=== PATIENT | female | born 1960 | race African-American/Black ===

== ENCOUNTER 2022-03-25 12:27 | Emergency (ER) | payer OTHER ==
--- OUTSIDE RECORDS SUMMARY | 2022-03-25 12:33 | XMS REPORT | Clinical Summary ---
:1960 Author Organization [facility] MD [facility] Address [address] [place] [address] Care Team Providers Name Role Phone Dusty Alvarez MD Primary Care Provider Allergies Active Allergy Reactions Severity Noted Date Comments Codeine Other (See Comments) 01/06/2018 Nausea/ vomiting Iodinated Contrast Media Hives, Swelling, High 12/25/2017 Pt reported Other (See Comments) general ized hives and itchiness, swel ling on the tongue , no SOB noted which happened outsid e facility. On 07/29/2018-pt is premedicated wi th 13 hour and benadr yl 25 mg Tolerates const rast with nephrostom y exchanges. 09/25/20 CT scan NO IV Contrast, Bariu m "banana" given for oral contrast Nitrofurantoin GI Intolerance 07/18/2020 Nausea, vom iting , Monohyd/M-Cryst indigestion Medications Medication Sig Dispensed Refills Start Date End Date Status lidocaine (LIDODERM) 5% Place 1 patch on 30 patch 0 2 Active (700 mg/patch) the skin daily. transdermal Remove & Discard patchIndications: patch within 12 Pyelonephritis hours or as directed by MD. Remove old patch(es) before replacing new patch(es). Additional Information Patient not taking. Reported on 03/20/2022 acetaminophen-codeine Take 1 tablet 30 tablet 0 03/20/2022 Active (TYLENOL #3) 300 mg-30 mg by mouth daily tabletIndications: Chronic as needed for pain, Neoplasm related moderate pain. pain (acute) (chronic) albuterol (VENTOLIN Inhale 1 puff 18 g 0 05/24/201903/27 Discontinued HFA,PROAIR HFA) 90 by mouth (Therapy mcg/puff 6 (six) hours comple yessenia) inhalerIndications: Cough as needed for wheezing or shortness of breath. multivitamin Take 1 tablet 0 03/27 Dis continued (multivitamin) tablet by mouth (Therapy daily. completed) pantoprazole (Protonix) 20 Take 1 tablet 30 tablet 0 01/02 Discontinued mg EC tabletIndications: (20 mg) Encounter for other mouth daily preprocedural examination, with Gastro-esophageal reflux breakfast. disease without esophagitis, not otherwise specified amoxicillin (AMOXIL) 500 Take 1 capsule 14 capsule 0 03/27 Discontinued mg capsuleIndications: (500 mg) by (Therapy Recurrent urinary tract mouth twice completed) infection daily. levoFLOXacin (LEVAQUIN) Take 1 tablet 14 tablet 0 03/06/202105/27 Discontinued 250 mg tabletIndications: (250 mg) by 021 (Therapy Recurrent urinary tract mouth daily. completed) infection acetaminophen-codeine Take 1 tablet 10 tablet 0 03/09/2021 Discontinued (TYLENOL #3) 300 mg-30 mg by mouth (Reorder) tabletIndications: Chronic (three) times pain, Neoplasm related a day as pain (acute) (chronic) needed for moderate pain. acetaminophen-codeine Take 1 tablet 30 tablet 0 03/31/2021 Discontinued (TYLENOL #3) 300 mg-30 mg by mouth (Reorder) tabletIndications: Chronic (three) times pain, Neoplasm related a day as pain (acute) (chronic) needed for moderate pain. ciprofloxacin HCl (CIPRO) Take 1 tablet 14 tablet 0 05/02/202106/23 Discontinued 500 mg tabletIndications: (500 mg) by 2 022 (Reorder) Recurrent urinary tract mouth twice infection daily. ciprofloxacin HCl (CIPRO) Take 1 tablet 32 tablet 0 06/23/202107/09 500 mg tabletIndications: (500 mg) by 2 022 Recurrent urinary tract mouth twice infection daily for 16 days. ciprofloxacin HCl (Cipro) Take 1 tablet 10 tablet 0 07/03/202110/02 Discontinued 250 mg tabletIndications: (250 mg) by Recurrent urinary tract mouth twice infection daily. amoxicillin-clavulanate Take 1 tablet 14 tablet 0 07/03/2021 0 01/02 Discontinued (Augmentin) 875 mg-125 mg (875 mg) by per tabletIndications: mouth twice Recurrent urinary tract daily. infection ciprofloxacin HCl (CIPRO) Take 1 tablet 14 tablet 0 10/02/202101/02 Discontinued 500 mg tabletIndications: (500 mg) by Hydronephrosis with mouth twice ureteral stricture, daily. Recurrent urinary tract infection acetaminophen-codeine Take 1 tablet 30 tablet 0 11/23/2021 Discontinued (TYLENOL #3) 300 mg-30 mg by mouth (Reorder) tabletIndications: Chronic (three) times pain, Neoplasm related a day as pain (acute) (chronic) needed for moderate pain. polyethylene glycol Take 17 g by 30 packet 0 01/06/202202/05 (MIRALAX) 17 g mouth daily packetIndications: Chronic for 30 days. pain NIFEdipine (PROCARDIA XL) Take 1 tablet 30 tablet 0 01/07/202202/06 30 mg 24 hr (30 mg) by tabletIndications: mouth daily Pyelonephritis for 30 days. Additional Information Patient not taking. Reason: she doesnt need it, Reported on 01/10/2022 senna (SENOKOT) 8.6 mg Take 2 tablets 120 tablet 0 01/06/2022 02/05/2022 tabletIndications: by mouth twice Pyelonephritis daily for 30 days. ciprofloxacin HCl (Cipro) Take 1 tablet 20 tablet 0 01/06/2022 01/16/2022 500 mg tabletIndications: (500 mg) by Pyelonephritis mouth twice daily for 10 days. amoxicillin (AMOXIL) 500 mg Take 1 capsule 30 capsule 0 202101/16/2022 capsuleIndications: (500 mg) by Pyelonephritis mouth 3 (three) times a day for 10 days. Active Problems Patient Care Coordination Note Formatting of this note might be differe nt from the original. The following people are approved to obt ain medical information about the patient via phone: Contakct #1: Name: Roel Stewart Contact #2: Name: Phone Number: Contact #3: Name: Phone Number: Contact #4: Name: Phone Number: Problem Noted Date Hydronephrosis with ureteral stricture 04/25/2020 Overview: Added automatically from request for [place] [id number] Generalized headache 03/15/2020 Adjustment disorder with depressed mood 03/15/2020 Vaginal bleeding problem 10/12/2019 Extrinsic ureteral obstruction 07/14/2019 Anemia of chronic disease 06/21/2019 Chronic pain 06/21/2019 Neck pain 05/28/2019 Dyspnea 05/28/2019 Other mechanical complication of nephrostomy catheter 05/24/2019 Cough 05/24/2019 Pleuritic pain 05/24/2019 Hypertension 03/16/2019 Headache 03/16/2019 Anemia in neoplastic disease 03/12/2019 Fever greater than 100.4 Fahrenheit 03/11/2019 Right flank pain 03/11/2019 Pyelonephritis 03/11/2019 Chronic kidney disease stage 3A 02/03/2019 Fever 02/03/2019 Allergy to contrast media 10/14/2018 Severe protein-calorie malnutrition 08/08/2018 Pyelonephritis 08/07/2018 Febrile neutropenia 08/07/2018 Follicular lymphoma grade II 07/30/2018 History of ureteral obstruction 05/23/2018 Overview: Added automatically from request for [place] [id number] Neoplasm related pain (acute) (chronic) 01/29/2018 Urinary tract infectious disease 01/29/2018 Nephrostomy status 01/28/2018 Follicular low grade B-cell lymphoma 01/15/2018 Hydronephrosis 12/26/2017 Dysuria Rhinovirus infection in conditions classified elsewher e and of unspecified site Chronic kidney disease Resolved Problems Problem Noted Date Resolved Date Left flank pain 01/28/2018 06/22/2021 Encounters Date Type Specialty Care Team Description 03/20/2022 Hospital Encounter Pain Medicine Jamie, Chronic pain; Wardnalxioamrahmi, Neoplasm relat ed pain (acute) (chronic) 03/20/2022 Travel 03/20/2022 Orders Only Pain Medicine Jamie, Chronic pain (Primary Dhanalenrikei, Dx) 03/19/2022 Orders Only Pain Medicine Tabansi, Chronic pain ( Primary Annemarie Vasquez MD Dx) 03/12/2022 Office Visit Lymphoma and Myeloma Chelsea Alvarez MD B-cell lymphoma 03/12/2022 Orders Only Radiology Don Melendez MD 03/12/2022 Travel 03/11/2022 Hospital Encounter Radiology Chloe Shaw Follicul ar low grade PA B-cell lymphoma 03/11/2022 Hospital Encounter Lab Chloe Shaw Follicul ar low grade PA B-cell lymphoma 03/11/2022 Travel 01/24/2022 Anesthesia Event Anesthesiology Jarocho Park APN 01/24/2022 POEM Appointments Anesthesiology Kayleen Pace PA 01/11/2022 Orders Only Urology Colleen Alexandra Hydronephrosis with ZHANG Ortiz ureteral strict ure (Primary Dx) 01/10/2022 Anesthesia Event Ambulatory Surgery Kourtney Javier MD French-Bloom, Katy, MD 01/10/2022 Surgery Ambulatory Surgery Devin Husain CYSTOURE THROSCOPY, Jose JOHNS MD WITH REMOVAL OF URETERAL STENT; routine left ur eteral stent exchange 01/10/2022 Ancillary Procedure Radiology Hydronep hrosis with ureteral strict ure 01/10/2022 Hospital Encounter Ambulatory Surgery Devin Husain Hy dronephrosis, not otherwise specified (Primary Dx); Jose JOHNS MD Hydronephrosis with ureteral stricture; Urinary tract i nfectious disease 01/10/2022 Travel 01/09/2022 Anesthesia Event Anesthesiology Deneen Cottrell NP 01/09/2022 POEM Appointments Anesthesiology Devin Husain Hydrone phrosis with Jose JOHNS MD ureteral strict ure 01/08/2022 Office Visit Lymphoma and Myeloma Chelsea Alvarez MD B-cell lymphoma 01/08/2022 Office Visit Urology Devin Husain Hydronephrosis with Jose JOHNS MD ureteral strict ure 01/08/2022 Clinical Support Devin Morales Suspected COVID-19 (Primary Dx); Jose JOHNS MD Hydronephrosis with ureteral stricture Lucy Bishop RN 01/08/2022 Hospital Encounter Radiology Chloe Shaw, No Show PA 01/08/2022 Hospital Encounter Lab Chloe Shaw Angella ar low grade B-cell lymphoma; LIDA Hydronephrosis with ureteral stricture 01/08/2022 Travel 01/05/2022 Anesthesia Event Radiology Summer Sewell, Mally Rivera CRNA 01/05/2022 Travel 01/03/2022 Orders Only Dudley, Feli T, 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 01/02/2022 Documentation Physical Therapy Funmi Soto, PT 01/01/2022 Hospital Encounter GIM/Phase 1 Markides, Urinary t ract infection (Primary Dx); - Genesis Ferrera MD Back pain; 01/06/2022 Giorgi Lewis, Hydronephrosis with ureteral stricture; Nephrostomy status; Mauricio Starr, Hydronephrosi s; Pyelonephritis; Urinary tract i nfectious disease; Chronic pain 01/01/2022 Travel 12/22/2021 POEM Appointments Anesthesiology Katelynn Candeandraed (Error) LIDA Beyer 11/23/2021 Hospital Encounter Pain Medicine Jamie, Chronic pain; Katrin, Neoplasm relat ed pain (acute) (chronic) 11/23/2021 Travel 10/27/2021 Orders Only Radiology Kayleen aPce PA 10/26/2021 Anesthesia Event Radiology Letty Bales MD Benton, Monica, CRNA 10/26/2021 Hospital Encounter Radiology Keith, Nephrosto my status (Primary Dx); LIDA Mendosa Encounter for other preprocedural examin ation; Rolando, Hydronephrosis with ureteral stricture CHUCHO Haney Angela, MD Ahrar, Judy, MD 10/26/2021 Travel 10/25/2021 Anesthesia Event Anesthesiology Angela Baca, KWASI 10/25/2021 POEM Appointments Anesthesiology Dusty Alvarez MD 10/25/2021 Clinical Support Luis Alvarez, Suspected C OVID-19 MD Dusty (Primary Dx) Alexandra Jauregui, RN 10/25/2021 Orders Only Radiology Ariana Vargas PA 10/25/2021 Travel 10/06/2021 Orders Only Urology Colleen Alexandra 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, 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 (Primary Dx) 10/04/2021 Ancillary Procedure Radiology 10/04/2021 Surgery Ambulatory Surgery Devin Husain CYSTOURE THROSCOPY WITH Jose JOHNS MD INSERTION OF INDWELLING URET ERAL STENT; left ure teral stent exchange 10/04/2021 Anesthesia Event Ambulatory Surgery Jaime Gill MD 10/04/2021 Hospital Encounter Ambulatory Surgery Devin Husain Ex trinsic ureteral obstruction (Primary Dx); Jose JOHNS MD Hydronephrosis with ureteral stricture 10/04/2021 Travel 10/03/2021 Anesthesia Event Anesthesiology Lynnette Beltran NP 10/03/2021 POEM Appointments Anesthesiology Devin Husain Extrins ic ureteral Jose JOHNS MD obstruction 10/02/2021 Office Visit Urology Devin Husain Recurrent urin mirella tract infection (Primary Dx); Jose JOHNS MD Hydronephrosis with ureteral stricture 10/02/2021 Clinical Support Devin Morales Suspected COVID-19 (Primary Dx); Jose JOHNS MD Extrinsic ureteral obstruction Erasto Jo RN 10/02/2021 Hospital Encounter Lab Devin Husain Extrinsi c ureteral Jose JOHNS MD obstruction 10/02/2021 Travel 08/15/2021 Orders Only Urology Alexandra, Colleen Extrinsic urete ral Hwan, 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 (Pr imary Dx) 07/27/2021 Anesthesia Event Radiology Lillian Camacho MD Cho, Morgan, CHUCHO 07/27/2021 Hospital Encounter Radiology Alexandra, Colleen Hydroneph rosis with 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, 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 Lillian Camacho MD Cho, Morgan, Dileep Castillo MD 07/27/2021 Orders Only Urology Alexanrda, Colleen Extrinsic urete ral Hwan, 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 (Pr imary Dx) 07/27/2021 Orders Only Radiology Cristin Segura PA 07/27/2021 Travel 07/26/2021 Anesthesia Event Anesthesiology [place] APN 07/26/2021 POEM Appointments Anesthesiology Svetlana Farooq PA 07/26/2021 Clinical Support Luis Alvarez, Suspected C OVID-19 MD Dusty (Primary Dx) Ilir Hough MA 07/26/2021 Orders Only Radiology Akilah Elizabeth PA 07/26/2021 Travel 07/05/2021 Ancillary Procedure Radiology Extrinsi c ureteral obstruction 07/05/2021 Anesthesia Event Ambulatory Surgery Brie Ramon MD 07/05/2021 Surgery Ambulatory Surgery Devin Husain CYSTOURE THROSCOPY, Jose JOHNS MD WITH EXCHANGE O F URETERAL STENT 07/05/2021 Hospital Encounter Ambulatory Surgery Devin Husain Hy dronephrosis with ureteral stricture (Primary Dx); Jose JOHNS MD Extrinsic urete ral obstruction 07/05/2021 Travel 07/04/2021 Travel 07/03/2021 Anesthesia Event Anesthesiology Chrsitelle Salvador MA 07/03/2021 POEM Appointments Anesthesiology Devin Husain Extrins ic ureteral Jose JOHNS MD obstruction 07/03/2021 Office Visit Urology Devin Husain Recurrent urin mirella tract infection (Primary Dx); Jose JOHNS MD Extrinsic urete ral obstruction 07/03/2021 Clinical Support Covid Colleen Alexandra Suspected C OVID-19 (Primary Dx); ZHANG Ortiz Extrinsic ureteral obstruction Angelika Wiley, KWASI 07/03/2021 Hospital Encounter Lab Husain Devin Extrinsi c ureteral obstruction; Jose JOHNS MD Hydronephrosis with ureteral stricture 07/03/2021 Travel 06/24/2021 Telephone Lymphoma and Myeloma Dusty Alvarez MD 06/24/2021 Telephone Kaykay Styles, Discharge Oleksandr salazar RN 06/23/2021 Orders Only Radiology Papa Partida, RT 06/22/2021 Travel 06/21/2021 Emergency Clinical Decision Bernal, Nephrostom y status (Primary Dx); - MD Toy Right flank pain; 06/23/2021 Mckeon, Nephrostomy; Bubba Up MD Hydronephrosis with ureteral stricture; Chaftari, Recurrent urina ry tract infection MD Tristan 06/21/2021 Travel 05/23/2021 Orders Only Radiology Svetlana Farooq PA 05/02/2021 Orders Only Urology Colleen Alexandra Recurrent urina ry ZHANG Ortiz tract infection (Primary Dx) 05/01/2021 Anesthesia Event Radiology Summer Sewell MD 05/01/2021 Hospital Encounter Radiology Colleen Alexandra Hydroneph rosis with ureteral stricture (Primary Dx); ZHANG Ortiz Extrinsic ureteral obstruction Summer Sewell MD Lee, Shelly, CRNA Steele, Joseph R., MD 05/01/2021 Travel 04/28/2021 Anesthesia Event Anesthesiology [place] APN 04/28/2021 POEM Appointments Anesthesiology Dusty Alvarez MD 04/28/2021 Orders Only Radiology Brigette Cisneros PA 04/27/2021 Clinical Support Luis Perez, Encounter f or LIDA Chairez observation for other Eltaha, Roba, suspected expo sure to RN biological agen t ruled out (Primary Dx ) 04/27/2021 Hospital Encounter Lab Mihaela Perez PA 04/27/2021 Travel 04/25/2021 Orders Only Radiology Mihaela Perez PA 04/24/2021 Orders Only Urology Colleen Alexandra Extrinsic urete ral obstruction (Primary Dx); ZHANG Ortiz Recurrent urina ry tract infection 03/31/2021 Hospital 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, Rigoberto, Pleuri tic pain (Primary Dx); Chronic pain; Neoplasm relate d pain (acute) (chronic); History of uret eral obstruction; Flank pain 03/31/2021 Travel 03/27/2021 Office Visit Lymphoma and Myeloma Chelsea Alvarez low grade MD Dusty B-cell lymphoma 03/27/2021 Hospital Encounter Lab Sammi Daley low grade LIDA Yeager B-cell lymphoma 03/27/2021 Travel after 03/25/2021 Immunizations Name Administration Dates Next Due Pfizer SARS-CoV-2 Vaccination (Purple Cap) 01/07/2021, 11/18 Surgical History Surgery Date Site/Laterality Comments HYSTERECTOMY 05/20/2000 - 05/19/2001 RENAL ARTERY STENT 05/20/2017 - Left 05/19/2018 NEPHROSTOMY PERCUTANEOUS 05/20/2017 - Bilateral 05/19/2018 MT CYSTOSCOPY,INSERT 05/29/2018 Ureter/Left Procedure: URETERAL STENT CYSTOURETHROSCOP Y WITH REMOVAL OF INDWE LLING URETERAL STENT; Surgeon: Gurjit Macario IV, MD; Location: [facility] ; Service: UROLOGY APPENDECTOMY 05/20/1994 - Laproscopic 05/19/1995 MT CYSTOSCOPY,INSERT 05/04/2020 Bladder/Bilateral Procedure : URETERAL STENT CYSTOURETHROSCOP Y WITH INSERTION OF IND WELLING URETERAL STENT; Surgeon: Devin Sapp II, MD; [facility]; Service: UROLOGY MT CYSTOURETHROSCOPY 07/13/2020 Ureter/Bilateral Procedure: CYSTOURETHROSCOP Y WITH STENT EXCHANGE A ND RETROGRADE PYELO GRAM; Surgeon: Devin Husain III, MD; Locatio n: [facility]; Service: URO LOGY MT CYSTOSCOPY,INSERT 10/12/2020 Ureter/Bilateral Procedure: URETERAL STENT CYSTOURETHROSCOP Y WITH INSERTION OF IND WELLING URETERAL STENT; Surgeon: Devin Sapp II, MD; [facility]; Service: UROLOGY MT CYSTOSCOPY,REMV 03/08/2021 Genitalia/Bilateral Procedure : CALCULUS,SIMPLE CYSTOURETHROSCOP Y, WITH REMOVAL OF FOREI GN BODY, CALCULUS, OR URE TERAL STENT FROM URETH RA OR BLADDER; exchang e left ureteral stent, removal right ureteral s tent.; Surgeon: Devin Husain III, MD; [facility]atio n: [facility]; Service: URO LOGY MT CYSTOSCOPY,REMV 07/05/2021 Ureter/Left Procedure: CALCULUS,SIMPLE CYSTOURETHROSCOP Y, WITH EXCHANGE OF URET ERAL STENT; Surgeon: Devin Husain III, MD; L ocation: [facility]; Service : UROLOGY MT CYSTOSCOPY,INSERT 10/04/2021 Ureter/Left Procedure: URETERAL STENT CYSTOURETHROSCOP Y WITH INSERTION OF IND WELLING URETERAL STENT; left ureteral stent e xchange; Surgeon: Devin Husain III, MD; [facility]atio n: [facility]; Service: URO LOGY MT CYSTOSCOPY,REMV 01/10/2022 Genitalia/Left Procedure: CALCULUS,SIMPLE CYSTOURETHROSCOP Y, WITH REMOVAL OF URETE RAL STENT; routine left ure teral stent exchange; Surgeon: Devin Sapp II, MD; [facility]; Service: UROLOGY Medical History Medical History Date Comments Menopause 2000 Depressive disorder 2017 Anxiety 2018 Acute renal insufficiency 2018 Cancer Pulmonary embolism 01/28/2018 Urinary tract infection 01/29/2018 Hypertension 03/16/2019 Gastroesophageal reflux disease Adjustment disorder with depressed mood 11/01/2018 Follicular low grade B-cell lymphoma Family History Medical History Relation Name Comments Glaucoma Maternal Grandmother Diabetes Mother Sangeeta Rocael Glaucoma Mother Sangeeta Rocael Macular degeneration Neg Hx Relation Name Status Comments Maternal Grandmother Mother Sangeeta Cote Social History Tobacco Use Types Packs/Day Years Used Date Smoking Tobacco: Former Cigarettes 0.5 5 Smokeless Tobacco: Never Alcohol Use Standard Drinks/Week Comments Not Currently 0 (1 standard drink = 0.6 oz pure only d rink about once per month alcohol) Sex Assigned at Date Recorded Not on file Job Start Date Occupation Industry Not on file Not on file Not on file COVID-19 Exposure Response Date Recorded In the last 10 days, have you been in contact with No / Unsu re 03/20/2022 1:39 PM CDT someone who was confirmed or suspected to have Coronavirus/COVID-19? Obstetrics History Para Term AB IAB SAB Ectopic Multiple Living Live Births 2 2 1 Date Outcome GA Total Labor/2nd/3rd Weight Sex Delivery Anes PTL Karla A 1 A5 Name Clin Labor Para Para Comments Menarche: 13 Menopause 2000 ASHLI/BS 2 SVDs OCP none HRT: none Paps all normal Last Filed Vital Signs Vital Sign Reading Time Taken Comments Blood Pressure 167/97 03/20/2022 2:20 PM CDT Pulse 64 03/20/2022 2:20 PM CDT Temperature 36.8 C (98.2 F) 03/20/2022 2:20 PM CDT Respiratory Rate 16 03/20/2022 2:20 PM CDT Oxygen Saturation 100% 03/12/2022 10:24 AM CDT Inhaled Oxygen Concentration - - Weight 70.8 kg (156 lb 1.4 oz) 03/12/2022 10:16 AM CDT Height 165.1 cm (5' 5") 01/02/2022 3:40 PM CDT Body Mass Index 25.97 01/02/2022 3:40 PM CDT Plan of Treatment Date Type Specialty Care Team Description 03/30/2022 Clinical Support Dusty Nicole MD [address] [place] [phone] 03/30/2022 POEM Appointments Anesthesiology Dusty Alvarez MD [address] [place] [phone] 04/02/2022 Appointment Radiology Mauricio Starr MD [address] [place] [phone] 04/16/2022 Appointment Devin Balderrama III, MD [address] [place] [phone] 04/16/2022 Clinical Support Devin Morales III, MD [address] [place] [phone] 04/16/2022 Office Visit Urology Devin Husain III, MD [address] [place] [phone] 04/18/2022 Hospital Encounter Ambulatory Surgery Devin Husain III, MD [address] [place] [address] 04/18/2022 Surgery Ambulatory Surgery Devin Husain CYSTOU RETHROSCOPYNAT MD WITH REMOVAL OF [address] [place] [address] FOREIGN BODY, [facility] CALCULUS, [place], [place] URETERAL STENT [id number] FROM URETHRA OR [phone] BLADDER; stent (Work) exchange 06/21/2022 Appointment Pain Medicine Katrin Ayala MD [address] [place] [phone] 03/17/2023 Appointment Lab Chloe Shaw PA [address] [place] [phone] 03/17/2023 Appointment Radiology Chloe Shaw PA [address] [place] [phone] 03/18/2023 Office Visit Lymphoma and Myeloma Dusty Alvarez MD [address] [place] [address] Name Priority Associated Diagnoses Date/Time CYSTOURETHROSCOPY, WITH Hydronephrosis with uret eral 04/18/2022 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 CT NECK WO CONTRAST Routine 03/11/2022 11:02 Follicular low gr maria luz Results for this LYMPHOMA AM CDT B-cell lymphoma procedure ar e in the results section. FRACTIONATED BILIRUBIN Routine 03/11/2022 7:27 Follicular low grade Results for this AM CDT B-cell lymphoma procedure ar e in the results section. TOTAL PROTEIN Routine 03/11/2022 7:27 Follicular low grade Res ults for this AM CDT B-cell lymphoma procedure ar e in the results section. ASPARTATE Routine 03/11/2022 7:27 Follicular low grade Resu lts for this AMINOTRANSFERASE AM CDT B-cell lymphoma procedur e are in the results section. ALANINE Routine 03/11/2022 7:27 Follicular low grade Resu lts for this AMINOTRANSFERASE AM CDT B-cell lymphoma procedur e are in the results section. ALKALINE PHOSPHATASE Routine 03/11/2022 7:27 Follicular low gr maria luz Results for this AM CDT B-cell lymphoma procedure ar e in the results section. ALBUMIN LEVEL Routine 03/11/2022 7:27 Follicular low grade Res ults for this AM CDT B-cell lymphoma procedure ar e in the results section. CALCIUM LEVEL TOTAL Routine 03/11/2022 7:27 Follicular low gra de Results for this AM CDT B-cell lymphoma procedure ar e in the results section. .GLOMERULAR FILTRATION Routine 03/11/2022 7:27 Follicular low grade Results for this RATE AM CDT B-cell lymphoma procedure ar e in the results section. SERUM CREATININE Routine 03/11/2022 7:27 Follicular low grade Results for this AM CDT B-cell lymphoma procedure ar e in the results section. ELECTROLYTE PANEL Routine 03/11/2022 7:27 Follicular low grade Results for this AM CDT B-cell lymphoma procedure ar e in the results section. BLOOD UREA NITROGEN Routine 03/11/2022 7:27 Follicular low gra de Results for this AM CDT B-cell lymphoma procedure ar e in the results section. GLUCOSE LEVEL Routine 03/11/2022 7:27 Follicular low grade Res ults for this AM CDT B-cell lymphoma procedure ar e in the results section. MANUAL DIFFERENTIAL Routine 03/11/2022 7:27 Follicular low gra de Results for this AM CDT B-cell lymphoma procedure ar e in the results section. Results CBC Routine 03/11/2022 7:27 Follicular low grade Resu lts for this AM CDT B-cell lymphoma procedure ar e in the results section. URIC ACID Routine 03/11/2022 7:27 Follicular low grade Resu lts for this AM CDT B-cell lymphoma procedure ar e in the results section. LACTATE DEHYDROGENASE Routine 03/11/2022 7:27 Follicular low g rade Results for this AM CDT B-cell lymphoma procedure ar e in the results section. PHOSPHORUS LEVEL Routine 03/11/2022 7:27 Follicular low grade Results for this AM CDT B-cell lymphoma procedure ar e in the results section. MAGNESIUM LEVEL Routine 03/11/2022 7:27 Follicular low grade R esults for this AM CDT B-cell lymphoma procedure ar e in the results section. 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 CYSTOURETHROSCOPY, WITH 01/10/2022 2:09 Hydronephrosis with REMOVAL OF FOREIGN PM CDT ureteral stricture BODY, CALCULUS, OR URETERAL STENT FROM URETHRA OR BLADDER Special Needs PW @ 11:00 RACHEL 1 F/M COVID-19 (SARS-COV-2) Routine 01/08/2022 9:43 Suspected COV ID-19 Results for PCR ASYMPTOMATIC AM CDT this proced ure are in the results section. CLOT EXPIRATION DATE Routine 01/08/2022 9:18 Resu lts for AM CDT this procedure are in the results section. TMP INTERPRETATION Routine 01/08/2022 9:18 Result s for ANTIBODY SCREEN NEGATIVE AM CDT thi s procedure are in the results section. ANTIBODY SCREEN Routine 01/08/2022 9:18 Hydronephrosis with Re sults for AM CDT ureteral stricture this proc edure are in the results section. ABORH Routine 01/08/2022 9:18 Hydronephrosis with Resul ts for AM CDT ureteral stricture this proc edure are in the results section. FRACTIONATED BILIRUBIN Routine 01/08/2022 9:18 Follicular low grade Results for AM CDT B-cell lymphoma this procedu re are in the results section. TOTAL PROTEIN Routine 01/08/2022 9:18 Follicular low grade Res ults for AM CDT B-cell lymphoma this procedu re are in the results section. ASPARTATE Routine 01/08/2022 9:18 Follicular low grade Resu lts for AMINOTRANSFERASE AM CDT B-cell lymphoma this pro cedure are in the results section. ALANINE AMINOTRANSFERASE Routine 01/08/2022 9:18 Follicular lo w grade Results for AM CDT B-cell lymphoma this procedu re are in the results section. ALKALINE PHOSPHATASE Routine 01/08/2022 9:18 Follicular low gr maria luz Results for AM CDT B-cell lymphoma this procedu re are in the results section. ALBUMIN LEVEL Routine 01/08/2022 9:18 Follicular low grade Res ults for AM CDT B-cell lymphoma this procedu re are in the results section. CALCIUM LEVEL TOTAL Routine 01/08/2022 9:18 Follicular low gra de Results for AM CDT B-cell lymphoma this procedu re are in the results section. .GLOMERULAR FILTRATION Routine 01/08/2022 9:18 Follicular low grade Results for RATE AM CDT B-cell lymphoma this procedu re are in the results section. 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 BLOOD UREA NITROGEN Routine 01/08/2022 9:18 Follicular low gra de Results for AM CDT B-cell lymphoma this procedu re are in the results section. GLUCOSE LEVEL Routine 01/08/2022 9:18 Follicular low grade Res ults for AM CDT B-cell lymphoma this procedu re are in the results section. MANUAL DIFFERENTIAL Routine 01/08/2022 9:18 Follicular low gra de Results for AM CDT B-cell lymphoma this procedu re are in the results section. Results CBC Routine 01/08/2022 9:18 Follicular low grade Resu lts for AM CDT B-cell lymphoma this procedu re are in the results section. TYPE AND SCREEN Routine 01/08/2022 9:18 Hydronephrosis with AM CDT ureteral stricture URIC ACID Routine 01/08/2022 9:18 Follicular low grade Resu lts for AM CDT B-cell lymphoma this procedu re are in the results section. LACTATE DEHYDROGENASE Routine 01/08/2022 9:18 Follicular low g rade Results for AM CDT B-cell lymphoma this procedu re are in the results section. 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 MAGNESIUM LEVEL Routine 01/08/2022 9:18 Follicular low grade R esults for AM CDT B-cell lymphoma this procedu re are in the results section. COMPREHENSIVE METABOLIC Routine 01/08/2022 9:18 Follicular low grade PANEL AM CDT B-cell lymphoma COMPLETE BLOOD COUNT W/ Routine 01/08/2022 9:18 Follicular low grade DIFFERENTIAL AM CDT B-cell lymphoma FRACTIONATED BILIRUBIN AM 01/06/2022 8:24 Re sults for AM CDT this procedure are in the results section. TOTAL PROTEIN AM 01/06/2022 8:24 Results for AM CDT this procedure are in the results section. ASPARTATE AM 01/06/2022 8:24 Results for AMINOTRANSFERASE AM CDT this proced ure are in the results section. ALANINE AMINOTRANSFERASE AM 01/06/2022 8:24 Results for AM CDT this procedure are in the results section. ALKALINE PHOSPHATASE AM 01/06/2022 8:24 Resu lts for AM CDT this procedure are in the results section. ALBUMIN LEVEL AM 01/06/2022 8:24 Results for AM CDT this procedure are in the results section. CALCIUM LEVEL TOTAL AM 01/06/2022 8:24 Resul ts for AM CDT this procedure are in the results section. .GLOMERULAR FILTRATION AM 01/06/2022 8:24 Re sults for RATE AM CDT this procedure are in the results section. SERUM CREATININE AM 01/06/2022 8:24 Results for AM CDT this procedure are in the results section. ELECTROLYTE PANEL AM 01/06/2022 8:24 Results for AM CDT this procedure are in the results section. BLOOD UREA NITROGEN AM 01/06/2022 8:24 Resul ts for AM CDT this procedure are in the results section. GLUCOSE LEVEL AM 01/06/2022 8:24 Results for AM CDT this procedure are in the results section. MANUAL DIFFERENTIAL AM 01/06/2022 8:24 Resul ts for AM CDT this procedure are in the results section. Results CBC AM 01/06/2022 8:24 Results for AM CDT this procedure are in the results section. PHOSPHORUS LEVEL AM 01/06/2022 8:24 Results for AM CDT this procedure are in the results section. MAGNESIUM LEVEL AM 01/06/2022 8:24 Results f or AM CDT this procedure are in the results section. COMPREHENSIVE METABOLIC AM 01/06/2022 8:24 PANEL AM CDT COMPLETE BLOOD COUNT W/ AM 01/06/2022 8:24 DIFFERENTIAL AM CDT IR NEPHROSTOMY EXCHANGE Routine 01/05/2022 10:03 Pyelonephriti s Results for AM CDT this procedure are in the results section. FRACTIONATED BILIRUBIN AM 01/05/2022 5:37 Re sults for AM CDT this procedure are in the results section. TOTAL PROTEIN AM 01/05/2022 5:37 Results for AM CDT this procedure are in the results section. ASPARTATE AM 01/05/2022 5:37 Results for AMINOTRANSFERASE AM CDT this proced ure are in the results section. ALANINE AMINOTRANSFERASE AM 01/05/2022 5:37 Results for AM CDT this procedure are in the results section. ALKALINE PHOSPHATASE AM 01/05/2022 5:37 Resu lts for AM CDT this procedure are in the results section. ALBUMIN LEVEL AM 01/05/2022 5:37 Results for AM CDT this procedure are in the results section. CALCIUM LEVEL TOTAL AM 01/05/2022 5:37 Resul ts for AM CDT this procedure are in the results section. .GLOMERULAR FILTRATION AM 01/05/2022 5:37 Re sults for RATE AM CDT this procedure are in the results section. SERUM CREATININE AM 01/05/2022 5:37 Results for AM CDT this procedure are in the results section. ELECTROLYTE PANEL AM 01/05/2022 5:37 Results for AM CDT this procedure are in the results section. BLOOD UREA NITROGEN AM 01/05/2022 5:37 Resul ts for AM CDT this procedure are in the results section. GLUCOSE LEVEL AM 01/05/2022 5:37 Results for AM CDT this procedure are in the results section. MANUAL DIFFERENTIAL AM 01/05/2022 5:37 Resul ts for AM CDT this procedure are in the results section. Results CBC AM 01/05/2022 5:37 Results for AM CDT this procedure are in the results section. PHOSPHORUS LEVEL AM 01/05/2022 5:37 Results for AM CDT this procedure are in the results section. MAGNESIUM LEVEL AM 01/05/2022 5:37 Results f or AM CDT this procedure are in the results section. COMPREHENSIVE METABOLIC AM 01/05/2022 5:37 PANEL AM CDT COMPLETE BLOOD COUNT W/ AM 01/05/2022 5:37 DIFFERENTIAL AM CDT FRACTIONATED BILIRUBIN AM 01/04/2022 4:22 Re sults for AM CDT this procedure are in the results section. TOTAL PROTEIN AM 01/04/2022 4:22 Results for AM CDT this procedure are in the results section. ASPARTATE AM 01/04/2022 4:22 Results for AMINOTRANSFERASE AM CDT this proced ure are in the results section. ALANINE AMINOTRANSFERASE AM 01/04/2022 4:22 Results for AM CDT this procedure are in the results section. ALKALINE PHOSPHATASE AM 01/04/2022 4:22 Resu lts for AM CDT this procedure are in the results section. ALBUMIN LEVEL AM 01/04/2022 4:22 Results for AM CDT this procedure are in the results section. CALCIUM LEVEL TOTAL AM 01/04/2022 4:22 Resul ts for AM CDT this procedure are in the results section. .GLOMERULAR FILTRATION AM 01/04/2022 4:22 Re sults for RATE AM CDT this procedure are in the results section. SERUM CREATININE AM 01/04/2022 4:22 Results for AM CDT this procedure are in the results section. ELECTROLYTE PANEL AM 01/04/2022 4:22 Results for AM CDT this procedure are in the results section. BLOOD UREA NITROGEN AM 01/04/2022 4:22 Resul ts for AM CDT this procedure are in the results section. GLUCOSE LEVEL AM 01/04/2022 4:22 Results for AM CDT this procedure are in the results section. MANUAL DIFFERENTIAL AM 01/04/2022 4:22 Resul ts for AM CDT this procedure are in the results section. Results CBC AM 01/04/2022 4:22 Results for AM CDT this procedure are in the results section. PHOSPHORUS LEVEL AM 01/04/2022 4:22 Results for AM CDT this procedure are in the results section. MAGNESIUM LEVEL AM 01/04/2022 4:22 Results f or AM CDT this procedure are in the results section. COMPREHENSIVE METABOLIC AM 01/04/2022 4:22 PANEL AM CDT COMPLETE BLOOD COUNT W/ AM 01/04/2022 4:22 DIFFERENTIAL AM CDT XR ABDOMEN AP Routine 01/03/2022 11:30 Results fo r AM CDT this procedure are in the results section. FRACTIONATED BILIRUBIN AM 01/03/2022 4:40 Re sults for AM CDT this procedure are in the results section. TOTAL PROTEIN AM 01/03/2022 4:40 Results for AM CDT this procedure are in the results section. ASPARTATE AM 01/03/2022 4:40 Results for AMINOTRANSFERASE AM CDT this proced ure are in the results section. ALANINE AMINOTRANSFERASE AM 01/03/2022 4:40 Results for AM CDT this procedure are in the results section. ALKALINE PHOSPHATASE AM 01/03/2022 4:40 Resu lts for AM CDT this procedure are in the results section. ALBUMIN LEVEL AM 01/03/2022 4:40 Results for AM CDT this procedure are in the results section. CALCIUM LEVEL TOTAL AM 01/03/2022 4:40 Resul ts for AM CDT this procedure are in the results section. .GLOMERULAR FILTRATION AM 01/03/2022 4:40 Re sults for RATE AM CDT this procedure are in the results section. SERUM CREATININE AM 01/03/2022 4:40 Results for AM CDT this procedure are in the results section. ELECTROLYTE PANEL AM 01/03/2022 4:40 Results for AM CDT this procedure are in the results section. BLOOD UREA NITROGEN AM 01/03/2022 4:40 Resul ts for AM CDT this procedure are in the results section. GLUCOSE LEVEL AM 01/03/2022 4:40 Results for AM CDT this procedure are in the results section. MANUAL DIFFERENTIAL AM 01/03/2022 4:40 Resul ts for AM CDT this procedure are in the results section. Results CBC AM 01/03/2022 4:40 Results for AM CDT this procedure are in the results section. PHOSPHORUS LEVEL AM 01/03/2022 4:40 Results for AM CDT this procedure are in the results section. MAGNESIUM LEVEL AM 01/03/2022 4:40 Results f or AM CDT this procedure are in the results section. COMPREHENSIVE METABOLIC AM 01/03/2022 4:40 PANEL AM CDT COMPLETE BLOOD COUNT W/ AM 01/03/2022 4:40 DIFFERENTIAL AM CDT FRACTIONATED BILIRUBIN STAT 01/02/2022 12:55 R esults for PM CDT this procedure are in the results section. TOTAL PROTEIN STAT 01/02/2022 12:55 Results fo r PM CDT this procedure are in the results section. ASPARTATE STAT 01/02/2022 12:55 Results for AMINOTRANSFERASE PM CDT this proced ure are in the results section. ALANINE AMINOTRANSFERASE STAT 01/02/2022 12:55 Results for PM CDT this procedure are in the results section. ALKALINE PHOSPHATASE STAT 01/02/2022 12:55 Res ults for PM CDT this procedure are in the results section. ALBUMIN LEVEL STAT 01/02/2022 12:55 Results fo r PM CDT this procedure are in the results section. CALCIUM LEVEL TOTAL STAT 01/02/2022 12:55 Resu lts for PM CDT this procedure are in the results section. .GLOMERULAR FILTRATION STAT 01/02/2022 12:55 R esults for RATE PM CDT this procedure are in the results section. SERUM CREATININE STAT 01/02/2022 12:55 Results for PM CDT this procedure are in the results section. ELECTROLYTE PANEL STAT 01/02/2022 12:55 Result s for PM CDT this procedure are in the results section. BLOOD UREA NITROGEN STAT 01/02/2022 12:55 Resu lts for PM CDT this procedure are in the results section. GLUCOSE LEVEL STAT 01/02/2022 12:55 Results fo r PM CDT this procedure are in the results section. MANUAL DIFFERENTIAL STAT 01/02/2022 12:55 Resu lts for PM CDT this procedure are in the results section. Results CBC STAT 01/02/2022 12:55 Results for PM CDT this procedure are in the results section. PHOSPHORUS LEVEL STAT 01/02/2022 12:55 Results for PM CDT this procedure are in the results section. MAGNESIUM LEVEL STAT 01/02/2022 12:55 Results for PM CDT this procedure are in the results section. COMPREHENSIVE METABOLIC STAT 01/02/2022 12:55 PANEL PM CDT COMPLETE BLOOD COUNT W/ STAT 01/02/2022 12:55 DIFFERENTIAL PM CDT URINALYSIS MICROSCOPIC Routine 01/02/2022 2:53 Re sults for AM CDT this procedure are in the results section. URINALYSIS WITH Now 01/02/2022 2:53 Results f or MICROSCOPIC IF INDICATED AM CDT thi s procedure are in the results section. CT ABDOMEN PELVIS WO STAT 01/02/2022 1:42 Resu lts for CONTRAST AM CDT this procedure are in the results section. URINE CULTURE Now 01/01/2022 11:54 Results fo r PM CDT this procedure are in the results section. BLOODCULTURE Now 01/01/2022 11:54 Results for PM CDT this procedure are in the results section. URINALYSIS MICROSCOPIC Routine 01/01/2022 10:27 R esults for PM CDT this procedure are in the results section. URINALYSIS WITH Now 01/01/2022 10:27 Results for MICROSCOPIC IF INDICATED PM CDT thi s procedure are in the results section. URINE CULTURE Now 01/01/2022 10:27 Results fo r PM CDT this procedure are in the results section. POC GLUCOSE SCREEN Routine 01/01/2022 10:01 Resul ts for PM CDT this procedure are in the results section. XR ABDOMEN AP Routine 01/01/2022 9:49 Results for PM CDT this procedure are in the results section. POC VENOUS BLOOD GAS + Routine 01/01/2022 9:33 Re sults for LACTATE PM CDT this procedure are in the results section. TOTAL PROTEIN Now 01/01/2022 9:31 Results for PM CDT this procedure are in the results section. ASPARTATE Now 01/01/2022 9:31 Results for AMINOTRANSFERASE PM CDT this proced ure are in the results section. ALANINE AMINOTRANSFERASE Now 01/01/2022 9:31 Results for PM CDT this procedure are in the results section. ALKALINE PHOSPHATASE Now 01/01/2022 9:31 Resu lts for PM CDT this procedure are in the results section. ALBUMIN LEVEL Now 01/01/2022 9:31 Results for PM CDT this procedure are in the results section. CALCIUM LEVEL TOTAL Now 01/01/2022 9:31 Resul ts for PM CDT this procedure are in the results section. .GLOMERULAR FILTRATION Now 01/01/2022 9:31 Re sults for RATE PM CDT this procedure are in the results section. SERUM CREATININE Now 01/01/2022 9:31 Results for PM CDT this procedure are in the results section. ELECTROLYTE PANEL Now 01/01/2022 9:31 Results for PM CDT this procedure are in the results section. BLOOD UREA NITROGEN Now 01/01/2022 9:31 Resul ts for PM CDT this procedure are in the results section. GLUCOSE LEVEL Now 01/01/2022 9:31 Results for PM CDT this procedure are in the results section. MANUAL DIFFERENTIAL STAT 01/01/2022 9:31 Resul ts for PM CDT this procedure are in the results section. Results CBC STAT 01/01/2022 9:31 Results for PM CDT this procedure are in the results section. PROCALCITONIN Now 01/01/2022 9:31 Results for PM CDT this procedure are in the results section. COMPREHENSIVE METABOLIC Now 01/01/2022 9:31 PANEL PM CDT C REACTIVE PROTEIN Now 01/01/2022 9:31 Result s for PM CDT this procedure are in the results section. LACTATE DEHYDROGENASE Now 01/01/2022 9:31 Res ults for PM CDT this procedure are in the results section. LIPASE LEVEL Now 01/01/2022 9:31 Results for PM CDT this procedure are in the results section. AMYLASE LEVEL Now 01/01/2022 9:31 Results for PM CDT this procedure are in the results section. FRACTIONATED BILIRUBIN Now 01/01/2022 9:31 Re sults for PM CDT this procedure are in the results section. PHOSPHORUS LEVEL Now 01/01/2022 9:31 Results for PM CDT this procedure are in the results section. MAGNESIUM LEVEL Now 01/01/2022 9:31 Results f or PM CDT this procedure are in the results section. COMPLETE BLOOD COUNT W/ Now 01/01/2022 9:31 DIFFERENTIAL PM CDT COVID-19 (SARS-COV-2) Now 01/01/2022 9:31 Res ults for ASYMPTOMATIC-LT PM CDT this procedu re are in the results section. BLOODCULTURE Now 01/01/2022 9:31 Results for PM CDT this procedure are in the results section. IR NEPHROSTOMY EXCHANGE Routine 10/26/2021 12:27 Results for PM CDT this procedure are in the results section. COVID-19 (SARS-COV-2) Routine 10/25/2021 10:07 Re sults for PCR-ASYMPTOMATIC MC AM CDT this pro cedure are in the results section. 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 CYSTOURETHROSCOPY WITH 10/04/2021 7:27 Extrinsic urete ral INSERTION OF INDWELLING AM CDT obstruction URETERAL STENT Special Needs VS [address] COVID-19 Routine 10/02/2021 8:55 Suspected COVID-19 Result s for this (SARS-COV-2) PCR AM CDT procedure a re in ASYMPTOMATIC the results section. GUA MICROSCOPIC Routine 10/02/2021 8:46 Results f or this AM CDT procedure are i n the results section. GUA Routine 10/02/2021 8:46 Extrinsic ureteral Result s for this AM CDT obstruction procedure are i n the results section. URINE CULTURE Routine 10/02/2021 8:46 Results for this AM CDT procedure are i n the results section. CLOT EXPIRATION DATE Routine 10/02/2021 8:41 Resu lts for this AM CDT procedure are i n the results section. TMP INTERPRETATION Routine 10/02/2021 8:41 Result s for this ANTIBODY SCREEN AM CDT procedure ar e in NEGATIVE the results section. FRACTIONATED BILIRUBIN Routine 10/02/2021 8:41 Extrinsic urete ral Results for this AM CDT obstruction procedure are i n the results section. TOTAL PROTEIN Routine 10/02/2021 8:41 Extrinsic ureteral Resul ts for this AM CDT obstruction procedure are i n the results section. ASPARTATE Routine 10/02/2021 8:41 Extrinsic ureteral Result s for this AMINOTRANSFERASE AM CDT obstruction procedure a re in the results section. ALANINE Routine 10/02/2021 8:41 Extrinsic ureteral Result s for this AMINOTRANSFERASE AM CDT obstruction procedure a re in the results section. ALKALINE PHOSPHATASE Routine 10/02/2021 8:41 Extrinsic uretera l Results for this AM CDT obstruction procedure are i n the results section. ALBUMIN LEVEL Routine 10/02/2021 8:41 Extrinsic ureteral Resul ts for this AM CDT obstruction procedure are i n the results section. CALCIUM LEVEL TOTAL Routine 10/02/2021 8:41 Extrinsic ureteral Results for this AM CDT obstruction procedure are i n the results section. .GLOMERULAR FILTRATION Routine 10/02/2021 8:41 Extrinsic urete ral Results for this RATE AM CDT obstruction procedure are i n the results section. SERUM CREATININE Routine 10/02/2021 8:41 Extrinsic ureteral Re sults for this AM CDT obstruction procedure are i n the results section. ELECTROLYTE PANEL Routine 10/02/2021 8:41 Extrinsic ureteral R esults for this AM CDT obstruction procedure are i n the results section. BLOOD UREA NITROGEN Routine 10/02/2021 8:41 Extrinsic ureteral Results for this AM CDT obstruction procedure are i n the results section. ANTIBODY SCREEN Routine 10/02/2021 8:41 Extrinsic ureteral Res ults for this AM CDT obstruction procedure are i n the results section. ABORH Routine 10/02/2021 8:41 Extrinsic ureteral Result s for this AM CDT obstruction procedure are i n the results section. GLUCOSE LEVEL Routine 10/02/2021 8:41 Extrinsic ureteral Resul ts for this AM CDT obstruction procedure are i n the results section. MANUAL DIFFERENTIAL Routine 10/02/2021 8:41 Extrinsic ureteral Results for this AM CDT obstruction procedure are i n the results section. Results CBC Routine 10/02/2021 8:41 Extrinsic ureteral Result s for this AM CDT obstruction procedure are i n the results section. TYPE AND SCREEN Routine 10/02/2021 8:41 Extrinsic ureteral AM CDT obstruction HEMOGLOBIN A1C Routine 10/02/2021 8:41 Extrinsic ureteral Resu lts for this AM CDT obstruction procedure are i n the results section. COMPREHENSIVE METABOLIC Routine 10/02/2021 8:41 Extrinsic uret eral PANEL AM CDT obstruction COMPLETE BLOOD COUNT W/ Routine 10/02/2021 8:41 Extrinsic uret eral DIFFERENTIAL AM CDT obstruction IR NEPHROSTOMY EXCHANGE Routine 07/27/2021 8:58 Hydronephrosis with Results for this AM [employer] ureteral stricture procedure are in the results section. COVID-19 Routine 07/26/2021 8:57 Suspected COVID-19 Result s for this (SARS-COV-2) PCR AM [employer] procedure a re in ASYMPTOMATIC the results section. FL PORTABLE FLUOROSCOPY Routine 07/05/2021 11:08 Extrinsic ure teral Results for this AM [employer] obstruction procedure are i n the results section. CYSTOURETHROSCOPY, WITH 07/05/2021 9:55 Extrinsic uret eral REMOVAL OF FOREIGN AM [employer] obstruction BODY, CALCULUS, OR URETERAL STENT FROM URETHRA OR BLADDER Special Needs PW @ 800 AM RACHEL 1 F/M COVID-19 Routine 07/03/2021 10:16 Suspected COVID-19 Resul ts for this (SARS-COV-2) PCR AM [employer] procedure a re in ASYMPTOMATIC the results section. CLOT EXPIRATION DATE Routine 07/03/2021 9:43 Resu lts for this AM [employer] procedure are i n the results section. TMP INTERPRETATION Routine 07/03/2021 9:43 Result s for this ANTIBODY SCREEN AM [employer] procedure ar e in NEGATIVE the results section. GUA MICROSCOPIC Routine 07/03/2021 9:43 Results f or this AM [employer] procedure are i n the results section. ANTIBODY SCREEN Routine 07/03/2021 9:43 Extrinsic ureteral Res ults for this AM [employer] obstruction procedure are i n the results section. ABORH Routine 07/03/2021 9:43 Extrinsic ureteral Result s for this AM [employer] obstruction procedure are i n the results section. FRACTIONATED BILIRUBIN Routine 07/03/2021 9:43 Extrinsic urete ral Results for this AM [employer] obstruction procedure are i n the results section. TOTAL PROTEIN Routine 07/03/2021 9:43 Extrinsic ureteral Resul ts for this AM [employer] obstruction procedure are i n the results section. ASPARTATE Routine 07/03/2021 9:43 Extrinsic ureteral Result s for this AMINOTRANSFERASE AM [employer] obstruction procedure a re in the results section. ALANINE Routine 07/03/2021 9:43 Extrinsic ureteral Result s for this AMINOTRANSFERASE AM [employer] obstruction procedure a re in the results section. ALKALINE PHOSPHATASE Routine 07/03/2021 9:43 Extrinsic uretera l Results for this AM [employer] obstruction procedure are i n the results section. ALBUMIN LEVEL Routine 07/03/2021 9:43 Extrinsic ureteral Resul ts for this AM [employer] obstruction procedure are i n the results section. CALCIUM LEVEL TOTAL Routine 07/03/2021 9:43 Extrinsic ureteral Results for this AM [employer] obstruction procedure are i n the results section. .GLOMERULAR FILTRATION Routine 07/03/2021 9:43 Extrinsic urete ral Results for this RATE AM [employer] obstruction procedure are i n the results section. SERUM CREATININE Routine 07/03/2021 9:43 Extrinsic ureteral Re sults for this AM [employer] obstruction procedure are i n the results section. ELECTROLYTE PANEL Routine 07/03/2021 9:43 Extrinsic ureteral R esults for this AM [employer] obstruction procedure are i n the results section. BLOOD UREA NITROGEN Routine 07/03/2021 9:43 Extrinsic ureteral Results for this AM [employer] obstruction procedure are i n the results section. GLUCOSE LEVEL Routine 07/03/2021 9:43 Extrinsic ureteral Resul ts for this AM [employer] obstruction procedure are i n the results section. MANUAL DIFFERENTIAL Routine 07/03/2021 9:43 Extrinsic ureteral Results for this AM [employer] obstruction procedure are i n the results section. Results CBC Routine 07/03/2021 9:43 Extrinsic ureteral Result s for this AM [employer] obstruction procedure are i n the results section. GUA Routine 07/03/2021 9:43 Hydronephrosis with Resul ts for this AM [employer] ureteral stricture procedure are in the results section. 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 US ARM VENOUS DOPPLER STAT 06/23/2021 2:00 Res ults for this LEFT PM [employer] procedure are i n the results section. CT ABDOMEN PELVIS W STAT 06/22/2021 6:44 Resul ts for this CONTRAST PM [employer] procedure are i n the results section. URINALYSIS WITH Routine 06/22/2021 5:45 Results f or this MICROSCOPIC IF PM [employer] procedure are in INDICATED the results section. URINALYSIS MICROSCOPIC Now 06/22/2021 5:45 Re sults for this PM [employer] procedure are i n the results section. URINE CULTURE Now 06/22/2021 5:45 Results for this PM [employer] procedure are i n the results section. URINALYSIS MICROSCOPIC STAT 06/22/2021 6:48 Re sults for this AM [employer] procedure are i n the results section. URINALYSIS WITH STAT 06/22/2021 6:48 Results f or this MICROSCOPIC IF AM [employer] procedure are in INDICATED the results section. URINE CULTURE Now 06/22/2021 6:48 Results for this AM [employer] procedure are i n the results section. MANUAL DIFFERENTIAL STAT 06/22/2021 4:32 Resul ts for this AM [employer] procedure are i n the results section. Results CBC STAT 06/22/2021 4:32 Results for this AM [employer] procedure are i n the results section. CALCIUM LEVEL TOTAL STAT 06/22/2021 4:32 Resul ts for this AM [employer] procedure are i n the results section. .GLOMERULAR FILTRATION STAT 06/22/2021 4:32 Re sults for this RATE AM [employer] procedure are i n the results section. SERUM CREATININE STAT 06/22/2021 4:32 Results for this AM [employer] procedure are i n the results section. ELECTROLYTE PANEL STAT 06/22/2021 4:32 Results for this AM [employer] procedure are i n the results section. BLOOD UREA NITROGEN STAT 06/22/2021 4:32 Resul ts for this AM [employer] procedure are i n the results section. GLUCOSE LEVEL STAT 06/22/2021 4:32 Results for this AM [employer] procedure are i n the results section. PROCALCITONIN STAT 06/22/2021 4:32 Results for this AM [employer] procedure are i n the results section. PHOSPHORUS LEVEL STAT 06/22/2021 4:32 Results for this AM [employer] procedure are i n the results section. MAGNESIUM LEVEL STAT 06/22/2021 4:32 Results f or this AM [employer] procedure are i n the results section. COMPLETE BLOOD COUNT W/ STAT 06/22/2021 4:32 DIFFERENTIAL AM [employer] BASIC METABOLIC PANEL, STAT 06/22/2021 4:32 CALCIUM TOTAL AM [employer] POC VENOUS BLOOD GAS + Routine 06/21/2021 7:41 Re sults for this LACTATE PM [employer] procedure are i n the results section. COVID-19 (SARS-COV-2) Now 06/21/2021 6:50 Res ults for this ASYMPTOMATIC-LT PM [employer] procedure ar e in the results section. XR CHEST 1 VW STAT 06/21/2021 6:22 Results for this PM [employer] procedure are i n the results section. ELECTROLYTE PANEL Now 06/21/2021 5:12 Results for this PM [employer] procedure are i n the results section. MANUAL DIFFERENTIAL STAT 06/21/2021 5:12 Resul ts for this PM [employer] procedure are i n the results section. Results CBC STAT 06/21/2021 5:12 Results for this PM [employer] procedure are i n the results section. FRACTIONATED BILIRUBIN Now 06/21/2021 5:12 Re sults for this PM [employer] procedure are i n the results section. TOTAL PROTEIN Now 06/21/2021 5:12 Results for this PM [employer] procedure are i n the results section. ASPARTATE Now 06/21/2021 5:12 Results for this AMINOTRANSFERASE PM [employer] procedure a re in the results section. ALANINE Now 06/21/2021 5:12 Results for this AMINOTRANSFERASE PM [employer] procedure a re in the results section. ALKALINE PHOSPHATASE Now 06/21/2021 5:12 Resu lts for this PM [employer] procedure are i n the results section. ALBUMIN LEVEL Now 06/21/2021 5:12 Results for this PM [employer] procedure are i n the results section. CALCIUM LEVEL TOTAL Now 06/21/2021 5:12 Resul ts for this PM [employer] procedure are i n the results section. .GLOMERULAR FILTRATION Now 06/21/2021 5:12 Re sults for this RATE PM [employer] procedure are i n the results section. SERUM CREATININE Now 06/21/2021 5:12 Results for this PM [employer] procedure are i n the results section. BLOOD UREA NITROGEN Now 06/21/2021 5:12 Resul ts for this PM [employer] procedure are i n the results section. GLUCOSE LEVEL Now 06/21/2021 5:12 Results for this PM [employer] procedure are i n the results section. APTT Now 06/21/2021 5:12 Results for this PM [employer] procedure are i n the results section. PROTHROMBIN TIME Now 06/21/2021 5:12 Results for this PM [employer] procedure are i n the results section. COMPLETE BLOOD COUNT W/ Now 06/21/2021 5:12 DIFFERENTIAL PM [employer] COMPREHENSIVE METABOLIC Now 06/21/2021 5:12 PANEL PM [employer] BLOODCULTURE Now 06/21/2021 5:12 Results for this PM [employer] procedure are i n the results section. IR NEPHROSTOMY EXCHANGE Routine 05/01/2021 12:36 Extrinsic ure teral Results for this PM [employer] obstruction procedure are i n the results section. TMP INTERPRETATION Routine 04/27/2021 10:31 Resul ts for this ANTIBODY SCREEN AM [employer] procedure ar e in NEGATIVE the results section. CLOT EXPIRATION DATE Routine 04/27/2021 10:31 Res ults for this AM [employer] procedure are i n the results section. ANION GAP Routine 04/27/2021 10:31 Results for this AM [employer] procedure are i n the results section. ANTIBODY SCREEN Routine 04/27/2021 10:31 Results for this AM [employer] procedure are i n the results section. ABORH Routine 04/27/2021 10:31 Results for this AM [employer] procedure are i n the results section. .GLOMERULAR FILTRATION Routine 04/27/2021 10:31 R esults for this RATE AM [employer] procedure are i n the results section. SERUM CREATININE Routine 04/27/2021 10:31 Results for this AM [employer] procedure are i n the results section. MANUAL DIFFERENTIAL Routine 04/27/2021 10:31 Resu lts for this AM [employer] procedure are i n the results section. Results CBC Routine 04/27/2021 10:31 Results for this AM [employer] procedure are i n the results section. TYPE AND SCREEN Routine 04/27/2021 10:31 AM [employer] GLUCOSE, RANDOM Routine 04/27/2021 10:31 Results for this AM [employer] procedure are i n the results section. BLOOD UREA NITROGEN Routine 04/27/2021 10:31 Resu lts for this AM [employer] procedure are i n the results section. SERUM CREATININE Routine 04/27/2021 10:31 AM [employer] POTASSIUM LEVEL Routine 04/27/2021 10:31 Results for this AM [employer] procedure are i n the results section. SODIUM LEVEL Routine 04/27/2021 10:31 Results for this AM [employer] procedure are i n the results section. CHLORIDE LEVEL Routine 04/27/2021 10:31 Results f or this AM [employer] procedure are i n the results section. CARBON DIOXIDE LEVEL Routine 04/27/2021 10:31 Res ults for this AM [employer] procedure are i n the results section. COMPLETE BLOOD COUNT W/ Routine 04/27/2021 10:31 DIFFERENTIAL AM [employer] COVID-19 (SARS-COV-2) Routine 04/27/2021 10:10 Encounter for R esults for this PCR-ASYMPTOMATIC MC AM [employer] observation for other procedure are in suspected exposure to the [facility] biological agent section. ruled out PROTHROMBIN TIME Routine 04/27/2021 9:49 Results for this AM [employer] procedure are i n the results section. .GLOMERULAR FILTRATION Routine 03/27/2021 11:30 Follicular low grade Results for this RATE [employer] B-cell lymphoma procedure ar e in the results section. SERUM CREATININE Routine 03/27/2021 11:30 Follicular low grade Results for this AM [employer] B-cell lymphoma procedure ar e in the results section. MANUAL DIFFERENTIAL Routine 03/27/2021 11:30 Follicular low gr maria luz Results for this AM [employer] B-cell lymphoma procedure ar e in the results section. Results CBC Routine 03/27/2021 11:30 Follicular low grade Res ults for this AM [employer] B-cell lymphoma procedure ar e in the results section. ELECTROLYTE PANEL Routine 03/27/2021 11:30 Follicular low grad e Results for this AM [employer] B-cell lymphoma procedure ar e in the results section. ASPARTATE Routine 03/27/2021 11:30 Follicular low grade Res ults for this AMINOTRANSFERASE AM [employer] B-cell lymphoma procedur e are in the results section. MAGNESIUM LEVEL Routine 03/27/2021 11:30 Follicular low grade Results for this AM [employer] B-cell lymphoma procedure ar e in the results section. ALANINE Routine 03/27/2021 11:30 Follicular low grade Res ults for this AMINOTRANSFERASE AM [employer] B-cell lymphoma procedur e are in the results section. LACTATE DEHYDROGENASE Routine 03/27/2021 11:30 Follicular low grade Results for this AM [employer] B-cell lymphoma procedure ar e in the results section. ALKALINE PHOSPHATASE Routine 03/27/2021 11:30 Follicular low g rade Results for this AM [employer] B-cell lymphoma procedure ar e in the results section. FRACTIONATED BILIRUBIN Routine 03/27/2021 11:30 Follicular low grade Results for this AM [employer] B-cell lymphoma procedure ar e in the results section. URIC ACID Routine 03/27/2021 11:30 Follicular low grade Res ults for this AM [employer] B-cell lymphoma procedure ar e in the results section. SERUM CREATININE Routine 03/27/2021 11:30 Follicular low grade AM [employer] B-cell lymphoma BLOOD UREA NITROGEN Routine 03/27/2021 11:30 Follicular low gr maria luz Results for this AM [employer] B-cell lymphoma procedure ar e in the results section. GLUCOSE, RANDOM Routine 03/27/2021 11:30 Follicular low grade Results for this AM [employer] B-cell lymphoma procedure ar e in the results section. PHOSPHORUS LEVEL Routine 03/27/2021 11:30 Follicular low grade Results for this AM [employer] B-cell lymphoma procedure ar e in the results section. CALCIUM LEVEL TOTAL Routine 03/27/2021 11:30 Follicular low gr maria luz Results for this AM [employer] B-cell lymphoma procedure ar e in the results section. ALBUMIN LEVEL Routine 03/27/2021 11:30 Follicular low grade Re sults for this AM [employer] B-cell lymphoma procedure ar e in the results section. TOTAL PROTEIN Routine 03/27/2021 11:30 Follicular low grade Re sults for this AM [employer] B-cell lymphoma procedure ar e in the results section. COMPLETE BLOOD COUNT W/ Routine 03/27/2021 11:30 Follicular lo w grade DIFFERENTIAL AM [employer] B-cell lymphoma after 03/25/[address] Chest Abdomen Pelvis without Contrast Lymphoma (03/11/2022 11:02 AM CDT) Anatomical Region Laterality Modality Chest, Abdomen, Pelvis Computed Tomograp hy Specimen (Source) Anatomical Collection Method Collection Time Re ceived Time Location / / Volume Laterality 03/11/2022 11:34 AM CDT Impressions 03/11/2022 12:38 PM CDT Thorax: 1. Evaluation limited by the lack of I V contrast. 2. Within these limits, no CT evidence of residual or recurrent disease. No change. 3. Stable lucency and sclerosis in T8, suggestive of treated disease. Abdomen and Pelvis: 1. Evaluation limited by the lack of I V contrast. 2. Within these limits, no definite CT evidence of residual or recurrent disease. No change. 3. Slight improvement in previous mild left PC system distention, but the left ureteric stent appears to have migrated inferiorly, and may benefit from repositioning. 4. Stable marked atrophy of the right kidney. [This document was created using a voice recognition transcribing system. Incorrect words or phrases may have been missed during proof reading. 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 Additional information from EMR: Right p elvic, 2018. Left kidney, December 2017. Bone marrow positive, 2017. Indication: Restaging Comparison: Noncontrast CT abdomen pelvi s dated 01/02/2022, noncontrast CT chest abdomen pelvis dated 12/28/2020. Technique: CT chest without IV contras t, CT abdomen and pelvis without IV contrast was obtained. 2-3 mm helical sections following oral contrast only, with coronal and sagittal reformats (rectal contrast was not administered). Findings: THORAX: No definite abnormally enlarged mediasti nal, hilar, or axillary nodes are identified on this noncontrast evaluation. There are stable subcentimeter pulmonary nodules (for example, series 5 image 14, 18, 50, 70, 77), stable back to 05/23/2019, likely benign. No definite new pulmonary nodules or masses are identified. No evidence of pleural effusions. Again seen is lucency and sclerosis in T 8, with minimal loss of vertebral height, evolved over the series back to 07/29/2018, previously hypermetabolic on 12/26/2017, suggestive of treated disease. ABDOMEN and PELVIS: The liver appears unremarkable. No defin ite new focal liver lesions are identified on this noncontrast evaluation. The spleen appears unremarkable on these noncontrast images. No focal splenic lesions or splenomegaly. The pancreas appears unremarkable on these noncontrast images. There are questionable calculi in the gallbladder. No evidence of biliary or pancreatic duct dilatation. The adrenals remain unremarkable. Again seen is a right percutaneous nephr ostomy tube, which appears be functioning satisfactorily, but again seen is quite marked atrophy of the right kidney. There has been minimal improvement in left P C system distention, now amounting to 2. 5 cm in diameter (series 4 image 194), previously 3.1 cm. Again seen is a left ureteric stent, but there has been inferior migration of the stent, now with its bianchi perior pigtail in the upper ureter. A ti ny nonobstructing calculus is again noted in the left kidney (series 4 image 104). Again seen are subcentimeter retroperito pb nodes, with some fatty stranding (series 4 image 195), similar back to 08/05/2018, consistent with treated disease. No abnormally enlarged retrocrural, ante rior diaphragmatic, mesenteric, pelvic, or inguinal nodes are identified. The uterus is not identified, presumably previously resected. No adnexal masses are identified. Degenerative changes are noted at L5/S1. Procedure Note Awilda Day MD - 03/11/2022 Full Result: Examination: CT CHEST ABDOMEN PELVIS WO CONTRAST LYMPHOMA on 03/11/2022 11:02 AM Clinical History: Follicular low grade B -cell lymphoma lymphoma restaging. Additional information from EMR: Right p elvic, 2017. Left kidney, December 2017. Bone marrow positive, 2018. Indication: Restaging Comparison: Noncontrast CT abdomen pelvi s dated 01/02/2022, noncontrast CT chest abdomen pelvis dated 12/28/2020. Technique: CT chest without IV contrast, CT abdomen and pelvis without IV contrast was obtained. 2-3 mm helical sections following oral contrast only, with coronal and sagittal reformats (rectal contrast was not administered). Findings: THORAX: No definite abnormally enlarged mediasti nal, hilar, or axillary nodes are identified on this noncontrast evaluation. There are stable subcentimeter pulmonary nodules (for example, series 5 image 14, 18, 50, 70, 77), stable back to 05/23/2019, likely benign. No definite new pulmonary nodules or masses are identified. No evidence of pleural effusions. Again seen is lucency and sclerosis in T 8, with minimal loss of vertebral height, evolved over the series back to 07/29/2018, previously hypermetabolic on 12/26/2017, suggestive of treated disease. ABDOMEN and PELVIS: The liver appears unremarkable. No defin ite new focal liver lesions are identified on this noncontrast evaluation. The spleen appears unremarkable on these noncontrast images. No focal splenic lesions or splenomegaly. The pancreas appears unremarkable on these noncontrast images. There are questionable calculi in the gallbladder. No evidence of biliary or p ancreatic duct dilatation. The adrenals remain unremarkable. Again seen is a right percutaneous nephr ostomy tube, which appears be functioning satisfactorily, but again seen is quite marked atrophy of the right kidney. There has been minimal improvement in left PC system distention, now amounting to 2.5 cm in d iameter (series 4 image 194), previously 3.1 cm. Again seen is a left ureteric stent, but there has been inferior migration of the stent, now with its superior pigtail in the upper ureter. A tiny nonobstructing calc ulus is again noted in the left kidney (series 4 image 104). Again seen are subcentimeter retroperito pb nodes, with some fatty stranding (series 4 image 195), similar back to 08/05/2018, consistent with treated disease. No abnormally enlarged retrocrural, ante rior diaphragmatic, mesenteric, pelvic, or inguinal nodes are identified. The uterus is not identified, presumably previously resected. No adnexal masses are identified. Degenerative changes are noted at L5/S1. IMPRESSION: Thorax: 1. Evaluation limited by the lack of IV contrast. 2. Within these limits, no CT evidence o f residual or recurrent disease. No change. 3. Stable lucency and sclerosis in T8, s uggestive of treated disease. Abdomen and Pelvis: 1. Evaluation limited by the lack of IV contrast. 2. Within these limits, no definite CT e vidence of residual or recurrent disease. No change. 3. Slight improvement in previous mild l eft PC system distention, but the left ureteric stent appears to have migrated inferiorly, and may benefit from repositioning. 4. Stable marked atrophy of the right ki dney. [This document was created using a voice recognition transcribing system. Incorrect words or phrases may have been missed during proof reading. Please interpret accordingly or contact me for clarification if necessary.] Chloe HILTON IMG CT ORDERABLES CT Neck without Contrast Lymphoma (03/11/2022 11:02 AM CDT) Anatomical Region Laterality Modality Neck Computed Tomography Specimen (Source) Anatomical Collection Method Collection Time Re ceived Time Location / / Volume Laterality 03/12/2022 7:25 AM CDT Impressions 03/12/2022 7:29 AM CDT No significant cervical adenopathy. Narrative 03/12/2022 7:29 AM CDT FULL RESULT: Examination: CT NECK WO CONTRAST LYMPHOM A on 03/11/2022 11:02 AM Clinical History: Follicular low grade B -cell lymphoma Indication: lymphoma restaging Comparison: 10/05/2020. Technique: Axial images were acquired th rough the soft tissues of the neck without intravenous contrast. Findings: There is no significant cervical adenopa thy. No obvious abnormalities within the aero digestive tract. No lesions within the visualized brain o r orbits. The paranasal sinuses are clear. Degenerative changes in the lower cervic al spine. No destructive osseous lesions. Procedure Note Svetlana Martines MD - 03/12/2022 FULL RESULT: Examination: CT NECK WO CONTRAST LYMPHOM A on 03/11/2022 11:02 AM Clinical History: Follicular low grade B -cell lymphoma Indication: lymphoma restaging Comparison: 10/05/2020. Technique: Axial images were acquired th rough the soft tissues of the neck without intravenous contrast. Findings: There is no significant cervical adenopa thy. No obvious abnormalities within the aero digestive tract. No lesions within the visualized brain o r orbits. The paranasal sinuses are clear. Degenerative changes in the lower cervic al spine. No destructive osseous lesions. IMPRESSION: No significant cervical adenopathy. Chloe HILTON IMG CT ORDERABLES (ABNORMAL) .Serum Creatinine (03/11/2022 7:27 AM CDT)Only the most recent of14 resultswithin the time period is included. athologist Signature Creatinine 1.28 (H) 0.51 - 0.95 [facility] mg/dL [facility] Specimen Anatomical Collection Method Collection Time Receive d Time (Source) Location / / Volume Laterality Blood 03/11/2022 7:27 AM 2 7:41 CDT AM CDT Chloe HILTON LAB BLOOD ORDERABLES Performing Organization Address City/State/ZIP Code Phon e Number [facility] CANCER Unless otherwise noted, [place] [address] [place] all lab tests performed by: Division of Pathology and Laboratory Medicine [id number] (ABNORMAL) .CBC (03/11/2022 7:27 AM CDT)Only the most recent of14 resultswithin the time period is included. athologist Signature WBC 6.4 4.0 - 11.0 [place] [facility] RBC 3.04 (L) 4.00 - [place] MD 5.50 M/uL [facility] Hgb 10.8 (L) 12.0 - [place] MD 16.0 gm/dL [facility] Hct 32.5 (L) 37.0 - [place] MD 47.0 % [facility] MCV 107 (H) 82 - 98 fL [facility] MCH 35.5 (H) 27.0 - [place] MD 31.0 pg [facility] MCHC 33.2 31.0 - [place] MD 36.0 gm/dL [facility] RDW-SD 53.4 (H) 35.1 - [place] MD 46.3 fL [facility] RDW-CV 13.5 12.0 - [place] MD 15.5 % [facility] Platelet count 201 140 - 440 [facility] K/[facility] MPV 9.8 4.0 - 10.4 [facility] INRBC 0.0 <=0.0 % [facility] Comment: The INRBC (instrument NRBC) value reflec ts the enumeration of nucleated red blood cells contained i n a 200uL sample of whole blood analyzed by the instrumen t. This value may differ from the NRBC value reported in a manual differential, which is based on a 100 cell differentia l. Specimen Anatomical Collection Method Collection Time Receive d Time (Source) Location / / Volume Laterality Blood 03/11/2022 7:27 AM 7:38 CDT AM CDT Chloe HILTON LAB BLOOD ORDERABLES Performing Organization Address City/State/ZIP Code Phon e Number [facility] CANCER Unless otherwise noted, [place], [place] [id number] [place] [id number] all lab tests performed by: Division of Pathology and Laboratory Medicine [id number] (ABNORMAL) Glomerular Filtration Rate (03/11/2022 7:27 AM CDT)Only the most recent of14 resultswithin the time period is included. athologist [facility] [place] eGFR 47 (L) >=60 [facility] mL/min/1.73 [facility] sq. m Comment: The eGFRcr is calculated with the 2020 KD-EPI creatinine equation using creatinine, patient's age, and sex for adults 18 years of age and older. Other factors, especially muscle mass, may affect accuracy and need to be considered. According to the Kidney Disease: Improvi ng Global Outcomes (KDIGO) CKD Work Group 2012 Clinical Practice Guideline, chronic kidney disease (CKD) is defined as the abnormalities of kidney structure or function, present for more than 3 months, with implications for health. CKD should be c lassified by cause, GFR category, and albuminuria category. KDIGO guidelines provide the following GFR categories Stage Description GFR mL/min/1.73 m2 G1* Normal or high >= 90 G2* Mildly decreased 60-89 G3a Mildly to moderately decreased 45-59 G3b Moderately to severely decreased 30- 44 G4 Severely decreased 15-29 G5 Kidney failure <15 *In the absence of evidence of kidney da mage, neither G1 nor G2 fulfill criteria for CKD. Specimen Anatomical Collection Method Collection Time Receive d Time (Source) Location / / Volume Laterality Blood 03/11/2022 7:27 AM 7:41 CDT AM CDT Chloe HILTON LAB BLOOD ORDERABLES Performing Organization Address City/State/ZIP Code Phon e Number [facility]CER Unless otherwise noted, [address] all lab tests performed by: Division of Pathology and Laboratory Medicine [facility]5 [facility] Fractionated Bilirubin (03/11/2022 7:27 AM CDT)Only the most recent of12 results within the time period is included. athologist Signature Bili Total 0.3 <=1.2 mg/dL [facility] [place] Comment: Indocyanine Green (ICG) may cause falsel y elevated bilirubin results. Total and direct bilirubin must not be measured from samples containing indocyanine green. False elevation of total bilirubin can b e seen in patients with IgG concentrations above 28 g/L. Bili Direct <0.2 <=0.3 mg/dL [place] MD [facility] Comment: Indocyanine Green (ICG) may cau se falsely elevated bilirubin results. Total and direct bilirubin must not be measure d from samples containing indocyanine green. Bili Indirect See Note 0.0 - 0.9 mg/dL [place] MD [facility] Comment: Unable to calculate Indirect Bi lirubin result due to some parameters are outside reportable range Specimen Anatomical Collection Method Collection Time Receive d Time (Source) Location / / Volume Laterality Blood 03/11/2022 7:27 AM 2 7:41 CDT AM CDT Chloe HILTON LAB BLOOD ORDERABLES Performing Organization Address City/State/ZIP Code Phon e Number [facility] Unless otherwise noted, [address] all lab tests performed by: Division of Pathology and Laboratory Medicine [address] [place], [place] [address] (ABNORMAL) Differential (03/11/2022 7:27 AM CDT)Only the most recent of14 resultswithin the time period is included. athologist Signature Neutrophil % 36.0 (L) 42.0 - [facility] 66.0 % [facility] Lymphocyte % 55.5 (H) 24.0 - [facility] 44.0 % [facility] Monocyte % 5.8 2.0 - 7.0 [facility] % [facility] Eosinophil % 1.7 1.0 - 4.0 [facility] % [facility] Basophil % 0.8 0.0 - 1.0 [facility] % [facility] IGRE % 0.2 0.0 - 0.4 [facility] % [facility] Comment: IGRE % count includes Metamyelo cytes, Myelocytes, and Promyelocytes. Neutrophil Abs 2.32 1.70 - 7.30 K/uL [facility] Lymphocyte Abs 3.56 1.00 - 4.80 K/uL [place] MD [facility] Monocyte Abs 0.37 0.08 - 0.70 K/uL IA [facility] Eosinophil Abs 0.11 0.04 - 0.40 K/uL IA [facility] Basophil Abs 0.05 0.00 - 0.10 K/uL IA [facility] IG Abs 0.01 0.00 - 0.04 K/uL [place] [facility] Specimen Anatomical Collection Method Collection Time Receive d Time (Source) Location / / Volume Laterality Blood 03/11/2022 7:27 AM 2 7:38 CDT AM CDT Chloe HILTON LAB BLOOD ORDERABLES Performing Organization Address City/State/ZIP Code Phon e Number [facility] Unless otherwise noted, [address] all lab tests performed by: Division of Pathology and Laboratory Medicine [address] [place] [address] (ABNORMAL) Uric Acid (03/11/2022 7:27 AM CDT)Only the most recent of3 results within the time period is included. P athologist Signature Uric Acid 6.9 (H) 2.4 - 5.7 [facility] mg/dL [facility] Specimen Anatomical Collection Method Collection Time Receive d Time (Source) Location / / Volume Laterality Blood 03/11/2022 7:27 AM 2 7:41 CDT AM CDT Chloe HILTON LAB BLOOD ORDERABLES Performing Organization Address City/[facility] Phon e Number [facility] Unless otherwise noted, [address] all lab tests performed by: Division of Pathology and Laboratory Medicine [address] [place] [address] BUN (03/11/2022 7:27 AM CDT)Only the most recent of14 resultswithin the time period is included. athologist Signature BUN 19 6 - 23 [facility] mg/dL [facility] Specimen Anatomical Collection Method Collection Time Receive d Time (Source) Location / / Volume Laterality Blood 03/11/2022 7:27 AM 2 7:41 CDT AM CDT Chloe HILTON LAB BLOOD ORDERABLES Performing Organization Address City/[facility] Phon e Number [facility] Unless otherwise noted, [address] all lab tests performed by: Division of Pathology and Laboratory Medicine [address] [place] [address] ALT (03/11/2022 7:27 AM CDT)Only the most recent of12 resultswithin the time period is included. P athologist Signature ALT 13 <=33 U/L [facility] Specimen Anatomical Collection Method Collection Time Receive d Time (Source) Location / / Volume Laterality Blood 03/11/2022 7:27 AM 2 7:41 CDT AM CDT Chloe HILTON LAB BLOOD ORDERABLES Performing Organization Address City/[facility] Phon e Number [facility] Unless otherwise noted, [address] all lab tests performed by: Division of Pathology and Laboratory Medicine [address] Aspartate Aminotransferase (03/11/2022 7:27 AM CDT)Only the most recent of12 resultswithin the time period is included. P athologist Signature AST 16 <=32 U/L [facility] Specimen Anatomical Collection Method Collection Time Receive d Time (Source) Location / / Volume Laterality Blood 03/11/2022 7:27 AM 2 7:41 CDT AM CDT Chloe HILTON LAB BLOOD ORDERABLES Performing Organization Address City/[facility]/ZIP [facility] Phon e Number [facility] Unless otherwise noted, [address] all lab tests performed by: Division of Pathology and Laboratory Medicine [address] Total Protein (03/11/2022 7:27 AM CDT)Only the most recent of12 resultswithin the time period is included. P athologist Signature Total Protein 8.0 6.4 - 8.3 [facility] g/dL [facility] Specimen Anatomical Collection Method Collection Time Receive d Time (Source) Location / / Volume Laterality Blood 03/11/2022 7:27 AM 2 7:41 CDT AM CDT Chloe HILTON LAB BLOOD ORDERABLES Performing Organization Address [facility] Phon e Number [facility] Unless otherwise noted, [address] all lab tests performed by: Division of Pathology and Laboratory Medicine [address] Phosphorus Level (03/11/2022 7:27 AM CDT)Only the most recent of10 resultswithin the time period is included. P athologist Signature Phosphorus 3.8 2.5 - 4.5 [facility] mg/dL [facility] Specimen Anatomical Collection Method Collection Time Receive d Time (Source) Location / / Volume Laterality Blood 03/11/2022 7:27 AM 2 7:41 CDT AM CDT Chloe HILTON LAB BLOOD ORDERABLES Performing Organization Address City/[facility] Phon e Number [facility] Unless otherwise noted, [address] all lab tests performed by: Division of Pathology and Laboratory Medicine [address] Alkaline Phosphatase (03/11/2022 7:27 AM CDT)Only the most recent of12 results within the time period is included. P athologist Signature Alk Phos 69 35 - 104 [facility] U/L [facility] Specimen Anatomical Collection Method Collection Time Receive d Time (Source) Location / / Volume Laterality Blood 03/11/2022 7:27 AM 7:41 CDT AM CDT Chloe HILTON LAB BLOOD ORDERABLES Performing Organization Address City/[facility]/ZIP [facility] Phon e Number [facility] Unless otherwise noted, [address] all lab tests performed by: Division of Pathology and Laboratory Medicine [facility]5 [facility] Magnesium Level (03/11/2022 7:27 AM CDT)Only the most recent of10 resultswithin the time period is included. athologist [facility] Magnesium 1.9 1.6 - 2.6 [facility] mg/dL [facility] Specimen Anatomical Collection Method Collection Time Receive d Time (Source) Location / / Volume Laterality Blood 03/11/2022 7:27 AM 7:41 CDT AM CDT Chloe HILTON LAB BLOOD ORDERABLES Performing Organization Address [facility] Phon e Number [facility] Unless otherwise noted, [address] all lab tests performed by: Division of Pathology and Laboratory Medicine [address] LDH (03/11/2022 7:27 AM CDT)Only the most recent of4 resultswithin the time period is included. athologist Signature LDH 171 135 - 214 [facility] U/L [facility] Comment: Results greater than 1651 U/L m ay not be reliable due to matrix effect with extended dilution as it exceeds the manu facturer's recommended limit. Caution should be exercised when interpreting such valu es and done in conjunction with clinical context. Specimen Anatomical Collection Method Collection Time Receive d Time (Source) Location / / Volume Laterality Blood 03/11/2022 7:27 AM 7:41 CDT AM CDT Chloe HILTON LAB BLOOD ORDERABLES Performing Organization Address City/[facility]/ZIP [facility] Phon e Number [facility] Unless otherwise noted, [address] all lab tests performed by: Division of Pathology and Laboratory Medicine [address] (ABNORMAL) Glucose Level (03/11/2022 7:27 AM CDT)Only the most recent of12 resultswithin the time period is included. P athologist Signature Glucose Level 108 (H) 70 - 99 [facility] mg/dL [facility] Comment: Effective 12/14/15, the glucose reference intervals have been updated based on [place] Diabetes [employer] guidelines (Standards of Medical Care in Diabetes 2016. Diabetes Care 2016; 39: S13-S22). Fasting blood glucose: Normal: 70-99 mg/dL Impaired fasting glucose (increased risk for diabetes or pre-diabetes): 100- 125 mg/dL Diabetes mellitus: >/=126 mg/dL Random blood glucose: Normal: 70-199 mg/dL Note: Random glucose >100 mg/dL is assoc iated with increased risk for diabetes Specimen Anatomical Collection Method Collection Time Receive d Time (Source) Location / / Volume Laterality Blood 03/11/2022 7:27 AM 7:41 CDT AM CDT Chloe HILTON LAB BLOOD ORDERABLES Performing Organization Address City/State/ZIP Code Phon e Number [facility] Unless otherwise noted, [address] all lab tests performed by: Division of Pathology and Laboratory Medicine [address] Calcium Level (03/11/2022 7:27 AM CDT)Only the most recent of13 resultswithin the time period is included. P athologist Signature Calcium Lvl 9.3 8.4 - 10.2 [facility] mg/dL [facility] Specimen Anatomical Collection Method Collection Time Receive d Time (Source) Location / / Volume Laterality Blood 03/11/2022 7:27 AM 7:41 CDT AM CDT Chloe HILTON LAB BLOOD ORDERABLES Performing Organization Address City/State/ZIP Code Phon e Number [facility]ER Unless otherwise noted, [address] all lab tests performed by: Division of Pathology and Laboratory Medicine [address] Albumin Level (03/11/2022 7:27 AM CDT)Only the most recent of12 resultswithin the time period is included. athologist Signature Albumin Lvl 4.0 3.5 - 5.2 [facility] gm/dL [facility] Specimen Anatomical Collection Method Collection Time Receive d Time (Source) Location / / Volume Laterality Blood 03/11/2022 7:27 AM 2 7:41 CDT AM CDT Chloe HILTON LAB BLOOD ORDERABLES Performing Organization Address City/[facility] Phon e Number [facility] Unless otherwise noted, [address] all lab tests performed by: Division of Pathology and Laboratory Medicine [address] [place] [address] Electrolyte Panel (03/11/2022 7:27 AM CDT)Only the most recent of13 results within the time period is included. athologist Signature Sodium Lvl 141 136 - 145 [facility] mEq/L [facility] Potassium Lvl 4.2 3.5 - 5.1 [facility] mEq/L [facility] Chloride 105 98 - 107 [facility] mEq/L [facility] CO2 24 22 - 29 [facility] mEqL [facility] Anion Gap 12 4 - 14 [facility] mEq/L [facility] Specimen Anatomical Collection Method Collection Time Receive d Time (Source) Location / / Volume Laterality Blood 03/11/2022 7:27 AM 2 7:41 CDT AM CDT Chloe HILTON LAB BLOOD ORDERABLES Performing Organization Address City/[facility] Phon e Number [facility] Unless otherwise noted, [address] all lab tests performed by: Division of Pathology and Laboratory Medicine [address] [place] [address] [place] Portable Fluoroscopy (01/10/2022 3:23 PM CDT)Only the most recent of3 results within the time period is included. Specimen (Source) Anatomical Location Collection Method / Collectio n Time Received Time / Laterality Volume Narrative Systemgenerated, Documentation - 022 3:23 PM CDT This procedure requires no interpretatio n from the radiologist. Devin Husain III, MD IMG FLUOROSCOPY ORDERABLES COVID-19 (ELMA-CoV-2) PCR Asymptomatic (01/08/2022 9:43 AM CDT)Only the most recent of4 resultswithin the time period is included. Component Value Ref Range Test Analysis Performed Pathologis t Method Time At Signature COVID19 SARS Pre-OR Procedure [place] MD Indication [facility] COVID19 SARS Not Detected Not [place] MD Result Detected [facility] COVID19 SARS SARS-CoV-2 NOT Detected. UT Interpretation [place] Reference Range: Not Detected [facility] Methodology: The [employer] Real Time SARS-CoV-2 assay is a qualitative real-time reverse building supplies salesperson retail polymerase chain reaction (crm marketing executive-PCR) test to detect RNA from SARS-CoV-2 in nasal, nasopharyngeal and oropharyngeal swabs from patients with signs and symptoms of infection who ar e suspected of COVID-19 by their health care provider. The [employer] RealTime SARS-CoV-2 performed on the [employer]000 System is a dual target assay with primers and probes for the RdRp and N genes. Results must be interpreted within the context of all relevant clinical and laboratory findings, and epidemiological risk factors. Positive results are indicative of the presence of SARS-CoV-2 RNA; clinical correlation with patient history and other diagnostic information is ne cessary to determine patient infection status. Positive results do not rule out bacterial infection or co-infection with other viruses. Negative results do not preclude SARS- CoV-2 infection and should not be used as the sole basis for patient management decisions. The [employer] RealTime SARS-CoV -2 assay is for in vitro diagnostic use under FDA Emergency Use Authorization only. Testing is limited to laboratories certified under the Clinical Laboratory Improvement Yazmin ndments of 1988 (CLIA), 42U.S.C. 263a, to perform high complexity tests. The T est was performed by the CLIA-certified, high- complexity Molecular Diagnostics Laboratory (MDL) at [facility] under the Food and Drug Administration (FDA) s Emergency Use Authorization. Factsheet for patients: https://www.[facility].org/AbbottFac tSheetPatients Factsheet for healthcare pro viders: https://www.[facility].org/AbbottFactSheetHCP Test performed by: [facility] Molecular Diagnostic Lab [address] [place] [address] Specimen (Source) Anatomical Collection Method Collection Time Re ceived Time Location / / Volume Laterality Nasopharyngeal Swab 01/08/2022 9:43 01/08 AM CDT 10:39 AM CDT Devin Husain III, MD MICROBIOLOGY - GENERAL ORDER JARRET Performing Organization Address City/[facility] Phon e Number [facility]ER Unless otherwise noted, [address] all lab tests performed by: Division of Pathology and Laboratory Medicine [address] [place] [address] Clot Expiration Date (01/08/2022 9:18 AM CDT)Only the most recent of4 results within the time period is included. [facility] Signature T & S 01/11/2022 [facility] Specimen Anatomical Collection Method Collection Time Receive d Time (Source) Location / / Volume Laterality Blood 01/08/2022 9:18 AM 2 CDT 10:03 AM CDT Devin Husain III, MD BLOOD BANK TEST ORDERABLES Performing Organization Address [facility] Phon e Number [facility]CER Unless otherwise noted, [address] all lab tests performed by: Division of Pathology and Laboratory Medicine [address] [place] [address] TMP Interpretation Antibody Screen Negative (01/08/2022 9:18 AM CDT)Only the most recent of4 resultswithin the time period is included. [facility] TMP Auto Neg At the [facility] patient plasma shows no evidence of RBC alloantibodi es. Comment: MD Chanel WARD [id number] Dictated by: DENNY BLACKWELL MD - 1200 [id number] Dictated Date/Time: 01.08.2022 15:48 PM CDT Transcribed Date/Time: 01.08.2022 15:48 PM CDT Electronically Signed By: MD Chanel VALDOVINOS [id number] on 01.08.2022 15:48 PM Specimen Anatomical Collection Method Collection Time Receive d Time (Source) Location / / Volume Laterality Blood 01/08/2022 9:18 AM 2 CDT 10:03 AM CDT Devin Husain III, MD BLOOD BANK TEST ORDERABLES Performing Organization Address City/[facility]/ZIP Code Phon e Number [facility]CER Unless otherwise noted, [address] all lab tests performed by: Division of Pathology and Laboratory Medicine [address] [place] [address] ABORh (01/08/2022 9:18 AM CDT)Only the most recent of4 resultswithin the time period is included. P athologist Signature ABORh. O POS [facility] Specimen Anatomical Collection Method Collection Time Receive d Time (Source) Location / / Volume Laterality Blood 01/08/2022 9:18 AM 2 CDT 10:03 AM CDT Devin Husain III, MD BLOOD BANK TEST ORDERABLES Performing Organization Address City/[facility] Phon e Number [facility] Unless otherwise noted, [address] all lab tests performed by: Division of Pathology and Laboratory Medicine [address] [place] [address] Antibody Screen (01/08/2022 9:18 AM CDT)Only the most recent of4 resultswithin the time period is included. athologist Signature ABSC. Negative ABSC [facility] Specimen Anatomical Collection Method Collection Time Receive d Time (Source) Location / / Volume Laterality Blood 01/08/2022 9:18 AM 2 CDT 10:03 AM CDT Devin Husain III, MD BLOOD BANK TEST ORDERABLES Performing Organization Address City/[facility] Phon e Number [facility] Unless otherwise noted, [address] all lab tests performed by: Division of Pathology and Laboratory Medicine [address] [place] [address] IR NEPHROSTOMY EXCHANGE (01/05/2022 10:03 AM CDT)Only the most recent of4 resultswithin the time period is included. Anatomical Region Laterality Modality Abdomen/Pelvis Other Specimen (Source) Anatomical Location Collection Method / Collectio n Time Received Time / Laterality Volume Narrative 01/06/2022 7:51 AM CDT Date of Procedure: 01/05/22 Attending Physician: Tc Randolph MD Overhead Distribution Engineer: Murtaza Bass Pre Procedure Diagnosis: Pyelonephriti s [[id number]] Post Procedure Diagnosis: Unchanged Indication: Infection Title of Procedure: Percutaneous Image-Guided Exchange of Ne phrostomy Catheter(s) Operative Findings: Percutaneous image-guided exchange of ri ght nephrostomy catheter(s). Consent: The procedure, risks, indicat ions and alternatives were explained. All questions were answered a nd informed consent was obtained. I have reviewed the history and physical dictated by the mid-level practitioner / fellow. Sedation/Anesthesia: Anesthesia provid ed by Anesthesia Department. Procedure in Detail: A time out was performed prior to the st art of the procedure and the correct patient, procedure, presence of consent, site, and side were confirmed with all members of the team. The patient was placed in a prone positi on on the fluoroscopy table and the catheter(s) and insertion site(s) we re prepped and draped in the usual sterile fashion. Lidocaine 1% was used f or local anesthesia. A food service aide view was obtained of the cathete r. A right nephrostogram confirmed catheter position in the renal pelvis. The catheter was severed and exchanged over a wire for a new 10 F rench Mac-loc catheter. Repeat nephrostogram demonstrates adequate posi tion in the renal pelvis. The catheter was secured to the patient with suture. Additional Comments: None Estimated Blood Loss: Minimal Specimens Removed: No Immediate Complications: None Disposition: PACU Plan: Catheter to gravity drainage. Return for routine exchange in 3 nazia hs. Recommend evaluation with nephrostogr am and possible capping trial following treatment of patient's current infection. I certify my physical presence at the ti me of the procedure. I personally reviewed the image(s) and the resident's / fellow's interpretation and agree with the written report. Feli T Dudley 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 IMG IR ORDERABLES XR Abdomen AP (01/03/2022 11:30 AM CDT)Only the most recent of2 resultswithin the time period is included. Anatomical Region Laterality Modality Abdomen Digital Radiography Specimen (Source) Anatomical Collection Method Collection Time Re ceived Time Location / / Volume Laterality 01/03/2022 11:36 AM CDT Impressions 01/03/2022 11:39 AM CDT There is no conventional radiographic ev idence of bowel obstruction. Narrative 01/03/2022 11:39 AM CDT Examination: XR ABDOMEN AP on 01/03/2022 11:30 AM Clinical History: Pyelonephritis Indication: Nausea / Vomiting Comparison: Portable abdomen dated 2021 Technique: XR ABDOMEN AP Findings: 1 supine and one erect portable radiogra ph of the abdomen and pelvis show contrast material throughout the nondistended colon to the rectum. No distended small bowel loops are seen to suggest bowel obstruction. There is some gas in the stomach. A left ureteral catheter and right percu taneous nephrostomy catheter noted overlying the abdomen and pelvis. Procedure Note Rian Cruz MD - 01/03/2022 Examination: XR ABDOMEN AP on 01/03/2022 11:30 AM Clinical History: Pyelonephritis Indication: Nausea / Vomiting Comparison: Portable abdomen dated 2021 Technique: XR ABDOMEN AP Findings: 1 supine and one erect portable radiogra ph of the abdomen and pelvis show contrast material throughout the nondistended colon to the rectum. No distended small bowel loops are seen to suggest bowel obstruction. There is some gas in the stomach. A left ureteral catheter and right percu taneous nephrostomy catheter noted overlying the abdomen and pelvis. IMPRESSION: There is no conventional radiographic ev idence of bowel obstruction. Feli T Dudley 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 IMG DIAGNOSTIC IMAGING ORDER JARRET (ABNORMAL) Urinalysis with Microscopic (01/02/2022 2:53 AM CDT)Only the most recent of4 resultswithin the time period is included. P athologist Signature UA WBC >182 (H) 0 - 2 /HPF [facility] UA RBC 11 (H) 0 - 2 /HPF [facility] UA Mucous NOT SEEN Not [facility] Seen-Trace [facility] [place] [facility] UA Bacteria NOT SEEN NOT SEEN [facility] UA Squam Epi OCC None-Occas [facility] ional /[facility] UA WBC Clump 1+ (A) NOT SEEN [facility] Specimen (Source) Anatomical Collection Method Collection Time Re ceived Time Location / / Volume Laterality Urine, Nephrostomy 01/02/2022 2:53 2021 2:56 - Right AM CDT AM CDT Narrative [facility] - 2 3:49 AM CDT Some reporting parameters within the Urinalysis test have changed due to the implementation of new in strumentation in the [facility], allowi ng greater sensitivity of measurement. Urinalysis results reported by the [facility] using existing instrumentation, as well as Urinalysis t esting performed manually or by backup methodology at the [facility] will remain relatively unchanged. New reporting parameters and units will now be reported for all campuses. Genesis Gallegos MD URINE ORDERABLES Performing Organization Address City/State/ZIP Code Phon e Number [facility] Unless otherwise noted, [address] all lab tests performed by: Division of Pathology and Laboratory Medicine [address] [place] [address] (ABNORMAL) Urinalysis w/Microscopic if Indicated (01/02/2022 2:53 AM CDT)Only the most recent of4 resultswithin the time period is included. [facility] gist Method Time Signature UA Color Straw Straw-Yel [facility] UA Appear Hazy (A) Clear [facility] UA Glucose NEG NEG mg/dL [facility] UA Bili NEG NEG [facility] UA Ketones NEG NEG mg/dL [facility] UA Spec Grav 1.007 1.003 - [facility] 1.035 [facility] UA Blood Moderate (A) NEG [facility] UA pH 7.0 5.0 - 9.0 [facility] UA Protein 70 (A) NEG mg/dL [facility] UA Urobilinogen NEG NEG [facility] UA Nitrite POS (A) NEG [facility] UA Leuk Est Large (A) NEG [facility] Specimen (Source) Anatomical Collection Method Collection Time Re ceived Time Location / / Volume Laterality Urine, Nephrostomy 01/02/2022 2:53 2021 2:56 - Right AM CDT AM CDT Genesis Gallegos MD URINE ORDERABLES Performing Organization Address City/State/ZIP Code Phon e Number [facility] Unless otherwise noted, [address] all lab tests performed by: Division of Pathology and Laboratory Medicine [address] [place] [address] CT Abdomen Pelvis without Contrast (01/02/2022 1:42 AM CDT) Anatomical Region Laterality Modality Abdomen, Pelvis Computed Tomography Specimen (Source) Anatomical Collection Method Collection Time Re ceived Time Location / / Volume Laterality 01/02/2022 3:57 AM CDT Impressions 01/02/2022 11:48 AM CDT 1. Increased left hydronephrosis, mode rate in volume. The left ureteral stent is in appropriate position and the increasing hydronephrosis is concerning for malfunctioning stent. 2. No right hydronephrosis. Right perc utaneous nephrostomy tube is in appropriate position. 3. No enlarging lymph nodes. I personally reviewed these image(s) denis day with the resident's/fellow's interpretations, certify that if a procedure was performed I was physically present, and agree with the final report. Narrative 01/02/2022 11:48 AM CDT Examination: CT ABDOMEN PELVIS WO XOCHITL RAUSCH, 01/02/2022 1:42 AM Clinical History: Flank pain. Lymphoma. Indication: Flank pain, feeling of kidne y "swollen", history of recurrent UTIs, hydronephrosis, and percutaneous nephrostomy tube Comparison: 06/22/2021 Technique: CT of the abdomen and pelvis was performed without intravenous contrast. Findings: Lung bases: Heart size normal. Lung base s are clear. Liver: No suspicious liver lesions on th is noncontrast CT. Biliary: Gallbladder is normal. No bilia ry dilatation. Pancreas: No ductal dilatation. Adrenal glands: Normal Kidneys: Right kidney is atrophic. A rig ht nephrostomy tube is located within the right extrarenal pelvis is in appropriate position. No right hydronephrosis. A left ureteral stent has the pigtail in th e lower aspect of the left extrarenal pe lvis. There is moderate left hydronephrosis that is increased since the June exam, with the renal pelvis measuring 3.1 cm in transverse dimension, previously 2.4 cm. A linear tract of subcutaneous s oft tissue thickening from prior nephrostomy tube placement is again noted. A punctate calculus is seen within the lower pole left kidney measuring 4 mm. Spleen: Spleen size is normal. Bowel: No bowel obstruction or signs of bowel inflammation. Vasculature: There is mild ectasia of th e infrarenal abdominal aorta is unchanged appearance. Lymph nodes: No enlarging lymph nodes. Peritoneal space: No ascites. Pelvic Organs: The patient status post h ysterectomy. Urinary bladder is within normal limits. No adnexal mass lesions. Musculoskeletal: No osseous destructive changes. Degenerative disc disease is present at L5-S1. Procedure Note Deep Crump MD - 01/02/2022For matting of this note might be different from the original. Examination: CT ABDOMEN PELVIS NANCY RAUSCH, 01/02/2022 1:42 AM Clinical History: Flank pain. Lymphoma. Indication: Flank pain, feeling of kidne y "swollen", history of recurrent UTIs, hydronephrosis, and percutaneous nephrostomy tube Comparison: 06/22/2021 Technique: CT of the abdomen and pelvis was performed without intravenous contrast. Findings: Lung bases: Heart size normal. Lung base s are clear. Liver: No suspicious liver lesions on is noncontrast CT. Biliary: Gallbladder is normal. No bilia ry dilatation. Pancreas: No ductal dilatation. Adrenal glands: Normal Kidneys: Right kidney is atrophic. A rig ht nephrostomy tube is located within the right extrarenal pelvis is in appropriate position. No right hydronephrosis. A left ureteral stent has the pigtail in the lower aspect of the left extrarenal pelvis. There is moderate left hydronephrosis that is increased since the June exam, with the renal pelvis measuring 3.1 cm in transverse dimension, previously 2.4 cm. A linear tract of subcutaneous soft tissue thickening from prior nephrostomy tube placement is again noted. A punctate calculus is seen within the lower pole left kidney measuring 4 mm. Spleen: Spleen size is normal. Bowel: No bowel obstruction or signs of bowel inflammation. Vasculature: There is mild ectasia of th e infrarenal abdominal aorta is unchanged appearance. Lymph nodes: No enlarging lymph nodes. Peritoneal space: No ascites. Pelvic Organs: The patient status post h ysterectomy. Urinary bladder is within normal limits. No adnexal mass lesions. Musculoskeletal: No osseous destructive changes. Degenerative disc disease is present at L5-S1. IMPRESSION: 1. Increased left hydronephrosis, modera te in volume. The left ureteral stent is in appropriate position and the increasing hydronephrosis is concerning for malfunctioning stent. 2. No right hydronephrosis. Right percut aneous nephrostomy tube is in appropriate position. 3. No enlarging lymph nodes. I personally reviewed these image(s) denis day with the resident's/fellow's interpretations, certify that if a procedure was performed I was physically present, and agree with the final report. Genesis Gallegos MD IMG CT ORDERABLES Blood culture (01/01/2022 11:54 PM CDT)Only the most recent of3 resultswithin the time period is included. Component Value Ref Test Analysis Performed At [facility] Method Time Signature Final Report No growth [facility] Path Review - Immunity and antibiotic use may render culture negative. Ongoing infection requires repeat culture. BIANCA PABLO Bottle/Isolat The results have been review ed and electronically signed by Pathologist: ALISIA or IVAN BRAND MD #[id number] [facility] Specimen Anatomical Collection Method Collection Time Receive d Time (Source) Location / / Volume Laterality Blood 01/01/2022 11:54 01/02/2022 1:17 (Venipuncture-Ri PM CDT AM CDT ght) Comment: Arm SD. Narrative [facility] - 6:23 PM CDT If patient has a Central Venous Catheter please draw a blood culture from the line. Short draw may invalidate quantitative b lood culture results. Deanne Sampson MD MICROBIOLOGY - GENERAL ORDER JARRET Performing Organization Address City/State/ZIP Code Phon e Number [facility]CER Unless otherwise noted, [place] [address] [place] all lab tests performed by: Division of Pathology and Laboratory Medicine [address] (ABNORMAL) Urine Culture (01/01/2022 11:54 PM CDT)Only the most recent of6 resultswithin the time period is included. Component Value Ref Test Analysis Performed At [facility] Method Time Signature Final Report 10 - 50,000 cfu/ml Presumptive Pseudomonas aeruginosa BIANCA PABLO ... ALISIA Enterococcus faecalis Unable to quantitate due to overgrowth of Gram Negative Rods [facility] Path Review - The results have been review ed and electronically signed by Pathologist: BIANCA PABLO Urine IVAN BRAND MD #[id number] A [facility]ERSON (A) [facility] Organism Pseudomonas BIANCA PABLO aeruginosa (A) [facility] Specimen (Source) Anatomical Collection Method Collection Time Re ceived Time Location / / Volume Laterality Urine, Nephrostomy 01/01/2022 11:54 01/02 1:10 - Right PM CDT AM CDT Organism Antibiotic Method Susceptibility Pseudomonas Piperacillin/Tazobacta MINIMUM INHIBITORY <=4: S usceptible aeruginosa m CONCENTRATION Pseudomonas Ceftazidime MINIMUM INHIBITORY 4: Susceptibl e aeruginosa CONCENTRATION Pseudomonas Cefepime MINIMUM INHIBITORY 2: Susceptibl e aeruginosa CONCENTRATION Pseudomonas Imipenem MINIMUM INHIBITORY 1: Susceptibl e aeruginosa CONCENTRATION Pseudomonas Meropenem MINIMUM INHIBITORY 0.5: Suscepti ble aeruginosa CONCENTRATION Pseudomonas Amikacin MINIMUM INHIBITORY <=2: Suscepti ble aeruginosa CONCENTRATION Pseudomonas Tobramycin MINIMUM INHIBITORY <=1: Suscepti ble aeruginosa CONCENTRATION Pseudomonas Ciprofloxacin MINIMUM INHIBITORY <=0.25: Susce ptible aeruginosa CONCENTRATION Pseudomonas Levofloxacin MINIMUM INHIBITORY 0.5: Suscepti ble aeruginosa CONCENTRATION Genesis Gallegos MD MICROBIOLOGY - GENERAL ORDER JARRET Performing Organization Address City/[facility] Phon e Number [facility] Unless otherwise noted, [address] all lab tests performed by: Division of Pathology and Laboratory Medicine [address] [place] [address] POC Glucose Screen (01/01/2022 10:01 PM CDT) athologist Signature POC Glucose 96 70 - 99 POC [facility] mg/dL Comment: MD Notified RN Notified Capillary blood samples, e.g. obtained b y fingerstick, may have inaccurate results in patients with decreased peripheral blood flow. Method description: All results are keyonna ured using Electrochemistry test methodology. The glucose in the sample mixes with the reagents on the test strip. The reaction produces an electric current. The amount of current produced is proportion al to the glucose concentration in the blood. PO Sample Type Capillary POC [facility] Performing Lab [facility] POC TELCO R Comment: [facility], [address] [place] [address], [place] [address]; Lab Direct or: Lilo Gates MD Specimen Anatomical Collection Method Collection Time Receive d Time (Source) Location / / Volume Laterality Blood 01/01/2022 10:01 01/01/2022 PM CDT 10:01 PM CDT Genesis Gallegos MD POCT ORDERABLES - DEVICE Performing Organization Address [facility]/ZIP [facility] Phon e Number POC [facility] POC VBG+Lac (01/01/2022 9:33 PM CDT)Only the most recent of2 resultswithin the time period is included. P athologist Signature POC VB pH 7.33 7.31 - 7.41 POC [facility] POC VB pCO2 50 41 - 51 POC [facility] mmHg POC VB pO2 31 mmHg POC [facility] POC VB TCO2 28 24 - 29 POC [facility] mEq/L POC VB Bicarb 27 23 - 28 POC [facility] mmol/L POC VB Base Ex 0 -2 - 3 POC [facility] mmol/L POC VB O2 Sat 53 % POC [facility] POC VB LAC 1.0 0.9 - 1.7 POC [facility] mmol/L Comment: Method description: The i-STAT is an daly lyzer used for in vitro quantification of various analytes in whole blood. The device uses a single disposable cartridge which contains microfabricated sensors, a calibration solution, fluidics system, and a waste chamber. Each test cartridge contains ch emically sensitive biosensors on a silicon chip that are configured to perform specific tests. The microfabricated sensors measure analyte concentration by an electrochemical assay. POC Sample Type Venous POC [facility] POC Clean Dev Yes POC [facility] Performing Lab [facility] POC TELCO R Comment: [facility], [address] [place] [id number]; Lab Direct or: Lilo Gates MD Specimen Anatomical Collection Method Collection Time Receive d Time (Source) Location / / Volume Laterality Blood 01/01/2022 9:33 PM 9:33 CDT PM CDT Genesis Gallegos MD POCT ORDERABLES - DEVICE Performing Organization Address City/State/ZIP Code Phon e Number POC [facility] COVID-19 (SARS-CoV-2)Asymptomatic-LT (01/01/2022 9:31 PM CDT)Only the most recent of2 resultswithin the time period is included. Patholo gist Method Time Signature COVID19 Not Detected Not Detected BIANCA PABLO (SARS-CoV-2) [facility] COVID19 SARS Inpatient [place] MD Indication Admission [facility] Covid 19 See Note [facility] Comment [facility] Comment: The humble SARS-CoV-2 nucleic acid test f or use on the humble Jessica System is a real-time RT-PCR assay intended for the qualitative detection of SARS-CoV-2 (COVID-19) viral RNA in nasopharyngeal swabs from either individuals suspected of COVID-1 9 by their healthcare provider or from any individu al, including individuals without symptoms or other reasons to suspect COVID-19. A fact sheet for patients provided by the hplc chemist ([employer]) can be reviewed at: https://www.Trak.io.gov/media/333429/domenic griffin A fact sheet for Health Care providers is provided by the hplc chemist ([employer]) and can be reviewed at: https://www.fda.gov/media/720955/download Results must be interpreted within the c ontext of all relevant clinical and laboratory findings and should not form the sole basis for a diagnosis or treatment decision. Positive results do not rule out bacterial infection or co- infection with other viruses. Negative results do not preclud e SARS-CoV-2 infection and must be combined with clinical observations, patient history, and/or epidemiological information. This assay has been authorized by the [facility] for use only under Emergency Use Authorization (EUA) in laboratories that have been CLIA-certified to perform moderate-complexity and high-complexity tests. The Microbiology Laboratory at [facility], CLIA Accreditation #[id number] a [place] CAP Accreditation #[id number], verified the performance characteristics of this assay. Internal controls are used to monitor all stages of the test process. Specimen (Source) Anatomical Collection Method Collection Time Re ceived Time Location / / Volume Laterality Nasopharyngeal Swab 01/01/2022 9:31 01/01 PM CDT 9:38 PM CDT Deanne Sampson MD MICROBIOLOGY - GENERAL ORDER JARRET Performing Organization Address City/State/ZIP Code Phon e Number [facility] Unless otherwise noted, [place], [place] [id number] [place] [address] all lab tests performed by: Division of Pathology and Laboratory Medicine [facility] Procalcitonin (01/01/2022 9:31 PM CDT)Only the most recent of2 resultswithin the time period is included. athologist Signature Procalcitonin <0.04 <=0.08 [facility] ng/mL [facility] Comment: Procalcitonin > 2.00 ng/mL: Procalcit onin levels above 2.00 ng/mL are highly suggestive of a high risk for systematic bacterial infection/ severe sepsis and/or septic shock. Procalcitonin < 0.50 ng/mL: Procalcito kimberli levels below 0.50 ng/mL are at low risk for progression to severe sepsis and/ or septic shock. Procalcitonin (ProCT) between 0.15 and 2 .0 ng/mL do not exclude infection, because localized infections (without systemic signs) may be associated with such low levels. Results greater than 400 ng/mL may not b e reliable due to the matrix effect with extended dilution as it exceeds the hplc chemist's recommended limit. Caution should be exercised when interpreting such values and done in conjunction with clinical context. Specimen Anatomical Collection Method Collection Time Receive d Time (Source) Location / / Volume Laterality Blood 01/01/2022 9:31 PM 2 9:54 CDT PM CDT Deanne Sampson MD LAB BLOOD ORDERABLES Performing Organization Address [facility] Phon e Number [facility] Unless otherwise noted, [address] all lab tests performed by: Division of Pathology and Laboratory Medicine [facility] (01/01/2022 9:31 PM CDT) athologist Signature CRP 5.25 mg/L [facility] Comment: Reference ranges for HS CRP assay are as follows: Reference ranges when used to assess car diac risk: <1.00 mg/L Low cardiovascular risk 1.00-3.00 mg/L Average cardiovascular risk >3.00 mg/L High cardiovascular risk. Reference ranges when used to assess inf lammatory responses: Less than or equal to 10.00 mg/L. Specimen Anatomical Collection Method Collection Time Receive d Time (Source) Location / / Volume Laterality Blood 01/01/2022 9:31 PM 2 9:54 CDT PM CDT Deanne Sampson MD LAB BLOOD ORDERABLES Performing Organization Address [facility] Phon e Number [facility] Unless otherwise noted, [address] all lab tests performed by: Division of Pathology and Laboratory Medicine [address] [place], [place] [address]d Lipase (01/01/2022 9:31 PM CDT) athologist Signature Lipase Lvl 43 13 - 60 U/L [facility] Specimen Anatomical Collection Method Collection Time Receive d Time (Source) Location / / Volume Laterality Blood 01/01/2022 9:31 PM 2 9:54 CDT PM CDT Deanne Sampson MD LAB BLOOD ORDERABLES Performing Organization Address City/State/ZIP Code Phon e Number [facility] Unless otherwise noted, [address] all lab tests performed by: Division of Pathology and Laboratory Medicine [address] [place] [address] (ABNORMAL) Amylase Level (01/01/2022 9:31 PM CDT) athologist Signature Amylase Lvl 137 (H) 28 - 100 [facility] U/L [facility] Specimen Anatomical Collection Method Collection Time Receive d Time (Source) Location / / Volume Laterality Blood 01/01/2022 9:31 PM 2 9:54 CDT PM CDT Deanne Sampson MD LAB BLOOD ORDERABLES Performing Organization Address City/State/ZIP Code Phon e Number [facility] Unless otherwise noted, [address] all lab tests performed by: Division of Pathology and Laboratory Medicine [address] [place] [address] COVID-19 (SARS-CoV-2) PCR-Asymptomatic [facility] (10/25/2021 10:07 AM CDT)Only the most recent of2 resultswithin the time period is included. [employer] Method Time Signature COVID19 (SARS Not Detected Not Detected [facility] CoV-2) [facility] Comment: This test is a qualitative reverse-trans criptase polymerase chain reaction (RT- PCR) developed for the Jolie HUMBLE 6800 system and intended for qualitative detection of SARS CoV-2 RNA in nasopharyngeal a nd oropharyngeal swab specimens collecte d from any individuals, including those suspected o f COVID-19 by their healthcare provider, and those without symptoms or other reasons to suspect COVID-19. A fact sheet for patients provided by the hplc chemist ( [employer]) can be rev iewed at: https://www.fda.gov/media/586615/domenic griffin A fact sheet for Health Care providers is provided by the hplc chemist ([employer]) and can be reviewed at: https://www.fda.gov/media/828746/download Results must be interpreted within the c ontext of all relevant clinical and laboratory findings and should not form the sole basis for a diagnosis or treatment decision. Positive results do not rule out bacterial infection or co- infection with other viruses. Negative results do not rule ou t SARS-CoV-2 and must be combined with clinical observations, patient history, and/or epidemiological information. "Presumptive Positive" results are due t o partial amplification of SARS-CoV-2 targets and indicates low amounts of virus present in the specimen at or near the limit of detection. Regardless, individuals with "Presumptive Positive" results should be managed per institutional guidelines as individuals positive for SARS-CoV-2 virus, including use of appropriate infection control protocols. Internal controls are included to assess for possible amplification inhibitors. If inhibition is detected, testing is repeated and if inhibition is confirmed the specimen is resulted as "Invalid". When an "Invalid" result occurs, it is recomm ended to wait 3 days before submitting a new spec imen for testing if clinically indicated. This assay has been approved by the FDA for use only under Emergency Use Authorization (EUA) in laboratories that have been CLIA-certified to perform moderate-complexity and high-complexity tests. The performance characteristics of this assay were verified by the Microbiology Laboratory at [facility], CLIA Accreditation #: [id number] and CAP Accreditation #: [id number]. COVID19 SARS Source 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 Swab [place] MD [facility] COVID19 SARS Indication Pre-Out of OR Procedure [facility] Specimen (Source) Anatomical Collection Method Collection Time Re ceived Time Location / / Volume Laterality Nasopharyngeal Swab 10/25/2021 10:07 06/0 12/2021 AM CDT 3:57 PM CDT Tc [facility] MICROBIOLOGY - GENERAL ORDER JARRET Performing Organization Address City/State/ZIP Code Phon e Number [facility] CANCER Unless otherwise noted, [place] [address] [place] all lab tests performed by: Division of Pathology and Laboratory Medicine [address] (ABNORMAL) GUA Microscopic (10/02/2021 8:46 AM CDT)Only the most recent of2 resultswithin the time period is included. P athologist Signature UA RBC 7 (H) 0 - 2 /HPF [facility] UA WBC >182 (H) 0 - 2 /HPF [facility] CENTER UA Mucous NOT SEEN Not [facility] Seen-Trace [facility] [place] [facility] UA Bacteria 3+ (A) NOT SEEN [facility] UA Squam Epi OCC None-Occas [facility] ional /[facility] UA WBC Clump 4+ (A) NOT SEEN [facility] Specimen Anatomical Collection Method Collection Time Receive d Time (Source) Location / / Volume Laterality Urine 10/02/2021 8:46 AM 2 9:27 CDT AM CDT Narrative [facility] - 2 10:17 AM CDT Some reporting parameters within the Urinalysis test have changed due to the implementation of new in strumentation in the [facility], allowi ng greater sensitivity of measurement. Urinalysis results reported by the [facility] using existing instrumentation, as well as Urinalysis t esting performed manually or by backup methodology at the [facility] will remain relatively unchanged. New reporting parameters and units will now be reported for all campuses. Devin Husain III, MD LAB BLOOD ORDERABLES Performing Organization Address City/State/ZIP Code Phon e Number [facility] CANCER Unless otherwise noted, [place] [address] [place] all lab tests performed by: Division of Pathology and Laboratory Medicine [facility]5 [facility] (ABNORMAL) G Urinalysis (10/02/2021 8:46 AM CDT)Only the most recent of2 results within the time period is included. Patholo gist Method Time Signature UA Color Yellow Straw[facility]Yel [facility] UA Appear Cloudy (A) Clear [facility] UA Glucose NEG NEG mg/dL [facility] UA Bili NEG NEG [facility] UA Ketones NEG NEG mg/dL [facility] UA Spec Grav 1.007 1.003 - [facility] 1.035 [facility] UA Blood Moderate (A) NEG [facility] UA pH 6.5 5.0 - 9.0 [facility] UA Protein 100 (A) NEG mg/dL [facility] UA Urobilinogen NEG NEG [facility] UA Nitrite POS (A) NEG [facility] UA Leuk Est Large (A) NEG [facility] UA Comment See Comment [facility] Comment: Many WBC clumps seen in additio n to individual WBCs Specimen Anatomical Collection Method Collection Time Receive d Time (Source) Location / / Volume Laterality Urine 10/02/2021 8:46 AM 2 9:26 CDT AM CDT Devin Husain III, MD URINE ORDERABLES Performing Organization Address City/State/ZIP Code Phon e Number [facility] CANCER Unless otherwise noted, [address] all lab tests performed by: Division of Pathology and Laboratory Medicine [address] [place] [address] [place] Hemoglobin A1c (10/02/2021 8:41 AM CDT) athologist Signature A1C 4.9 4.3 - 5.6 % [facility] Comment: HbA1c values >=6.5% are diagnostic of di abetes mellitus. Diagnosis should be confirmed by repeat testing. Therapeutic Action suggested: >8.0% HbA1 c; Goal of therapy: <7.0% HbA1c Specimen Anatomical Collection Method Collection Time Receive d Time (Source) Location / / Volume Laterality Blood 10/02/2021 8:41 AM 2 9:45 CDT AM CDT Devin Husain III, MD LAB BLOOD ORDERABLES Performing Organization Address City/State/ZIP Code Phon e Number [facility] CANCER Unless otherwise noted, [address] all lab tests performed by: Division of Pathology and Laboratory Medicine [address] [place] [address] [place] US Arm Venous Doppler Left (06/23/2021 2:00 PM [employer]) Anatomical Region Laterality Modality Arm, Extremity Ultrasound Specimen (Source) Anatomical Collection Method Collection Time Re ceived Time Location / / Volume Laterality 06/23/2021 2:01 PM [employer] Impressions 06/23/2021 2:12 PM [employer] Negative for deep venous thrombosis in t he left upper extremity. Narrative 06/23/2021 2:12 PM [employer] FULL RESULT: Examination: US ARM VENOUS DOPPLER LEFT, 06/23/2021 2:00 PM Clinical History: Right flank pain Indication: Arm/Neck Swelling Comparison: None available. Technique: Grayscale and color/spectral Doppler ultrasound of the left upper extremity veins was performed. Findings: The left internal jugular, subclavian, a xillary, brachial, cephalic, and basilic veins show phasic color flow and are patent. Procedure Note Cali Torres MD - 06/23/2021Forma tting of this note might be different from the original. FULL RESULT: Examination: US ARM VENOUS DOPPLER LEFT, 06/23/2021 2:00 PM Clinical History: Right flank pain Indication: Arm/Neck Swelling Comparison: None available. Technique: Grayscale and color/spectral Doppler ultrasound of the left upper extremity veins was performed. Findings: The left internal jugular, subclavian, a xillary, brachial, cephalic, and basilic veins show phasic color flow and are patent. IMPRESSION: Negative for deep venous thrombosis in t he left upper extremity. Zoe HILTON IMG US ORDERABLES CT Abdomen Pelvis with Contrast (06/22/2021 6:44 PM [employer]) Anatomical Region Laterality Modality Abdomen, Pelvis Computed Tomography Specimen (Source) Anatomical Collection Method Collection Time Re ceived Time Location / / Volume Laterality 06/22/2021 7:20 PM [employer] Impressions 06/22/2021 7:43 PM [employer] 1. Mild to moderate new left hydronephrosis. 2. Right percutaneous nephrostomy cathet er. The loop of the percutaneous catheter has moved to the renal pelvis. There is no right hydronephrosis. 3. The right ureteral stent has been rem reny. 4. The ureteral stent in the left kidney is now in the distal ureteral pelvic junction. The findings were referred to the orderi ng service at time of the dictation. Narrative 06/22/2021 7:43 PM [employer] FULL RESULT: Examination: CT ABDOMEN PELVIS W CONTRAS T, 06/22/2021 6:44 PM Clinical History: Right flank pain Indication: flank pain Comparison: December 28, 2020 Technique: CT of the abdomen and pelvis was performed with intravenous contrast. Findings: At the lung bases there is no pneumonia or pleural effusion. There is no suspicious pulmonary nodule. There is no right hydronephrosis. The right kidney is atrophic. There is a percutaneous right nephrostom y catheter: On today's study the loop of the percuta neous nephrostomy catheter is in the renal pelvis. This is seen on series 8 image 64.On the prior study and the loop was in the lower pole of the right kidney. There was a right ureteral stent. This h as been removed. There is stable mild skin thickening denis ng the right percutaneous nephrostomy tract with no fluid collection to suggest an abscess. There is new [id number] left hydro nephrosis. The loops of the left ureteral stent has moved to the distal ureteral pelvic junction. This is seen on series 8 image 56. The distal loop of the ureteral stent remains in the bladder. On the prior study of the loop of the ureteral stent was l ocated in the proximal renal pelvis. Again noted is a tract for a prior percu taneous nephrostomy in the subcutaneous fat in the left flank region. This can be seen on series 6 image 52-53. There is no liver mass. There is no adre nal mass. There is no pancreatic mass. The gallbladder is underdistended. There is no enlarged lymph node in the abdomen. There is no bowel obstruction. In the pelvis, there is no rectal contra st. There is new small amount of free fluid. This is seen on series 9 image 117. The bladder is underdistended. There are post hysterectomy changes. 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 Procedure Note Alysia Kebede MD - 06/22/2021Formatti ng of this note might be different from the original. FULL RESULT: Examination: CT ABDOMEN PELVIS W CONTRAS T, 06/22/2021 6:44 PM Clinical History: Right flank pain Indication: flank pain Comparison: December 28, 2020 Technique: CT of the abdomen and pelvis was performed with intravenous contrast. Findings: At the lung bases there is no pneumonia or pleural effusion. There is no suspicious pulmonary nodule. There is no right hydronephrosis. The right kidney is atrophic. There is a percutaneous right nephrostom y catheter: On today's study the loop of the percuta neous nephrostomy catheter is in the renal pelvis. This is seen on series 8 image 64.On the prior study and the loop was in the lower pole of the right kidney. There was a right ureteral stent. This h as been removed. There is stable mild skin thickening denis ng the right percutaneous nephrostomy tract with no fluid collection to suggest an abscess. There is new [id number]-[id number] left hydro nephrosis. The loops of the left ureteral stent has moved to the distal ureteral pelvic junction. This is seen on series 8 image 56. The distal loop of the ureteral stent remains in the bladder. On the prior study of the loop of the ureteral stent was located in the pr oximal renal pelvis. Again noted is a tract for a prior percu taneous nephrostomy in the subcutaneous fat in the left flank region. This can be seen on series 6 image 52-53. There is no liver mass. There is no adre nal mass. There is no pancreatic mass. The gallbladder is underdistended. There is no enlarged lymph node in the abdomen. There is no bowel obstruction. In the pelvis, there is no rectal contra st. There is new small amount of free fluid. This is seen on series 9 image 117. The bladder is underdistended. There are post hysterectomy changes. 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 IMPRESSION: 1. Mild to moderate new left hydronephro sis. 2. Right percutaneous nephrostomy cathet er. The loop of the percutaneous catheter has moved to the renal pelvis. There is no right hydronephrosis. 3. The right ureteral stent has been rem reny. 4. The ureteral stent in the left kidney is now in the distal ureteral pelvic junction. The findings were referred to the orderi ng service at time of the dictation. Osei Day MD IMJose CT ORDERABLES X-ray Chest 1 View (06/21/2021 6:22 PM [employer]) Anatomical Region Laterality Modality Chest Digital Radiography Specimen (Source) Anatomical Collection Method Collection Time Re ceived Time Location / / Volume Laterality 06/21/2021 7:31 PM [employer] Impressions 06/21/2021 7:33 PM [employer] Intact chest with no consolidations or lobar pneumonia and no significant change comparing current study to December 28, 2020. Narrative 06/21/2021 7:33 PM [employer] FULL RESULT: Examination: XR CHEST 1 VW, 06/21/2021 6:2 2 PM Clinical History: Follicular lymphoma Indication: Shortness of Breath, COVID-1 9 Not Suspected Comparison: CT chest and topogram chest December 28, 2020 Technique: Anteroposterior radiograph of the chest. Findings: The lungs are clear. There is no pleural effusion or pneumothorax. There is no mediastinal or hilar adenopathy. Cardiac silhouette is normal. Procedure Note Osei Morrison MD - 06/21/2021Formattin g of this note might be different from the original. FULL RESULT: Examination: XR CHEST 1 VW, 06/21/2021 6:2 2 PM Clinical History: Follicular lymphoma Indication: Shortness of Breath, COVID-1 9 Not Suspected Comparison: CT chest and topogram chest December 28, 2020 Technique: Anteroposterior radiograph of the chest. Findings: The lungs are clear. There is no pleural effusion or pneumothorax. There is no mediastinal or hilar adenopathy. Cardiac silhouette is normal. IMPRESSION: Intact chest with no consolidations or l obar pneumonia and no significant change comparing current study to December 28, 2020. Osei Day MD IMG DIAGNOSTIC IMAGING ORDER JARRET aPTT (06/21/2021 5:12 PM [employer]) athologist Signature aPTT 35.1 24.7 - 36.8 [facility] Specimen Anatomical Collection Method Collection Time Receive d Time (Source) Location / / Volume Laterality Blood 06/21/2021 5:12 PM 5:59 [employer] PM [employer] Osei Day MD LAB BLOOD ORDERABLES Performing Organization Address City/State/ZIP Code Phon e Number [facility] CANCER Unless otherwise noted, [address] all lab tests performed by: Division of Pathology and Laboratory Medicine [address] [place] [address] (ABNORMAL) Prothrombin Time with INR (06/21/2021 5:12 PM [employer])Only the most recent of2 resultswithin the time period is included. P athologist Signature PT 14.0 (H) 11.5 - 13.9 [facility] INR 1.17 (H) 0.90 - 1.10 [facility] Specimen Anatomical Collection Method Collection Time Receive d Time (Source) Location / / Volume Laterality Blood 06/21/2021 5:12 PM 5:59 [employer] PM [employer] Osei Day MD LAB BLOOD ORDERABLES Performing Organization Address City/State/ZIP Code Phon e Number [facility] CANCER Unless otherwise noted, [address] all lab tests performed by: Division of Pathology and Laboratory Medicine [address] [place] Glucose, Random (04/27/2021 10:31 AM [employer])Only the most recent of2 resultswithin the time period is included. athologist Signature Glucose Random 86 70 - 199 [facility] mg/dL [facility] Comment: Effective 12/14/15, the glucose reference intervals have been updated based on [place] [employer] guidelines (Standards of Medical Care in Diabetes 2016. Diabetes Care 2016; 39: S13-S22). Fasting blood glucose: Normal: 70-99 mg/dL Impaired fasting glucose (increased risk for diabetes or pre-diabetes): 100- 125 mg/dL Diabetes mellitus: >/=126 mg/dL Random blood glucose: Normal: 70-199 mg/dL Note: Random glucose >100 mg/dL is assoc iated with increased risk for diabetes Specimen Anatomical Collection Method Collection Time Receive d Time (Source) Location / / Volume Laterality Blood 04/27/2021 10:31 04/27/2021 AM [employer] 11:23 AM [employer] Mihaela HILTON LAB BLOOD ORDERABLES Performing Organization Address City/State/ZIP Code Phon e Number [facility] DIAGNOSTIC Unless otherwise noted, [place] [phone] [place] all lab tests performed by: Division of Pathology and Laboratory Medicine [address] [place] Anion Gap (04/27/2021 10:31 AM [employer]) athologist Signature Anion Gap 10 4 - 14 [facility] mEq/L [facility] Specimen Anatomical Collection Method Collection Time Receive d Time (Source) Location / / Volume Laterality Blood 04/27/2021 10:31 04/27/2021 AM [employer] 11:23 AM [employer] Mihaela HILTON LAB BLOOD ORDERABLES Performing Organization Address City/State/ZIP [facility] Phon e Number [facility] DIAGNOSTIC Unless otherwise noted, [place] [phone] [place] all lab tests performed by: Division of Pathology and Laboratory Medicine [address] [place] Sodium Level (04/27/2021 10:31 AM [employer]) athologist Signature Sodium Lvl 143 136 - 145 [facility] mEq/L [facility] Specimen Anatomical Collection Method Collection Time Receive d Time (Source) Location / / Volume Laterality Blood 04/27/2021 10:31 04/27/2021 AM [employer] 11:23 AM [employer] Mihaela Vazung PA LAB BLOOD ORDERABLES Performing Organization Address [facility] Phon e Number [facility] DIAGNOSTIC Unless otherwise noted, [address] all lab tests performed by: Division of Pathology and Laboratory Medicine [address] [place] Potassium (04/27/2021 10:31 AM [employer]) P athologist Signature Potassium Lvl 4.6 3.5 - 5.1 [facility] mEq/L [facility] Specimen Anatomical Collection Method Collection Time Receive d Time (Source) Location / / Volume Laterality Blood 04/27/2021 10:31 04/27/2021 AM [employer] 11:23 AM [employer] Mihaela Perez PA LAB BLOOD ORDERABLES Performing Organization Address [facility] Code Phon e Number [facility] DIAGNOSTIC Unless otherwise noted, [address] all lab tests performed by: Division of Pathology and Laboratory Medicine [address] [place] Chloride Level (04/27/2021 10:31 AM [employer]) athologist Signature Chloride 105 98 - 107 [facility] mEq/L [facility] Specimen Anatomical Collection Method Collection Time Receive d Time (Source) Location / / Volume Laterality Blood 04/27/2021 10:31 04/27/2021 AM [employer] 11:23 AM [employer] Mihaela Perez PA LAB BLOOD ORDERABLES Performing Organization Address City/[facility]/ZIP [facility] Phon e Number [facility] DIAGNOSTIC Unless otherwise noted, [place] [phone] [place] all lab tests performed by: Division of Pathology and Laboratory Medicine [address] [place] Carbon Dioxide Level (04/27/2021 10:31 AM [employer]) P athologist Signature CO2 28 22 - 29 [facility] mEq/L [facility] CENTER Specimen Anatomical Collection Method Collection Time Receive d Time (Source) Location / / Volume Laterality Blood 04/27/2021 10:31 04/27/2021 AM [employer] 11:23 AM [employer] Mihaela Perez PA LAB BLOOD ORDERABLES Performing Organization Address City/[facility] Phon e Number [facility] Unless otherwise noted, [address] all lab tests performed by: Division of Pathology and Laboratory Medicine [address] [place] after 03/25/2021 Insurance Payer Benefit Plan Subscriber ID Effective Dates Phone Address Type / Group JANETTE SAVAGE [id number] 2001-11/16/ [address] r[id number] [place] [address] [address] (Home) [place], [place] [phone] (Work) Jaqueline Fuentes Personal/Family Self 1960 [address] (Home) [place] [address] Jaqueline Feuntes Personal/Family Self 1960 [address] (Home) [place] [address] Advance Directives Code Status Date Activated Date Inactivated Comments Full Code 01/02/2022 6:05 AM 01/06/2022 3:41 PM Code Status Date Activated Date Inactivated Comments Full Code 06/22/2021 4:04 AM 06/23/2021 8:40 PM Full Code 12/28/2020 6:06 AM 12/31/2020 4:16 PM Full Code 08/25/2020 11:10 PM 08/27/2020 7:57 PM Full Code 05/04/2020 1:37 PM 05/04/2020 5:37 PM Care Teams Mandarin Teacher Relationship Specialty Start Date End Date Dusty Alvarez MD PCP - General Lymphoma and Myeloma 12/25/17 [address] [place] [address]
--- OUTSIDE RECORDS SUMMARY | 2022-03-25 12:40 | XMS REPORT | Continuity of Care Document ---
:1960 Author Organization [facility] t Address [address] [place] [address] Care Team Providers Name Role Phone [phone] Primary Care Physician Unavailable SHERIF HUSAIN III Attending Clinician Unavailable JAS ARMSTRONG Attending Clinician Unavailable Katrin Ayala MD Attending Clinician [phone] KATRIN AYALA Attending Clinician Unavailable Miguel Ángel PABLO, Annemarie O Attending Clinician Volodymyr Frias MD Attending Clinician VOLODYMYR FRIAS Attending Clinician Unavailable Nora PABLO, Don Attending Clinician DWAYNE LIU Attending Clinician Unavailable Dwayne Zamorano Attending Clinician [place] APN Attending Clinician Kayleen Rendon Attending Clinician KAYLEEN PACE Attending Clinician Unavailable Ibrahima HOLCOMB, Colleen Ortiz Attending Clinician Rodrigue PABLO, Sherif Garcia Attending Clinician Yaya PABLO, Kourtney Cook Attending Clinician Yenny PABLO, Brie Attending Clinician Simba MANAGER OF [employer]PORATE, Deneen Francis Attending Clinician Dario VILLALPANDO, Lucy Tang Attending Clinician [phone] MAURICIO ALEXIS Attending Clinician Unavailable El PABLO, Genesis Francis Attending Clinician Joshua PABLO, Giorgi Attending Clinician Reuben PABLO, Mauricio Attending Clinician DUDLEY, FELI T Attending Clinician Unavailable Donato PABLO, Summer Ayala Attending Clinician Valencia RANKIN, Mally Attending Clinician Octavia MANAGER OF [employer]ATE, Feli T Attending Clinician Brittany PT, Funmi Attending Clinician Keith HILTON, Tc Ford Attending Clinician Rolando RANKIN, Medina Attending Clinician Nii PABLO, Letty Attending Clinician Lulu Roy MD Attending Clinician Keven VILLALPANDO, Angela Attending Clinician Juventino VILLALPANDO, Alexandra Cook Attending Clinician Unavailable Alicia HILTON, Ariana Cook Attending Clinician Jaime Gill MD Attending Clinician Sherif JOSEPH, Lynnette Attending Clinician Sandro VILLALPANDO, Erasto Haines Attending Clinician Unavailable COLLEEN MENDEZ Attending Clinician Unavailable Janice PABLO, Lillian Estrada Attending Clinician Syed Pinon CRNA Attending Clinician Dileep Rainey MD Attending Clinician Cristin Valerio Attending Clinician Svetlana Avendaño Attending Clinician Ilir Hough MA Attending Clinician Unavailable SVETLANA FAROOQ Attending Clinician Unavailable Greg Maldonado Attending Clinician Christelle Salvador MA Attending Clinician Unavailable Saurabh VILLALPANDO, Angelika Salinas Attending Clinician Unavailable Kaykay Styles RN Attending Clinician Unavailable SYED CAVAZOS Attending Clinician Unavailable Gabe PABLO, Herminio Attending Clinician Bubba Mckeon MD Attending Clinician Dirk PABLO, Seyd Attending Clinician Papa Garcia Attending Clinician Unavailable Roxanne Andrea CRNA Attending Clinician Irving Dolan MD Attending Clinician Amelia HILTON, Brigette Attending Clinician ALMA SOLO Attending Clinician Unavailable Alma Diaz Attending Clinician Param Mc RN Attending Clinician CHRIS VAZQUEZ Attending Clinician Unavailable Chris Vazquez MD Attending Clinician HERMINIO GARZA Attending Clinician Unavailable Herminio London Attending Clinician NABIL VILLA Attending Clinician Unavailable DEANNE ROJAS Attending Clinician Unavailable LOBO UGARTE Attending Clinician Unavailable WHITNEY FAROOQ Attending Clinician Unavailable OLEKSANDR NELSON Attending Clinician Unavailable LULU ROY Attending Clinician Unavailable VERO PATINO Attending Clinician Unavailable ESTELLE CAMPA Attending Clinician Unavailable TESFAYE DICKENS Attending Clinician Unavailable DOUG STINSON Attending Clinician Unavailable JOANIE DIAMOND Attending Clinician Unavailable DIMITRI FAROOQ Attending Clinician Unavailable BRIGITTE BAI Attending Clinician Unavailable GREG TYSON Attending Clinician Unavailable JOANNA SMITH Attending Clinician Unavailable IRVING SORIANO M.D. Attending Clinician Unavailable Parmjit Serrano M.D. Attending Clinician Unavailable SHERIF HUASIN III Admitting Clinician Unavailable MAURICIO ALEXIS Admitting Clinician Unavailable HERMINIO BERNAL Admitting Clinician Unavailable NABIL VILLA Admitting Clinician Unavailable OLEKSANDR NELSON Admitting Clinician Unavailable GHISLAINE DESAI Admitting Clinician Unavailable Payers Payer Name Policy Type Policy Number Effective Date Expiration Date Bettie SAVAGE [id number] 2000 00:00:00 2024 00:00 :00 Problems Condition Condition Condition Status Onset Resolution Last Treating Co mments Source Name Details Category Date Date Treatment Clinician Date Hydronephr Hydronephr Disease Active 2019-05 Overview : Univers osis with osis with - Formattin i ty of ureteral ureteral 00:00: g of this [place]ene[place] as stricture stricture 00 note MD might be Stella olivas n from the [facility] original. Center Added automatic ally from request for surgery [id number] Generalize Generalize Disease Active 2019-05 U nivers d headache d headache 0-27 it y of 00:00: [place] 00 MD [facility] Adjustment Adjustment Disease Active 2019-05 U nivers disorder disorder 0-27 ity of with with 00:00: [place] depressed depressed 00 mood mood Stella haskins [facility] Vaginal Vaginal Disease Active 2020- Univers bleeding bleeding 5-25 ity of problem problem 00:00: [place] 00 MD [facility] Extrinsic Extrinsic Disease Active 2020 Uni vers ureteral ureteral 2-25 [place] [facility] Anemia of Anemia of Disease Recurre Un cindi chronic chronic nce 2-02 ity of disease disease 00:00: [place] 00 MD [facility] Chronic Chronic Disease Active 2020-0 Univers pain pain 2-02 ity of 00:00: [place] 00 MD [facility] Neck pain Neck pain Disease Active 2020-0 Uni vers 1-09 ity of 00:00: [place] 00 MD [facility] Dyspnea Dyspnea Disease Active 2020-0 Univers 1-09 ity of 00:00: [place] 00 MD [facility] Other Other Disease Active 2020-0 Univers mechanical mechanical 1-05 it y of complic[place] complicati [place] of 00 nephrostom nephrostom An derso y catheter y catheter n [facility] Cough Cough Disease Active 2020-0 Univers 1-05 ity of 00:00: [place] 00 MD Stella haskins [facility] Pleuritic Pleuritic Disease Active 2020- Uni vers pain pain 1-05 ity of 00:00: [place] 00 MD Stella haskins [facility] Hypertensi Hypertensi Disease Active 2019- U nivers on on 0-28 ity of 00:00: [place] 00 MD Stella haskins [facility] Headache Headache Disease Active 2019- Unive rs 0-28 ity of 00:00: [place] 00 MD Stella haskins [facility] Anemia in Anemia in Disease Active 2019- Uni vers neoplastic neoplastic 0-24 it y of disease disease 00:00: [place] 00 MD Stella haskins [facility] Fever Fever Disease Active 2019- Univers greater greater 0-23 ity of than 100.4 [place] 100.4 [place] Fahrenheit Fahrenheit 00 MD [facility] Right Right Disease Active 2019 Univers flank pain flank pain 0-23 it y of 00:00: [place] 00 MD Stella haskins [facility] Pyelonephr Pyelonephr Disease Active 2019- U nivers itis itis 0-23 ity of 00:00: [place] 00 MD Stella haskins [facility] Chronic Chronic Disease Active 2019- Univers kidney kidney 9-17 ity of disease disease 00:00: [place] stage 3A stage 3A 00 MD Stella haskins [facility] Fever Fever Disease Active 2019- Univers 9-17 ity of 00:00: [place] 00 MD Stella haskins [facility] Allergy to Allergy to Disease Active 2019-0 U nivers contrast contrast 5-28 ity of media media 00:00: [place] 00 MD Stella haskins [facility] 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 ruiz 00:00: [place] malnutriti malnutriti 00 MD lezama on [facility] Pyelonephr Pyelonephr Disease Active 2019-0 U nivers itis itis 3-21 ity of 00:00: [place] 00 MD Stella haskins [facility] Febrile Febrile Disease Active 2019-0 Univers neutropeni neutropeni 3-21 it y of a a 00:00: [place] 00 MD [facility] 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 00 MD Stella haskins [facility] Hydronephr Hydronephr Disease Active U nivers osis osis 8-09 ity of 00:00: [place] 00 MD Stella haskins [facility] Center Dysuria Dysuria Disease Active Univers ity of [place] MD Stella haskins [facility] Center Rhinovirus Rhinovirus Disease Active U nivers infection infection ity of in in [place] conditions conditions classified classified An derso elsewhere elsewhere n and of and of Cancer unspecifie unspecifie Ce nter d site d site Chronic Chronic Disease Active Univers kidney kidney ity of disease disease [place] MD [facility] Ureteral Ureteral Problem Active [facility] obstructio obstructio HL7.CCDAR2 Physici n n ans Screening Screening Problem Active [facility] for for HL7.CCDAR2 Physic i cervical cervical ans cancer cancer Vaginal Vaginal Problem Active [facility] mac mac HL7.CCDAR2 Phys ici ans Lymphoma Lymphoma Problem Active [facility] HL7.CCDAR2 Physic i ans History of History of Problem Resolve [facility] lymphoma lymphoma HL7.CCDAR2 d Ph ysici ans Abdominal Abdominal Problem Active [facility] pain pain HL7.CCDAR2 Physic i ans Left flank Left flank Disease Resolve 2018-0 2021-06-22 2021-06-22 Univers pain pain d 9-11 00:00:00 13:18:27 ity of 00:00: [place] 00 MD [facility] Allergies, Adverse Reactions, Alerts Allergy Allergy Status Severity Reaction(s) Onset Inactive Treating Comm ents Source Name Type Date Date Clinician NITROFUR DRUG Active Nausea 2020-0 MD ANTOIN 3-01 Anderso MONOHYD/ 00:00: n M-CRYST 00 NITROFUR DRUG Active Nausea 1-0 MD ANTOIN 3- Anderso MONOHYD/ 00:00: n M-CRYST 00 NITROFUR DRUG Active Nausea 2020-0 MD ANTOIN 3- Anderso MONOHYD/ 00:00: n M-CRYST 00 NITROFUR DRUG Active Nausea 2021-0 MD ANTOIN 3- Anderso MONOHYD/ 00:00: n M-CRYST 00 NITROFUR DRUG Active Nausea 1-0 MD ANTOIN 3- Anderso MONOHYD/ 00:00: n M-CRYST 00 NITROFUR DRUG Active Nausea 2021-0 MD ANTOIN 3- Anderso MONOHYD/ 00:00: n M-CRYST 00 NITROFUR DRUG Active Nausea 2021-0 MD ANTOIN 3- Anderso MONOHYD/ 00:00: n M-CRYST 00 NITROFUR DRUG Active Nausea 2021-0 MD ANTOIN 3- Anderso MONOHYD/ 00:00: n M-CRYST 00 NITROFUR DRUG Active Nausea 1-0 MD ANTOIN 3- Anderso MONOHYD/ 00:00: n M-CRYST 00 NITROFUR DRUG Active Nausea 2021-0 MD ANTOIN 3-01 Anderso MONOHYD/ 00:00: n M-CRYST 00 NITROFUR DRUG Active Nausea 2021-0 MD ANTOIN 3-01 Anderso MONOHYD/ 00:00: n M-CRYST 00 NITROFUR DRUG Active Nausea 2021-0 MD ANTOIN 3-01 Anderso MONOHYD/ 00:00: n M-CRYST 00 NITROFUR DRUG Active Nausea 2021-0 MD ANTOIN 3-01 Anderso MONOHYD/ 00:00: n M-CRYST 00 NITROFUR DRUG Active Nausea 2021-0 MD ANTOIN 3-01 Anderso MONOHYD/ 00:00: n M-CRYST 00 NITROFUR DRUG Active Nausea 2021-0 MD ANTOIN 3- Anderso MONOHYD/ 00:00: n M-CRYST 00 NITROFUR DRUG Active Nausea 2021-0 MD ANTOIN 3-01 Anderso MONOHYD/ 00:00: n M-CRYST 00 NITROFUR DRUG Active Nausea 2021-0 MD ANTOIN 3- Anderso MONOHYD/ 00:00: n M-CRYST 00 NITROFUR DRUG Active Nausea 2021-0 MD ANTOIN 3- Anderso MONOHYD/ 00:00: n M-CRYST 00 NITROFUR DRUG Active Nausea 2021-0 MD ANTOIN 3- Anderso MONOHYD/ 00:00: n M-CRYST 00 NITROFUR DRUG Active Nausea 2021-0 MD ANTOIN 3- Anderso MONOHYD/ 00:00: n M-CRYST 00 NITROFUR DRUG Active Nausea 2021-0 MD ANTOIN 3- Anderso MONOHYD/ 00:00: n M-CRYST 00 NITROFUR DRUG Active Nausea 2021-0 MD ANTOIN 3- Anderso MONOHYD/ 00:00: n M-CRYST 00 NITROFUR DRUG Active Nausea 2021-0 MD ANTOIN 3- Anderso MONOHYD/ 00:00: n M-CRYST 00 NITROFUR DRUG Active Nausea 2021-0 MD ANTOIN 3- Anderso MONOHYD/ 00:00: n M-CRYST 00 NITROFUR DRUG Active Nausea 2021-0 MD ANTOIN 3- Anderso MONOHYD/ 00:00: n M-CRYST 00 NITROFUR DRUG Active Nausea 2021-0 MD ANTOIN 3- Anderso MONOHYD/ 00:00: n M-CRYST 00 NITROFUR DRUG Active Nausea 2021-0 MD ANTOIN 3- Anderso MONOHYD/ 00:00: n M-CRYST 00 NITROFUR DRUG Active Nausea 2021-0 MD ANTOIN 3-01 Anderso MONOHYD/ 00:00: n M-CRYST 00 NITROFUR DRUG Active Nausea 2021-0 MD ANTOIN 3-01 Anderso MONOHYD/ 00:00: n M-CRYST 00 NITROFUR DRUG Active Nausea 2021-0 MD ANTOIN 3-01 Anderso MONOHYD/ 00:00: n M-CRYST 00 NITROFUR DRUG Active Nausea 2021-0 MD ANTOIN 3- Anderso MONOHYD/ 00:00: n M-CRYST 00 NITROFUR DRUG Active Nausea 2021-0 MD ANTOIN 3- Anderso MONOHYD/ 00:00: n M-CRYST 00 NITROFUR DRUG Active Nausea 2021-0 MD ANTOIN 3- Anderso MONOHYD/ 00:00: n M-CRYST 00 NITROFUR DRUG Active Nausea 2021-0 MD ANTOIN 3- Anderso MONOHYD/ 00:00: n M-CRYST 00 NITROFUR DRUG Active Nausea 2021-0 MD ANTOIN 3- Anderso MONOHYD/ 00:00: n M-CRYST 00 NITROFUR DRUG Active Nausea 2021-0 MD ANTOIN 3- Anderso MONOHYD/ 00:00: n M-CRYST 00 NITROFUR DRUG Active Nausea 2021-0 MD ANTOIN 3- Anderso MONOHYD/ 00:00: n M-CRYST 00 NITROFUR DRUG Active Nausea 2021-0 MD ANTOIN 3- Anderso MONOHYD/ 00:00: n M-CRYST 00 NITROFUR DRUG Active Nausea 2021-0 MD ANTOIN 3- Anderso MONOHYD/ 00:00: n M-CRYST 00 NITROFUR DRUG Active Nausea 2021-0 MD ANTOIN 3- Anderso MONOHYD/ 00:00: n M-CRYST 00 NITROFUR DRUG Active Nausea 2021-0 MD ANTOIN 3- Anderso MONOHYD/ 00:00: n M-CRYST 00 NITROFUR DRUG Active Nausea 2021-0 MD ANTOIN 3- Anderso MONOHYD/ 00:00: n M-CRYST 00 NITROFUR DRUG Active Nausea 2021-0 MD ANTOIN 3- Anderso MONOHYD/ 00:00: n M-CRYST 00 NITROFUR DRUG Active Nausea 2021-0 MD ANTOIN 3- Anderso MONOHYD/ 00:00: n M-CRYST 00 NITROFUR DRUG Active Nausea 2021-0 MD ANTOIN 3- Anderso MONOHYD/ 00:00: n M-CRYST 00 NITROFUR DRUG Active Nausea 2021-0 MD ANTOIN 3-01 Anderso MONOHYD/ 00:00: n M-CRYST 00 NITROFUR DRUG Active Nausea 2021-0 MD ANTOIN 3- Anderso MONOHYD/ 00:00: n M-CRYST 00 NITROFUR DRUG Active Nausea 2021-0 MD ANTOIN 3- Anderso MONOHYD/ 00:00: n M-CRYST 00 NITROFUR DRUG Active Nausea 2021-0 MD ANTOIN 3- Anderso MONOHYD/ 00:00: n M-CRYST 00 NITROFUR DRUG Active Nausea 2021-0 MD ANTOIN 3- Anderso MONOHYD/ 00:00: n M-CRYST 00 NITROFUR DRUG Active Nausea 2021-0 MD ANTOIN 3- Anderso MONOHYD/ 00:00: n M-CRYST 00 NITROFUR DRUG Active Nausea 2021-0 MD ANTOIN 3- Anderso MONOHYD/ 00:00: n M-CRYST 00 NITROFUR DRUG Active Nausea 2021-0 MD ANTOIN 3- Anderso MONOHYD/ 00:00: n M-CRYST 00 NITROFUR DRUG Active Nausea 2021-0 MD ANTOIN 3- Anderso MONOHYD/ 00:00: n M-CRYST 00 NITROFUR DRUG Active Nausea 2021-0 MD ANTOIN 3- Anderso MONOHYD/ 00:00: n M-CRYST 00 NITROFUR DRUG Active Nausea 2021-0 MD ANTOIN 3- Anderso MONOHYD/ 00:00: n M-CRYST 00 NITROFUR DRUG Active Nausea 2021-0 MD ANTOIN 3- Anderso MONOHYD/ 00:00: n M-CRYST 00 NITROFUR DRUG Active Nausea 2021-0 MD ANTOIN 3- Anderso MONOHYD/ 00:00: n M-CRYST 00 NITROFUR DRUG Active Nausea 2021-0 MD ANTOIN 3- Anderso MONOHYD/ 00:00: n M-CRYST 00 NITROFUR DRUG Active Nausea 2021-0 MD ANTOIN 3- Anderso MONOHYD/ 00:00: n M-CRYST 00 NITROFUR DRUG Active Nausea 2021-0 MD ANTOIN 3- Anderso MONOHYD/ 00:00: n M-CRYST 00 NITROFUR DRUG Active Nausea 2021-0 MD ANTOIN 3-01 Anderso MONOHYD/ 00:00: n M-CRYST 00 NITROFUR DRUG Active Nausea 2021-0 MD ANTOIN 3-01 Anderso MONOHYD/ 00:00: n M-CRYST 00 NITROFUR DRUG Active Nausea 2021-0 MD ANTOIN 3-01 Anderso MONOHYD/ 00:00: n M-CRYST 00 NITROFUR DRUG Active Nausea 2021-0 MD ANTOIN 3- Anderso MONOHYD/ 00:00: n M-CRYST 00 NITROFUR DRUG Active Nausea 2021-0 MD ANTOIN 3- Anderso MONOHYD/ 00:00: n M-CRYST 00 NITROFUR DRUG Active Nausea 2021-0 MD ANTOIN 3- Anderso MONOHYD/ 00:00: n M-CRYST 00 NITROFUR DRUG Active Nausea 2021-0 MD ANTOIN 3- Anderso MONOHYD/ 00:00: n M-CRYST 00 NITROFUR DRUG Active Nausea 2021-0 MD ANTOIN 3- Anderso MONOHYD/ 00:00: n M-CRYST 00 NITROFUR DRUG Active Nausea 2021-0 MD ANTOIN 3- Anderso MONOHYD/ 00:00: n M-CRYST 00 NITROFUR DRUG Active Nausea 2021-0 MD ANTOIN 3- Anderso MONOHYD/ 00:00: n M-CRYST 00 NITROFUR DRUG Active Nausea 2021-0 MD ANTOIN 3- Anderso MONOHYD/ 00:00: n M-CRYST 00 NITROFUR DRUG Active Nausea 2021-0 MD ANTOIN 3- Anderso MONOHYD/ 00:00: n M-CRYST 00 NITROFUR DRUG Active Nausea 2021-0 MD ANTOIN 3- Anderso MONOHYD/ 00:00: n M-CRYST 00 NITROFUR DRUG Active Nausea 2021-0 MD ANTOIN 3- Anderso MONOHYD/ 00:00: n M-CRYST 00 NITROFUR DRUG Active Nausea 2021-0 MD ANTOIN 3-01 Anderso MONOHYD/ 00:00: n M-CRYST 00 NITROFUR DRUG Active Nausea 2021-0 MD ANTOIN 3-01 Anderso MONOHYD/ 00:00: n M-CRYST 00 NITROFUR DRUG Active Nausea 2021-0 MD ANTOIN 3-01 Anderso MONOHYD/ 00:00: n M-CRYST 00 NITROFUR DRUG Active Nausea 2021-0 MD ANTOIN 3- Anderso MONOHYD/ 00:00: n M-CRYST 00 NITROFUR DRUG Active Nausea 2021-0 MD ANTOIN 3-01 Anderso MONOHYD/ 00:00: n M-CRYST 00 NITROFUR DRUG Active Nausea 2021-0 MD ANTOIN 3- Anderso MONOHYD/ 00:00: n M-CRYST 00 NITROFUR DRUG Active Nausea 2021-0 MD ANTOIN 3- Anderso MONOHYD/ 00:00: n M-CRYST 00 NITROFUR DRUG Active Nausea 2021-0 MD ANTOIN 3- Anderso MONOHYD/ 00:00: n M-CRYST 00 NITROFUR DRUG Active Nausea 2021-0 MD ANTOIN 3- Anderso MONOHYD/ 00:00: n M-CRYST 00 NITROFUR DRUG Active Nausea 2021-0 MD ANTOIN 3- Anderso MONOHYD/ 00:00: n M-CRYST 00 NITROFUR DRUG Active Nausea 2021-0 MD ANTOIN 3- Anderso MONOHYD/ 00:00: n M-CRYST 00 NITROFUR DRUG Active Nausea 2021-0 MD ANTOIN 3- Anderso MONOHYD/ 00:00: n M-CRYST 00 NITROFUR DRUG Active Nausea 2021-0 MD ANTOIN 3- Anderso MONOHYD/ 00:00: n M-CRYST 00 NITROFUR DRUG Active Nausea 2021-0 MD ANTOIN 3- Anderso MONOHYD/ 00:00: n M-CRYST 00 NITROFUR DRUG Active Nausea 2021-0 MD ANTOIN 3- Anderso MONOHYD/ 00:00: n M-CRYST 00 NITROFUR DRUG Active Nausea 2021-0 MD ANTOIN 3- Anderso MONOHYD/ 00:00: n M-CRYST 00 NITROFUR DRUG Active Nausea 2021-0 MD ANTOIN 3-01 Anderso MONOHYD/ 00:00: n M-CRYST 00 NITROFUR DRUG Active Nausea 2021-0 MD ANTOIN 3-01 Anderso MONOHYD/ 00:00: n M-CRYST 00 NITROFUR DRUG Active Nausea 2021-0 MD ANTOIN 3-01 Anderso MONOHYD/ 00:00: n M-CRYST 00 NITROFUR DRUG Active Nausea 2021-0 MD ANTOIN 3- Anderso MONOHYD/ 00:00: n M-CRYST 00 NITROFUR DRUG Active Nausea 2021-0 MD ANTOIN 3- Anderso MONOHYD/ 00:00: n M-CRYST 00 NITROFUR DRUG Active Nausea 2021-0 MD ANTOIN 3- Anderso MONOHYD/ 00:00: n M-CRYST 00 NITROFUR DRUG Active Nausea 2021-0 MD ANTOIN 3- Anderso MONOHYD/ 00:00: n M-CRYST 00 NITROFUR DRUG Active Nausea 2021-0 MD ANTOIN 3- Anderso MONOHYD/ 00:00: n M-CRYST 00 NITROFUR DRUG Active Nausea 2021-0 MD ANTOIN 3- Anderso MONOHYD/ 00:00: n M-CRYST 00 NITROFUR DRUG Active Nausea 2021-0 MD ANTOIN 3- Anderso MONOHYD/ 00:00: n M-CRYST 00 NITROFUR DRUG Active Nausea 2021-0 MD ANTOIN 3- Anderso MONOHYD/ 00:00: n M-CRYST 00 NITROFUR DRUG Active Nausea 2021-0 MD ANTOIN 3- Anderso MONOHYD/ 00:00: n M-CRYST 00 NITROFUR DRUG Active Nausea 2021-0 MD ANTOIN 3- Anderso MONOHYD/ 00:00: n M-CRYST 00 NITROFUR DRUG Active Nausea 2021-0 MD ANTOIN 3- Anderso MONOHYD/ 00:00: n M-CRYST 00 NITROFUR DRUG Active Nausea 2021-0 MD ANTOIN 3- Anderso MONOHYD/ 00:00: n M-CRYST 00 NITROFUR DRUG Active Nausea 2021-0 MD ANTOIN 3- Anderso MONOHYD/ 00:00: n M-CRYST 00 NITROFUR DRUG Active Nausea 2021-0 MD ANTOIN 3-01 Anderso MONOHYD/ 00:00: n M-CRYST 00 NITROFUR DRUG Active Nausea 2021-0 MD ANTOIN 3-01 Anderso MONOHYD/ 00:00: n M-CRYST 00 NITROFUR DRUG Active Nausea 2021-0 MD ANTOIN 3- Anderso MONOHYD/ 00:00: n M-CRYST 00 NITROFUR DRUG Active Nausea 2021-0 MD ANTOIN 3- Anderso MONOHYD/ 00:00: n M-CRYST 00 NITROFUR DRUG Active Nausea 2021-0 MD ANTOIN 3- Anderso MONOHYD/ 00:00: n M-CRYST 00 NITROFUR DRUG Active Nausea 2021-0 MD ANTOIN 3- Anderso MONOHYD/ 00:00: n M-CRYST 00 NITROFUR DRUG Active Nausea 2021-0 MD ANTOIN 3- Anderso MONOHYD/ 00:00: n M-CRYST 00 NITROFUR DRUG Active Nausea 2021-0 MD ANTOIN 3- Anderso MONOHYD/ 00:00: n M-CRYST 00 NITROFUR DRUG Active Nausea 2021-0 MD ANTOIN 3- Anderso MONOHYD/ 00:00: n M-CRYST 00 NITROFUR DRUG Active Nausea 2021-0 MD ANTOIN 3- Anderso MONOHYD/ 00:00: n M-CRYST 00 NITROFUR DRUG Active Nausea 2021-0 MD ANTOIN 3- Anderso MONOHYD/ 00:00: n M-CRYST 00 NITROFUR DRUG Active Nausea 2021-0 MD ANTOIN 3- Anderso MONOHYD/ 00:00: n M-CRYST 00 NITROFUR DRUG Active Nausea 2021-0 MD ANTOIN 3- Anderso MONOHYD/ 00:00: n M-CRYST 00 NITROFUR DRUG Active Nausea 2021-0 MD ANTOIN 3- Anderso MONOHYD/ 00:00: n M-CRYST 00 NITROFUR DRUG Active Nausea 2021-0 MD ANTOIN 3- Anderso MONOHYD/ 00:00: n M-CRYST 00 NITROFUR DRUG Active Nausea 2021-0 MD ANTOIN 3- Anderso MONOHYD/ 00:00: n M-CRYST 00 NITROFUR DRUG Active Nausea 2021-0 MD ANTOIN 3-01 Anderso MONOHYD/ 00:00: n M-CRYST 00 NITROFUR DRUG Active Nausea 2021-0 MD ANTOIN 3-01 Anderso MONOHYD/ 00:00: n M-CRYST 00 NITROFUR DRUG Active Nausea 2021-0 MD ANTOIN 3-01 Anderso MONOHYD/ 00:00: n M-CRYST 00 NITROFUR DRUG Active Nausea 2021-0 MD ANTOIN 3-01 Anderso MONOHYD/ 00:00: n M-CRYST 00 NITROFUR DRUG Active Nausea 2021-0 MD ANTOIN 3- Anderso MONOHYD/ 00:00: n M-CRYST 00 NITROFUR DRUG Active Nausea 2021-0 MD ANTOIN 3-01 Anderso MONOHYD/ 00:00: n M-CRYST 00 NITROFUR DRUG Active Nausea 2021-0 MD ANTOIN 3- Anderso MONOHYD/ 00:00: n M-CRYST 00 NITROFUR DRUG Active Nausea 2021-0 MD ANTOIN 3- Anderso MONOHYD/ 00:00: n M-CRYST 00 NITROFUR DRUG Active Nausea 2021-0 MD ANTOIN 3- Anderso MONOHYD/ 00:00: n M-CRYST 00 NITROFUR DRUG Active Nausea 2021-0 MD ANTOIN 3- Anderso MONOHYD/ 00:00: n M-CRYST 00 NITROFUR DRUG Active Nausea 2021-0 MD ANTOIN 3- Anderso MONOHYD/ 00:00: n M-CRYST 00 NITROFUR DRUG Active Nausea 2021-0 MD ANTOIN 3- Anderso MONOHYD/ 00:00: n M-CRYST 00 NITROFUR DRUG Active Nausea 2021-0 MD ANTOIN 3- Anderso MONOHYD/ 00:00: n M-CRYST 00 NITROFUR DRUG Active Nausea 2021-0 MD ANTOIN 3- Anderso MONOHYD/ 00:00: n M-CRYST 00 NITROFUR DRUG Active Nausea 2021-0 MD ANTOIN 3- Anderso MONOHYD/ 00:00: n M-CRYST 00 NITROFUR DRUG Active Nausea 2021-0 MD ANTOIN 3- Anderso MONOHYD/ 00:00: n M-CRYST 00 NITROFUR DRUG Active Nausea 2021-0 MD ANTOIN 3-01 Anderso MONOHYD/ 00:00: n M-CRYST 00 NITROFUR DRUG Active Nausea 2021-0 MD ANTOIN 3-01 Anderso MONOHYD/ 00:00: n M-CRYST 00 NITROFUR DRUG Active Nausea 2021-0 MD ANTOIN 3-01 Anderso MONOHYD/ 00:00: n M-CRYST 00 NITROFUR DRUG Active Nausea 2021-0 MD ANTOIN 3-01 Anderso MONOHYD/ 00:00: n M-CRYST 00 NITROFUR DRUG Active Nausea 2021-0 MD ANTOIN 3- Anderso MONOHYD/ 00:00: n M-CRYST 00 NITROFUR DRUG Active Nausea 2021-0 MD ANTOIN 3-01 Anderso MONOHYD/ 00:00: n M-CRYST 00 NITROFUR DRUG Active Nausea 2021-0 MD ANTOIN 3- Anderso MONOHYD/ 00:00: n M-CRYST 00 NITROFUR DRUG Active Nausea 2021-0 MD ANTOIN 3- Anderso MONOHYD/ 00:00: n M-CRYST 00 NITROFUR DRUG Active Nausea 2021-0 MD ANTOIN 3- Anderso MONOHYD/ 00:00: n M-CRYST 00 NITROFUR DRUG Active Nausea 2021-0 MD ANTOIN 3- Anderso MONOHYD/ 00:00: n M-CRYST 00 NITROFUR DRUG Active Nausea 2021-0 MD ANTOIN 3- Anderso MONOHYD/ 00:00: n M-CRYST 00 NITROFUR DRUG Active Nausea 2021-0 MD ANTOIN 3- Anderso MONOHYD/ 00:00: n M-CRYST 00 NITROFUR DRUG Active Nausea 2021-0 MD ANTOIN 3- Anderso MONOHYD/ 00:00: n M-CRYST 00 NITROFUR DRUG Active Nausea 2021-0 MD ANTOIN 3- Anderso MONOHYD/ 00:00: n M-CRYST 00 NITROFUR DRUG Active Nausea 2021-0 MD ANTOIN 3- Anderso MONOHYD/ 00:00: n M-CRYST 00 NITROFUR DRUG Active Nausea 2021-0 MD ANTOIN 3- Anderso MONOHYD/ 00:00: n M-CRYST 00 NITROFUR DRUG Active Nausea 2021-0 MD ANTOIN 3- Anderso MONOHYD/ 00:00: n M-CRYST 00 NITROFUR DRUG Active Nausea 2021-0 MD ANTOIN 3-01 Anderso MONOHYD/ 00:00: n M-CRYST 00 NITROFUR DRUG Active Nausea 2021-0 MD ANTOIN 3- Anderso MONOHYD/ 00:00: n M-CRYST 00 NITROFUR DRUG Active Nausea 2021-0 MD ANTOIN 3-01 Anderso MONOHYD/ 00:00: n M-CRYST 00 NITROFUR DRUG Active Nausea 2020-0 MD ANTOIN 3-01 Anderso MONOHYD/ 00:00: n M-CRYST 00 NITROFUR DRUG Active Nausea 2020-0 MD ANTOIN 3- Anderso MONOHYD/ 00:00: n M-CRYST 00 NITROFUR DRUG Active Nausea 2020-0 MD ANTOIN 3- Anderso MONOHYD/ 00:00: n M-CRYST 00 Nitrofur Drug Active GI 2020-0 Nausea, [facility] antoin Intolera Intolerance 3- vomiting i ty of Monohyd/ nce 00:00: , [place] M-Cryst 00 [facility] Active Other 2018-0 MD INGREDI 8-20 Anderso 00:00: n 00 CODEINE DRUG Active Other 2018-0 MD INGREDI 8-20 Anderso 00:00: n 00 CODEINE DRUG Active Other 2018-0 MD INGREDI 8-20 Anderso 00:00: n 00 CODEINE DRUG Active Other 2018-0 MD INGREDI 8-20 Anderso 00:00: n 00 CODEINE DRUG Active Other 2018-0 MD INGREDI 8-20 Anderso 00:00: n 00 CODEINE DRUG Active Other 2018-0 MD INGREDI 8-20 Anderso 00:00: n 00 CODEINE DRUG Active Other 2018-0 MD INGREDI 8-20 Anderso 00:00: n 00 CODEINE DRUG Active Other 2018-0 MD INGREDI 8-20 Anderso 00:00: n 00 CODEINE DRUG Active Other 2018-0 MD INGREDI 8-20 Anderso 00:00: n 00 CODEINE DRUG Active Other 2018-0 MD INGREDI 8-20 Anderso 00:00: n 00 CODEINE DRUG Active Other 2018-0 MD INGREDI 8-20 Anderso 00:00: n 00 CODEINE DRUG Active Other 2018-0 MD INGREDI 8-20 Anderso 00:00: n 00 CODEINE DRUG Active Other 2018-0 MD INGREDI 8-20 Anderso 00:00: n 00 CODEINE DRUG Active Other 2018-0 MD INGREDI 8-20 Anderso 00:00: n 00 CODEINE DRUG Active Other 2018-0 MD INGREDI 8-20 Anderso 00:00: n 00 CODEINE DRUG Active Other 2018-0 MD INGREDI 8-20 Anderso 00:00: n 00 CODEINE DRUG Active Other 2018-0 MD INGREDI 8-20 Anderso 00:00: n 00 CODEINE DRUG Active Other 2018-0 MD INGREDI 8-20 Anderso 00:00: n 00 CODEINE DRUG Active Other 2018-0 MD INGREDI 8-20 Anderso 00:00: n 00 CODEINE DRUG Active Other 2018-0 MD INGREDI 8-20 Anderso 00:00: n 00 CODEINE DRUG Active Other 2018-0 MD INGREDI 8-20 Anderso 00:00: n 00 CODEINE DRUG Active Other 2018-0 MD INGREDI 8-20 Anderso 00:00: n 00 CODEINE DRUG Active Other 2018-0 MD INGREDI 8-20 Anderso 00:00: n 00 CODEINE DRUG Active Other 2018-0 MD INGREDI 8-20 Anderso 00:00: n 00 CODEINE DRUG Active Other 2018-0 MD INGREDI 8-20 Anderso 00:00: n 00 CODEINE DRUG Active Other 2018-0 MD INGREDI 8-20 Anderso 00:00: n 00 CODEINE DRUG Active Other 2018-0 MD INGREDI 8-20 Anderso 00:00: n 00 CODEINE DRUG Active Other 2018-0 MD INGREDI 8-20 Anderso 00:00: n 00 CODEINE DRUG Active Other 2018-0 MD INGREDI 8-20 Anderso 00:00: n 00 CODEINE DRUG Active Other 2018-0 MD INGREDI 8-20 Anderso 00:00: n 00 CODEINE DRUG Active Other 2018-0 MD INGREDI 8-20 Anderso 00:00: n 00 CODEINE DRUG Active Other 2018-0 MD INGREDI 8-20 Anderso 00:00: n 00 CODEINE DRUG Active Other 2018-0 MD INGREDI 8-20 Anderso 00:00: n 00 CODEINE DRUG Active Other 2018-0 MD INGREDI 8-20 Anderso 00:00: n 00 CODEINE DRUG Active Other 2018-0 MD INGREDI 8-20 Anderso 00:00: n 00 CODEINE DRUG Active Other 2018-0 MD INGREDI 8-20 Anderso 00:00: n 00 CODEINE DRUG Active Other 2018-0 MD INGREDI 8-20 Anderso 00:00: n 00 CODEINE DRUG Active Other 2018-0 MD INGREDI 8-20 Anderso 00:00: n 00 CODEINE DRUG Active Other 2018-0 MD INGREDI 8-20 Anderso 00:00: n 00 CODEINE DRUG Active Other 2018-0 MD INGREDI 8-20 Anderso 00:00: n 00 CODEINE DRUG Active Other 2018-0 MD INGREDI 8-20 Anderso 00:00: n 00 CODEINE DRUG Active Other 2018-0 MD INGREDI 8-20 Anderso 00:00: n 00 CODEINE DRUG Active Other 2018-0 MD INGREDI 8-20 Anderso 00:00: n 00 CODEINE DRUG Active Other 2018-0 MD INGREDI 8-20 Anderso 00:00: n 00 CODEINE DRUG Active Other 2018-0 MD INGREDI 8-20 Anderso 00:00: n 00 CODEINE DRUG Active Other 2018-0 MD INGREDI 8-20 Anderso 00:00: n 00 CODEINE DRUG Active Other 2018-0 MD INGREDI 8-20 Anderso 00:00: n 00 CODEINE DRUG Active Other 2018-0 MD INGREDI 8-20 Anderso 00:00: n 00 CODEINE DRUG Active Other 2018-0 MD INGREDI 8-20 Anderso 00:00: n 00 CODEINE DRUG Active Other 2018-0 MD INGREDI 8-20 Anderso 00:00: n 00 CODEINE DRUG Active Other 2018-0 MD INGREDI 8-20 Anderso 00:00: n 00 CODEINE DRUG Active Other 2018-0 MD INGREDI 8-20 Anderso 00:00: n 00 CODEINE DRUG Active Other 2018-0 MD INGREDI 8-20 Anderso 00:00: n 00 CODEINE DRUG Active Other 2018-0 MD INGREDI 8-20 Anderso 00:00: n 00 CODEINE DRUG Active Other 2018-0 MD INGREDI 8-20 Anderso 00:00: n 00 CODEINE DRUG Active Other 2018-0 MD INGREDI 8-20 Anderso 00:00: n 00 CODEINE DRUG Active Other 2018-0 MD INGREDI 8-20 Anderso 00:00: n 00 CODEINE DRUG Active Other 2018-0 MD INGREDI 8-20 Anderso 00:00: n 00 CODEINE DRUG Active Other 2018-0 MD INGREDI 8-20 Anderso 00:00: n 00 CODEINE DRUG Active Other 2018-0 MD INGREDI 8-20 Anderso 00:00: n 00 CODEINE DRUG Active Other 2018-0 MD INGREDI 8-20 Anderso 00:00: n 00 CODEINE DRUG Active Other 2018-0 MD INGREDI 8-20 Anderso 00:00: n 00 CODEINE DRUG Active Other 2018-0 MD INGREDI 8-20 Anderso 00:00: n 00 CODEINE DRUG Active Other 2018-0 MD INGREDI 8-20 Anderso 00:00: n 00 CODEINE DRUG Active Other 2018-0 MD INGREDI 8-20 Anderso 00:00: n 00 CODEINE DRUG Active Other 2018-0 MD INGREDI 8-20 Anderso 00:00: n 00 CODEINE DRUG Active Other 2018-0 MD INGREDI 8-20 Anderso 00:00: n 00 CODEINE DRUG Active Other 2018-0 MD INGREDI 8-20 Anderso 00:00: n 00 CODEINE DRUG Active Other 2018-0 MD INGREDI 8-20 Anderso 00:00: n 00 CODEINE DRUG Active Other 2018-0 MD INGREDI 8-20 Anderso 00:00: n 00 CODEINE DRUG Active Other 2018-0 MD INGREDI 8-20 Anderso 00:00: n 00 CODEINE DRUG Active Other 2018-0 MD INGREDI 8-20 Anderso 00:00: n 00 CODEINE DRUG Active Other 2018-0 MD INGREDI 8-20 Anderso 00:00: n 00 CODEINE DRUG Active Other 2018-0 MD INGREDI 8-20 Anderso 00:00: n 00 CODEINE DRUG Active Other 2018-0 MD INGREDI 8-20 Anderso 00:00: n 00 CODEINE DRUG Active Other 2018-0 MD INGREDI 8-20 Anderso 00:00: n 00 CODEINE DRUG Active Other 2018-0 MD INGREDI 8-20 Anderso 00:00: n 00 CODEINE DRUG Active Other 2018-0 MD INGREDI 8-20 Anderso 00:00: n 00 CODEINE DRUG Active Other 2018-0 MD INGREDI 8-20 Anderso 00:00: n 00 CODEINE DRUG Active Other 2018-0 MD INGREDI 8-20 Anderso 00:00: n 00 CODEINE DRUG Active Other 2018-0 MD INGREDI 8-20 Anderso 00:00: n 00 CODEINE DRUG Active Other 2018-0 MD INGREDI 8-20 Anderso 00:00: n 00 CODEINE DRUG Active Other 2018-0 MD INGREDI 8-20 Anderso 00:00: n 00 CODEINE DRUG Active Other 2018-0 MD INGREDI 8-20 Anderso 00:00: n 00 CODEINE DRUG Active Other 2018-0 MD INGREDI 8-20 Anderso 00:00: n 00 CODEINE DRUG Active Other 2018-0 MD INGREDI 8-20 Anderso 00:00: n 00 CODEINE DRUG Active Other 2018-0 MD INGREDI 8-20 Anderso 00:00: n 00 CODEINE DRUG Active Other 2018-0 MD INGREDI 8-20 Anderso 00:00: n 00 CODEINE DRUG Active Other 2018-0 MD INGREDI 8-20 Anderso 00:00: n 00 CODEINE DRUG Active Other 2018-0 MD INGREDI 8-20 Anderso 00:00: n 00 CODEINE DRUG Active Other 2018-0 MD INGREDI 8-20 Anderso 00:00: n 00 CODEINE DRUG Active Other 2018-0 MD INGREDI 8-20 Anderso 00:00: n 00 CODEINE DRUG Active Other 2018-0 MD INGREDI 8-20 Anderso 00:00: n 00 CODEINE DRUG Active Other 2018-0 MD INGREDI 8-20 Anderso 00:00: n 00 CODEINE DRUG Active Other 2018-0 MD INGREDI 8-20 Anderso 00:00: n 00 CODEINE DRUG Active Other 2018-0 MD INGREDI 8-20 Anderso 00:00: n 00 CODEINE DRUG Active Other 2018-0 MD INGREDI 8-20 Anderso 00:00: n 00 CODEINE DRUG Active Other 2018-0 MD INGREDI 8-20 Anderso 00:00: n 00 CODEINE DRUG Active Other 2018-0 MD INGREDI 8-20 Anderso 00:00: n 00 CODEINE DRUG Active Other 2018-0 MD INGREDI 8-20 Anderso 00:00: n 00 CODEINE DRUG Active Other 2018-0 MD INGREDI 8-20 Anderso 00:00: n 00 CODEINE DRUG Active Other 2018-0 MD INGREDI 8-20 Anderso 00:00: n 00 CODEINE DRUG Active Other 2018-0 MD INGREDI 8-20 Anderso 00:00: n 00 CODEINE DRUG Active Other 2018-0 MD INGREDI 8-20 Anderso 00:00: n 00 CODEINE DRUG Active Other 2018-0 MD INGREDI 8-20 Anderso 00:00: n 00 CODEINE DRUG Active Other 2018-0 MD INGREDI 8-20 Anderso 00:00: n 00 CODEINE DRUG Active Other 2018-0 MD INGREDI 8-20 Anderso 00:00: n 00 CODEINE DRUG Active Other 2018-0 MD INGREDI 8-20 Anderso 00:00: n 00 CODEINE DRUG Active Other 2018-0 MD INGREDI 8-20 Anderso 00:00: n 00 CODEINE DRUG Active Other 2018-0 MD INGREDI 8-20 Anderso 00:00: n 00 CODEINE DRUG Active Other 2018-0 MD INGREDI 8-20 Anderso 00:00: n 00 CODEINE DRUG Active Other 2018-0 MD INGREDI 8-20 Anderso 00:00: n 00 CODEINE DRUG Active Other 2018-0 MD INGREDI 8-20 Anderso 00:00: n 00 CODEINE DRUG Active Other 2018-0 MD INGREDI 8-20 Anderso 00:00: n 00 CODEINE DRUG Active Other 2018-0 MD INGREDI 8-20 Anderso 00:00: n 00 CODEINE DRUG Active Other 2018-0 MD INGREDI 8-20 Anderso 00:00: n 00 CODEINE DRUG Active Other 2018-0 MD INGREDI 8-20 Anderso 00:00: n 00 CODEINE DRUG Active Other 2018-0 MD INGREDI 8-20 Anderso 00:00: n 00 CODEINE DRUG Active Other 2018-0 MD INGREDI 8-20 Anderso 00:00: n 00 CODEINE DRUG Active Other 2018-0 MD INGREDI 8-20 Anderso 00:00: n 00 CODEINE DRUG Active Other 2018-0 MD INGREDI 8-20 Anderso 00:00: n 00 CODEINE DRUG Active Other 2018-0 MD INGREDI 8-20 Anderso 00:00: n 00 CODEINE DRUG Active Other 2018-0 MD INGREDI 8-20 Anderso 00:00: n 00 CODEINE DRUG Active Other 2018-0 MD INGREDI 8-20 Anderso 00:00: n 00 CODEINE DRUG Active Other 2018-0 MD INGREDI 8-20 Anderso 00:00: n 00 CODEINE DRUG Active Other 2018-0 MD INGREDI 8-20 Anderso 00:00: n 00 CODEINE DRUG Active Other 2018-0 MD INGREDI 8-20 Anderso 00:00: n 00 CODEINE DRUG Active Other 2018-0 MD INGREDI 8-20 Anderso 00:00: n 00 CODEINE DRUG Active Other 2018-0 MD INGREDI 8-20 Anderso 00:00: n 00 CODEINE DRUG Active Other 2018-0 MD INGREDI 8-20 Anderso 00:00: n 00 CODEINE DRUG Active Other 2018-0 MD INGREDI 8-20 Anderso 00:00: n 00 CODEINE DRUG Active Other 2018-0 MD INGREDI 8-20 Anderso 00:00: n 00 CODEINE DRUG Active Other 2018-0 MD INGREDI 8-20 Anderso 00:00: n 00 CODEINE DRUG Active Other 2018-0 MD INGREDI 8-20 Anderso 00:00: n 00 CODEINE DRUG Active Other 2018-0 MD INGREDI 8-20 Anderso 00:00: n 00 CODEINE DRUG Active Other 2018-0 MD INGREDI 8-20 Anderso 00:00: n 00 CODEINE DRUG Active Other 2018-0 MD INGREDI 8-20 Anderso 00:00: n 00 CODEINE DRUG Active Other 2018-0 MD INGREDI 8-20 Anderso 00:00: n 00 CODEINE DRUG Active Other 2018-0 MD INGREDI 8-20 Anderso 00:00: n 00 CODEINE DRUG Active Other 2018-0 MD INGREDI 8-20 Anderso 00:00: n 00 CODEINE DRUG Active Other 2018-0 MD INGREDI 8-20 Anderso 00:00: n 00 CODEINE DRUG Active Other 2018-0 MD INGREDI 8-20 Anderso 00:00: n 00 CODEINE DRUG Active Other 2018-0 MD INGREDI 8-20 Anderso 00:00: n 00 CODEINE DRUG Active Other 2018-0 MD INGREDI 8-20 Anderso 00:00: n 00 CODEINE DRUG Active Other 2018-0 MD INGREDI 8-20 Anderso 00:00: n 00 CODEINE DRUG Active Other 2018-0 MD INGREDI 8-20 Anderso 00:00: n 00 CODEINE DRUG Active Other 2018-0 MD INGREDI 8-20 Anderso 00:00: n 00 CODEINE DRUG Active Other 2018-0 MD INGREDI 8-20 Anderso 00:00: n 00 CODEINE DRUG Active Other 2018-0 MD INGREDI 8-20 Anderso 00:00: n 00 CODEINE DRUG Active Other 2018-0 MD INGREDI 8-20 Anderso 00:00: n 00 CODEINE DRUG Active Other 2018-0 MD INGREDI 8-20 Anderso 00:00: n 00 CODEINE DRUG Active Other 2018-0 MD INGREDI 8-20 Anderso 00:00: n 00 CODEINE DRUG Active Other 2018-0 MD INGREDI 8-20 Anderso 00:00: n 00 CODEINE DRUG Active Other 2018-0 MD INGREDI 8-20 Anderso 00:00: n 00 CODEINE DRUG Active Other 2018-0 MD INGREDI 8-20 Anderso 00:00: n 00 CODEINE DRUG Active Other 2018-0 MD INGREDI 8-20 Anderso 00:00: n 00 CODEINE DRUG Active Other 2018-0 MD INGREDI 8-20 Anderso 00:00: n 00 CODEINE DRUG Active Other 2018-0 MD INGREDI 8-20 Anderso 00:00: n 00 CODEINE DRUG Active Other 2018-0 MD INGREDI 8-20 Anderso 00:00: n 00 CODEINE DRUG Active Other 2018-0 MD INGREDI 8-20 Anderso 00:00: n 00 CODEINE DRUG Active Other 2018-0 MD INGREDI 8-20 Anderso 00:00: n 00 CODEINE DRUG Active Other 2018-0 MD INGREDI 8-20 Anderso 00:00: n 00 Codeine Propensi Active Other (See 2018-0 Nausea/vo Univers ty to Comments) 8-20 miting ity of adverse 00:00: [place] reaction 00 MD [facility] IODINATE Drug Active High Hives 2018-0 MD D Class 8-08 Anderso CONTRAST 00:00: n MEDIA 00 IODINATE Drug Active High Hives 2018-0 MD D Class 8-08 Anderso CONTRAST 00:00: n MEDIA 00 IODINATE Drug Active High Hives 2018-0 MD D Class 8-08 Anderso CONTRAST 00:00: n MEDIA 00 IODINATE Drug Active High Hives 2018-0 MD D Class 8-08 Anderso CONTRAST 00:00: n MEDIA 00 IODINATE Drug Active High Hives 2018-0 MD D Class 8-08 Anderso CONTRAST 00:00: n MEDIA 00 IODINATE Drug Active High Hives 2018-0 MD D Class 8-08 Anderso CONTRAST 00:00: n MEDIA 00 IODINATE Drug Active High Hives 2018-0 MD D Class 8-08 Anderso CONTRAST 00:00: n MEDIA 00 IODINATE Drug Active High Hives 2018-0 MD D Class 8-08 Anderso CONTRAST 00:00: n MEDIA 00 IODINATE Drug Active High Hives 2018-0 MD D Class 8-08 Anderso CONTRAST 00:00: n MEDIA 00 IODINATE Drug Active High Hives 2018-0 MD D Class 8-08 Anderso CONTRAST 00:00: n MEDIA 00 IODINATE Drug Active High Hives 2018-0 MD D Class 8-08 Anderso CONTRAST 00:00: n MEDIA 00 IODINATE Drug Active High Hives 2018-0 MD D Class 8-08 Anderso CONTRAST 00:00: n MEDIA 00 IODINATE Drug Active High Hives 2018-0 MD D Class 8-08 Anderso CONTRAST 00:00: n MEDIA 00 IODINATE Drug Active High Hives 2018-0 MD D Class 8-08 Anderso CONTRAST 00:00: n MEDIA 00 IODINATE Drug Active High Hives 2018-0 MD D Class 8-08 Anderso CONTRAST 00:00: n MEDIA 00 IODINATE Drug Active High Hives 2018-0 MD D Class 8-08 Anderso CONTRAST 00:00: n MEDIA 00 IODINATE Drug Active High Hives 2018-0 MD D Class 8-08 Anderso CONTRAST 00:00: n MEDIA 00 IODINATE Drug Active High Hives 2018-0 MD D Class 8-08 Anderso CONTRAST 00:00: n MEDIA 00 IODINATE Drug Active High Hives 2018-0 MD D Class 8-08 Anderso CONTRAST 00:00: n MEDIA 00 IODINATE Drug Active High Hives 2018-0 MD D Class 8-08 Anderso CONTRAST 00:00: n MEDIA 00 IODINATE Drug Active High Hives 2018-0 MD D Class 8-08 Anderso CONTRAST 00:00: n MEDIA 00 IODINATE Drug Active High Hives 2018-0 MD D Class 8-08 Anderso CONTRAST 00:00: n MEDIA 00 IODINATE Drug Active High Hives 2018-0 MD D Class 8-08 Anderso CONTRAST 00:00: n MEDIA 00 IODINATE Drug Active High Hives 2018-0 MD D Class 8-08 Anderso CONTRAST 00:00: n MEDIA 00 IODINATE Drug Active High Hives 2018-0 MD D Class 8-08 Anderso CONTRAST 00:00: n MEDIA 00 IODINATE Drug Active High Hives 2018-0 MD D Class 8-08 Anderso CONTRAST 00:00: n MEDIA 00 IODINATE Drug Active High Hives 2018-0 MD D Class 8-08 Anderso CONTRAST 00:00: n MEDIA 00 IODINATE Drug Active High Hives 2018-0 MD D Class 8-08 Anderso CONTRAST 00:00: n MEDIA 00 IODINATE Drug Active High Hives 2018-0 MD D Class 8-08 Anderso CONTRAST 00:00: n MEDIA 00 IODINATE Drug Active High Hives 2018-0 MD D Class 8-08 Anderso CONTRAST 00:00: n MEDIA 00 IODINATE Drug Active High Hives 2018-0 MD D Class 8-08 Anderso CONTRAST 00:00: n MEDIA 00 IODINATE Drug Active High Hives 2018-0 MD D Class 8-08 Anderso CONTRAST 00:00: n MEDIA 00 IODINATE Drug Active High Hives 2018-0 MD D Class 8-08 Anderso CONTRAST 00:00: n MEDIA 00 IODINATE Drug Active High Hives 2018-0 MD D Class 8-08 Anderso CONTRAST 00:00: n MEDIA 00 IODINATE Drug Active High Hives 2018-0 MD D Class 8-08 Anderso CONTRAST 00:00: n MEDIA 00 IODINATE Drug Active High Hives 2018-0 MD D Class 8-08 Anderso CONTRAST 00:00: n MEDIA 00 IODINATE Drug Active High Hives 2018-0 MD D Class 8-08 Anderso CONTRAST 00:00: n MEDIA 00 IODINATE Drug Active High Hives 2018-0 MD D Class 8-08 Anderso CONTRAST 00:00: n MEDIA 00 IODINATE Drug Active High Hives 2018-0 MD D Class 8-08 Anderso CONTRAST 00:00: n MEDIA 00 IODINATE Drug Active High Hives 2018-0 MD D Class 8-08 Anderso CONTRAST 00:00: n MEDIA 00 IODINATE Drug Active High Hives 2018-0 MD D Class 8-08 Anderso CONTRAST 00:00: n MEDIA 00 IODINATE Drug Active High Hives 2018-0 MD D Class 8-08 Anderso CONTRAST 00:00: n MEDIA 00 IODINATE Drug Active High Hives 2018-0 MD D Class 8-08 Anderso CONTRAST 00:00: n MEDIA 00 IODINATE Drug Active High Hives 2018-0 MD D Class 8-08 Anderso CONTRAST 00:00: n MEDIA 00 IODINATE Drug Active High Hives 2018-0 MD D Class 8-08 Anderso CONTRAST 00:00: n MEDIA 00 IODINATE Drug Active High Hives 2018-0 MD D Class 8-08 Anderso CONTRAST 00:00: n MEDIA 00 IODINATE Drug Active High Hives 2018-0 MD D Class 8-08 Anderso CONTRAST 00:00: n MEDIA 00 IODINATE Drug Active High Hives 2018-0 MD D Class 8-08 Anderso CONTRAST 00:00: n MEDIA 00 IODINATE Drug Active High Hives 2018-0 MD D Class 8-08 Anderso CONTRAST 00:00: n MEDIA 00 IODINATE Drug Active High Hives 2018-0 MD D Class 8-08 Anderso CONTRAST 00:00: n MEDIA 00 IODINATE Drug Active High Hives 2018-0 MD D Class 8-08 Anderso CONTRAST 00:00: n MEDIA 00 IODINATE Drug Active High Hives 2018-0 MD D Class 8-08 Anderso CONTRAST 00:00: n MEDIA 00 IODINATE Drug Active High Hives 2018-0 MD D Class 8-08 Anderso CONTRAST 00:00: n MEDIA 00 IODINATE Drug Active High Hives 2018-0 MD D Class 8-08 Anderso CONTRAST 00:00: n MEDIA 00 IODINATE Drug Active High Hives 2018-0 MD D Class 8-08 Anderso CONTRAST 00:00: n MEDIA 00 IODINATE Drug Active High Hives 2018-0 MD D Class 8-08 Anderso CONTRAST 00:00: n MEDIA 00 IODINATE Drug Active High Hives 2018-0 MD D Class 8-08 Anderso CONTRAST 00:00: n MEDIA 00 IODINATE Drug Active High Hives 2018-0 MD D Class 8-08 Anderso CONTRAST 00:00: n MEDIA 00 IODINATE Drug Active High Hives 2018-0 MD D Class 8-08 Anderso CONTRAST 00:00: n MEDIA 00 IODINATE Drug Active High Hives 2018-0 MD D Class 8-08 Anderso CONTRAST 00:00: n MEDIA 00 IODINATE Drug Active High Hives 2018-0 MD D Class 8-08 Anderso CONTRAST 00:00: n MEDIA 00 IODINATE Drug Active High Hives 2018-0 MD D Class 8-08 Anderso CONTRAST 00:00: n MEDIA 00 IODINATE Drug Active High Hives 2018-0 MD D Class 8-08 Anderso CONTRAST 00:00: n MEDIA 00 IODINATE Drug Active High Hives 2018-0 MD D Class 8-08 Anderso CONTRAST 00:00: n MEDIA 00 IODINATE Drug Active High Hives 2018-0 MD D Class 8-08 Anderso CONTRAST 00:00: n MEDIA 00 IODINATE Drug Active High Hives 2018-0 MD D Class 8-08 Anderso CONTRAST 00:00: n MEDIA 00 IODINATE Drug Active High Hives 2018-0 MD D Class 8-08 Anderso CONTRAST 00:00: n MEDIA 00 IODINATE Drug Active High Hives 2018-0 MD D Class 8-08 Anderso CONTRAST 00:00: n MEDIA 00 IODINATE Drug Active High Hives 2018-0 MD D Class 8-08 Anderso CONTRAST 00:00: n MEDIA 00 IODINATE Drug Active High Hives 2018-0 MD D Class 8-08 Anderso CONTRAST 00:00: n MEDIA 00 IODINATE Drug Active High Hives 2018-0 MD D Class 8-08 Anderso CONTRAST 00:00: n MEDIA 00 IODINATE Drug Active High Hives 2018-0 MD D Class 8-08 Anderso CONTRAST 00:00: n MEDIA 00 IODINATE Drug Active High Hives 2018-0 MD D Class 8-08 Anderso CONTRAST 00:00: n MEDIA 00 IODINATE Drug Active High Hives 2018-0 MD D Class 8-08 Anderso CONTRAST 00:00: n MEDIA 00 IODINATE Drug Active High Hives 2018-0 MD D Class 8-08 Anderso CONTRAST 00:00: n MEDIA 00 IODINATE Drug Active High Hives 2018-0 MD D Class 8-08 Anderso CONTRAST 00:00: n MEDIA 00 IODINATE Drug Active High Hives 2018-0 MD D Class 8-08 Anderso CONTRAST 00:00: n MEDIA 00 IODINATE Drug Active High Hives 2018-0 MD D Class 8-08 Anderso CONTRAST 00:00: n MEDIA 00 IODINATE Drug Active High Hives 2018-0 MD D Class 8-08 Anderso CONTRAST 00:00: n MEDIA 00 IODINATE Drug Active High Hives 2018-0 MD D Class 8-08 Anderso CONTRAST 00:00: n MEDIA 00 IODINATE Drug Active High Hives 2018-0 MD D Class 8-08 Anderso CONTRAST 00:00: n MEDIA 00 IODINATE Drug Active High Hives 2018-0 MD D Class 8-08 Anderso CONTRAST 00:00: n MEDIA 00 IODINATE Drug Active High Hives 2018-0 MD D Class 8-08 Anderso CONTRAST 00:00: n MEDIA 00 IODINATE Drug Active High Hives 2018-0 MD D Class 8-08 Anderso CONTRAST 00:00: n MEDIA 00 IODINATE Drug Active High Hives 2018-0 MD D Class 8-08 Anderso CONTRAST 00:00: n MEDIA 00 IODINATE Drug Active High Hives 2018-0 MD D Class 8-08 Anderso CONTRAST 00:00: n MEDIA 00 IODINATE Drug Active High Hives 2018-0 MD D Class 8-08 Anderso CONTRAST 00:00: n MEDIA 00 IODINATE Drug Active High Hives 2018-0 MD D Class 8-08 Anderso CONTRAST 00:00: n MEDIA 00 IODINATE Drug Active High Hives 2018-0 MD D Class 8-08 Anderso CONTRAST 00:00: n MEDIA 00 IODINATE Drug Active High Hives 2018-0 MD D Class 8-08 Anderso CONTRAST 00:00: n MEDIA 00 IODINATE Drug Active High Hives 2018-0 MD D Class 8-08 Anderso CONTRAST 00:00: n MEDIA 00 IODINATE Drug Active High Hives 2018-0 MD D Class 8-08 Anderso CONTRAST 00:00: n MEDIA 00 IODINATE Drug Active High Hives 2018-0 MD D Class 8-08 Anderso CONTRAST 00:00: n MEDIA 00 IODINATE Drug Active High Hives 2018-0 MD D Class 8-08 Anderso CONTRAST 00:00: n MEDIA 00 IODINATE Drug Active High Hives 2018-0 MD D Class 8-08 Anderso CONTRAST 00:00: n MEDIA 00 IODINATE Drug Active High Hives 2018-0 MD D Class 8-08 Anderso CONTRAST 00:00: n MEDIA 00 IODINATE Drug Active High Hives 2018-0 MD D Class 8-08 Anderso CONTRAST 00:00: n MEDIA 00 IODINATE Drug Active High Hives 2018-0 MD D Class 8-08 Anderso CONTRAST 00:00: n MEDIA 00 IODINATE Drug Active High Hives 2018-0 MD D Class 8-08 Anderso CONTRAST 00:00: n MEDIA 00 IODINATE Drug Active High Hives 2018-0 MD D Class 8-08 Anderso CONTRAST 00:00: n MEDIA 00 IODINATE Drug Active High Hives 2018-0 MD D Class 8-08 Anderso CONTRAST 00:00: n MEDIA 00 IODINATE Drug Active High Hives 2018-0 MD D Class 8-08 Anderso CONTRAST 00:00: n MEDIA 00 IODINATE Drug Active High Hives 2018-0 MD D Class 8-08 Anderso CONTRAST 00:00: n MEDIA 00 IODINATE Drug Active High Hives 2018-0 MD D Class 8-08 Anderso CONTRAST 00:00: n MEDIA 00 IODINATE Drug Active High Hives 2018-0 MD D Class 8-08 Anderso CONTRAST 00:00: n MEDIA 00 IODINATE Drug Active High Hives 2018-0 MD D Class 8-08 Anderso CONTRAST 00:00: n MEDIA 00 IODINATE Drug Active High Hives 2018-0 MD D Class 8-08 Anderso CONTRAST 00:00: n MEDIA 00 IODINATE Drug Active High Hives 2018-0 MD D Class 8-08 Anderso CONTRAST 00:00: n MEDIA 00 IODINATE Drug Active High Hives 2018-0 MD D Class 8-08 Anderso CONTRAST 00:00: n MEDIA 00 IODINATE Drug Active High Hives 2018-0 MD D Class 8-08 Anderso CONTRAST 00:00: n MEDIA 00 IODINATE Drug Active High Hives 2018-0 MD D Class 8-08 Anderso CONTRAST 00:00: n MEDIA 00 IODINATE Drug Active High Hives 2018-0 MD D Class 8-08 Anderso CONTRAST 00:00: n MEDIA 00 IODINATE Drug Active High Hives 2018-0 MD D Class 8-08 Anderso CONTRAST 00:00: n MEDIA 00 IODINATE Drug Active High Hives 2018-0 MD D Class 8-08 Anderso CONTRAST 00:00: n MEDIA 00 IODINATE Drug Active High Hives 2018-0 MD D Class 8-08 Anderso CONTRAST 00:00: n MEDIA 00 IODINATE Drug Active High Hives 2018-0 MD D Class 8-08 Anderso CONTRAST 00:00: n MEDIA 00 IODINATE Drug Active High Hives 2018-0 MD D Class 8-08 Anderso CONTRAST 00:00: n MEDIA 00 IODINATE Drug Active High Hives 2018-0 MD D Class 8-08 Anderso CONTRAST 00:00: n MEDIA 00 IODINATE Drug Active High Hives 2018-0 MD D Class 8-08 Anderso CONTRAST 00:00: n MEDIA 00 IODINATE Drug Active High Hives 2018-0 MD D Class 8-08 Anderso CONTRAST 00:00: n MEDIA 00 IODINATE Drug Active High Hives 2018-0 MD D Class 8-08 Anderso CONTRAST 00:00: n MEDIA 00 IODINATE Drug Active High Hives 2018-0 MD D Class 8-08 Anderso CONTRAST 00:00: n MEDIA 00 IODINATE Drug Active High Hives 2018-0 MD D Class 8-08 Anderso CONTRAST 00:00: n MEDIA 00 IODINATE Drug Active High Hives 2018-0 MD D Class 8-08 Anderso CONTRAST 00:00: n MEDIA 00 IODINATE Drug Active High Hives 2018-0 MD D Class 8-08 Anderso CONTRAST 00:00: n MEDIA 00 IODINATE Drug Active High Hives 2018-0 MD D Class 8-08 Anderso CONTRAST 00:00: n MEDIA 00 IODINATE Drug Active High Hives 2018-0 MD D Class 8-08 Anderso CONTRAST 00:00: n MEDIA 00 IODINATE Drug Active High Hives 2018-0 MD D Class 8-08 Anderso CONTRAST 00:00: n MEDIA 00 IODINATE Drug Active High Hives 2018-0 MD D Class 8-08 Anderso CONTRAST 00:00: n MEDIA 00 IODINATE Drug Active High Hives 2018-0 MD D Class 8-08 Anderso CONTRAST 00:00: n MEDIA 00 IODINATE Drug Active High Hives 2018-0 MD D Class 8-08 Anderso CONTRAST 00:00: n MEDIA 00 IODINATE Drug Active High Hives 2018-0 MD D Class 8-08 Anderso CONTRAST 00:00: n MEDIA 00 IODINATE Drug Active High Hives 2018-0 MD D Class 8-08 Anderso CONTRAST 00:00: n MEDIA 00 IODINATE Drug Active High Hives 2018-0 MD D Class 8-08 Anderso CONTRAST 00:00: n MEDIA 00 IODINATE Drug Active High Hives 2018-0 MD D Class 8-08 Anders[facility] CONTRAST 00:00: n MEDIA 00 IODINATE Drug Active High Hives 2018-0 MD D Class 8-08 [place] CONTRAST 00:00: n MEDIA 00 IODINATE Drug Active High Hives 2018-0 MD D Class 8-08 [place] CONTRAST 00:00: n MEDIA 00 IODINATE Drug Active High Hives 2018-0 MD D Class 8-08 [place] CONTRAST 00:00: n MEDIA 00 IODINATE Drug Active High Hives 2018-0 MD D Class 8-08 [place] CONTRAST 00:00: n MEDIA 00 IODINATE Drug Active High Hives 2018-0 MD D Class 8-08 [place] CONTRAST 00:00: n MEDIA 00 IODINATE Drug Active High Hives 2018-0 MD D Class 8-08 [place] CONTRAST 00:00: n MEDIA 00 IODINATE Drug Active High Hives 2018-0 MD D Class 8-08 [place] CONTRAST 00:00: n MEDIA 00 IODINATE Drug Active High Hives 2018-0 MD D Class 8-08 [place] CONTRAST 00:00: n MEDIA 00 IODINATE Drug Active High Hives 2018-0 MD D Class 8-08 [place] CONTRAST 00:00: n MEDIA 00 IODINATE Drug Active High Hives 2018-0 MD D Class 8-08 [place] CONTRAST 00:00: n MEDIA 00 IODINATE Drug Active High Hives 2018-0 MD D Class 8-08 [place] CONTRAST 00:00: n MEDIA 00 IODINATE Drug Active High Hives 2018-0 MD D Class 8-08 [place] CONTRAST 00:00: n MEDIA 00 IODINATE Drug Active High Hives 2018-0 MD D Class 8-08 [place] CONTRAST 00:00: n MEDIA 00 IODINATE Drug Active High Hives 2018-0 MD D Class 8-08 [place] CONTRAST 00:00: n MEDIA 00 IODINATE Drug Active High Hives 2018-0 MD D Class 8-08 [place] CONTRAST 00:00: n MEDIA 00 IODINATE Drug Active High Hives 2018-0 MD D Class 8-08 [place] CONTRAST 00:00: n MEDIA 00 IODINATE Drug Active High Hives 2018-0 MD D Class 8-08 [place] CONTRAST 00:00: n MEDIA 00 IODINATE Drug Active High Hives 2018-0 MD D Class 8-08 [place] CONTRAST 00:00: n MEDIA 00 IODINATE Drug Active High Hives 2018-0 MD D Class 8-08 [place] CONTRAST 00:00: n MEDIA 00 IODINATE Drug Active High Hives 2018-0 MD D Class 8-08 [place] CONTRAST 00:00: n MEDIA 00 IODINATE Drug Active High Hives 2018-0 MD D Class 8-08 [place] CONTRAST 00:00: n MEDIA 00 IODINATE Drug Active High Hives 2018-0 MD D Class 8-08 [place] CONTRAST 00:00: n MEDIA 00 IODINATE Drug Active High Hives 2018-0 MD D Class 8-08 [place] CONTRAST 00:00: n MEDIA 00 IODINATE Drug Active High Hives 2018-0 MD D Class 8-08 [place] CONTRAST 00:00: n MEDIA 00 IODINATE Drug Active High Hives 2018-0 MD D Class 8-08 [place] CONTRAST 00:00: n MEDIA 00 IODINATE Drug Active High Hives 2018-0 MD D Class 8-08 [place] CONTRAST 00:00: n MEDIA 00 IODINATE Drug Active High Hives 2018-0 MD D Class 8-08 [place] CONTRAST 00:00: n MEDIA 00 Iodinate Drug Active Other (See Pt Univ ers d Allergy Comments) 12-25 reported ity of Contrast 00:00: generaliz [place] [employer] 00 ed lei PABLO and Anderso itchiness n , Cancer swelling Center on the tongue , no SOB noted which happened outside facility. On 07/29/2018 -pt is premedica yessenia with 13 hour and benadryl 25 mg Tolerates constrast with nephrosto my exchanges .09/25/20 CT scan NO IV Contrast, Barium "banana" given for oral contrast Aspirin drug Active Vomiting [place] TABS allergy [facility] ans codeine drug Active Rash, [place] allergy Itching [facility] ans Ibuprofe drug Active Nausea [place] n TABS allergy [facility] ans Iodinate drug Active Hives [place] d allergy [facility] Contrast ans Media Family History Family Member Diagnosis Comments Start Date Stop Date Source Maternal Glaucoma [facility] MD Rory Florez r [place] Natural mother Diabetes [facility] MD Rory Fl[place] Natural mother Glaucoma [facility] MD Rory Florez r [place] Family member Macular University of degeneration [place] MD Rory Florez r [place] Unknown Family Family history of Multiple [facility] Member diabetes mellitus Family Members Social History Social Habit Start Date Stop Date Quantity Comments Source History of tobacco Current smoker Un iversity of use [place] MD Apollo dye [facility] Exposure to 2022-03-10 2022-03-20 Not sure University SARS-CoV-2 (event) 00:00:00 13:39:00 [facility] Alcohol intake 2022-01-16 2022-01-16 Ex-drinker University 00:00:00 00:00:00 (finding) [place] MD Apollo dye [facility] Cigarettes smoked 2020-04-25 2020-04-25 Univers ity of current (pack per 00:00:00 00:00:00 [place] Maisha Valadez ) - Reported Cancer Ce nter Cigarette 2020-04-25 2020-04-25 University of pack-years 00:00:00 00:00:00 [place] MD Apollo dye [facility] Tobacco use and 2020-04-25 2020-04-25 Smokeless Universit y of exposure 00:00:00 00:00:00 tobacco non-user [facility] Alcohol Comment 2020-04-25 2020-04-25 only drink about Uni versity of 00:00:00 00:00:00 once per month Bon crenshaw [facility] Sex [birth year] At [birth year] Universit y of 00:00:00 00:00:00 Bon dye [facility] Smoking Status Start Date Stop Date Source Ex-smoker 2020-04-25 00:00:00 2020-04-25 00:00:00 Universi ty of [facility] Medications Ordered Filled Start Stop Current Ordering Indication Dosage Frequency Signature Comments Components Source Medication Medication Date Date Medication? Clinician (SIG) Name Name acetaminoph 2021-05 Yes Neoplasm 1{tbl} Take 1 Univers en-codeine 05-20 related tablet by i ty of (TYLENOL 00:00: pain mouth [place] #3) 300 00 (acute) daily as MD mg-30 mg (chronic) needed for [place] tablet moderate n pain. Cancer Center NIFEdipine 2021- No Pyelonephri 30mg Take 1 Univers (PROCARDIA 01-07 tis tablet (30 it y of XL) 30 mg 00:00: 04:59 mg) by [place] 24 hr 00 :00 mouth tablet daily for Anderso 30 days. n Cancer Center lidocaine Yes Pyelonephri 1{patch Place 1 Univers (LIDODERM) - tis } patch on ity o f 5% (700 00:00: the skin [place] mg/patch) 00 daily. transdermal Remove & Iftikhar rso patch Discard n patch Cancer within 12 Center hours or as directed by . Remove old patch(es) before replacing new patch(es). polyethylen 2021- No Chronic 17g Take 17 g Univers e glycol 01-06 pain by mouth ity of (MIRALAX) 00:00: 04:59 [place] 17 g packet 00 :00 30 days. MD Douglas n Cancer [place] senna 2021- No Pyelonephri 2{tbl} Take 2 Univers (SENOKOT) 01-06 tis tablets by ity of 8.6 mg 00:00: 04:59 mouth [place] tablet 00 :00 twice MD daily for Anderso 30 days. n Cancer [place] ciprofloxac 2021- No Pyelonephri 500mg Take 1 Univers in HCl 01-06 tis tablet ity of (Cipro) 500 00:00: 04:59 (500 mg) [place] mg tablet 00 :00 by mouth twice [place] daily for n 10 days. Cancer Center amoxicillin 2021- No Pyelonephri 500mg Take 1 Univers (AMOXIL) 01-06 tis capsule ity of 500 mg 00:00: 04:59 (500 mg) [place] capsule 00 :00 by mouth 3 MD (three) [place] times a n day for 10 Cancer days. [place] acetaminoph 2021- No Neoplasm 1{tbl} Take 1 Univers en-codeine 11-23 related tablet by ity of (TYLENOL 00:00: 00:00 pain mouth 3 [place] #3) 300 00 :00 (acute) (three) MD mg-30 mg (chronic) times a And erso tablet day as n needed for Cancer moderate Center pain. ciprofloxac 2021- No Recurrent 500mg Take 1 Univers in HCl 5-16 08-16 urinary tablet ity of (CIPRO) 500 00:00: 00:00 tract (500 mg) [place] mg tablet 00 :00 infection by mouth M D twice Anderso daily. n [facility] amoxicillin 2021- No Recurrent 875mg Take 1 Univers -clavulanat 2-14 08-16 urinary tablet it y of e 00:00: 00:00 tract (875 mg) [place] (Augmentin) 00 :00 infection by mouth 875 mg-125 twice [place] mg per daily. n tablet [facility] ciprofloxac 2021- No Recurrent 250mg Take 1 Univers in HCl 2-14 -16 urinary tablet ity of (Cipro) 250 00:00: 00:00 tract (250 mg) [place] mg tablet 00 :00 infection by mouth M D twice [place] daily. n [facility] ciprofloxac 2021- No Recurrent 500mg Take 1 Univers in HCl 2-04 -21 urinary tablet ity of (CIPRO) 500 00:00: 05:59 tract (500 mg) [place] mg tablet 00 :00 infection by mouth M D twice Anders[place] daily for n 16 days. [facility] ciprofloxac 2020-05- No Recurrent 500mg Take 1 Univers in HCl 2-14 02-04 urinary tablet ity of (CIPRO) 500 00:00: 00:00 tract (500 mg) [place] mg tablet 00 :00 infection by mouth M D twice Anderso daily. n [facility] acetaminoph 2020-05- No Neoplasm 1{tbl} Take 1 Univers en-codeine 05-31-07 related tablet by ity of (TYLENOL 00:00: 00:00 pain mouth 3 [place] #3) 300 00 :00 (acute) (three) MD mg-30 mg (chronic) times a And erso tablet day as n needed for Cancer moderate Center pain. multivitami 2020-05- No 1{tbl} Take 1 U nivers n 05-27 tablet by ity of (multivitam 17:51: 00:00 mouth [place] in) tablet 45 :00 daily. MD [facility] acetaminoph 2020-05- No Neoplasm 1{tbl} Take 1 Univers en-codeine 012 related tablet by ity of (TYLENOL 00:00: 00:00 pain mouth 3 [place] #3) 300 00 :00 (acute) (three) MD mg-30 mg (chronic) times a And erso tablet day as n needed for Cancer moderate Center pain. amoxicillin 2020-05- No Recurrent 500mg Take 1 Univers (AMOXIL) 0-18 11-08 urinary capsule ity of 500 mg 00:00: 00:00 tract (500 mg) [place] capsule 00 :00 infection by mouth MD twice [place] daily. n Cancer Center levoFLOXaci 2020-05- No Recurrent 250mg Take 1 Univers n 0-18 08 urinary tablet ity of (LEVAQUIN) 00:00: 00:00 tract (250 mg) [place] 250 mg 00 :00 infection by mouth tablet daily. [facility] pantoprazol 2021- No Gastro-esop 20mg Take 1 Univers e 5-24 08-16 hageal tablet (20 ity of (Protonix) 00:00: 00:00 reflux mg[place] by [place] 20 mg EC 00 :00 disease mouth MD tablet without daily with Iftikhar rso esophagitis breakfast. n , not Cancer otherwise Center specified albuterol 2020- No Cough 1{puff} Inhale 1 Univers (VENTOLIN 1-05 08 puff by ity of HFA,PROAIR 00:00: 00:00 mouth [place] HFA) 90 00 :00 every 6 MD mcg/puff (six) Anders[place] inhaler hours as n needed for Cancer wheezing Center or shortness of breath. Lidocaine 5 Lidocaine 5 2018- Yes JOSE L APPLY 1 [place] % External % External 3-19 HEATH PATCH TO [facility] Patch Patch 00:00: N.P. THE ans 00 AFFECTED AREA AND LEAVE IN PLACE FOR 12 HOURS, THEN REMOVE AND LEAVE OFF FOR 12 HOURS. Immunizations Ordered Filled Immunization Date Status Comments Sour e Immunization Name Name HubChilla SARS-CoV-2 2021-01-07 Completed Univer sity of Vaccination (Purple 00:00:00 [facility] Pfizer SARS-CoV-2 2020-12-10 Completed Univer sity of Vaccination (Purple 00:00:00 [facility] Vital Signs Vital Name Observation Time Observation Value Comments Source HEIGHT 2020-10-10 166 cm 11:28:00 WEIGHT 2020-10-10 71.4 kg 11:28:00 WEIGHT 2020-08-27 68.2 kg 00:32:00 HEIGHT 2020-08-26 166 cm 01:11:00 WEIGHT 2020-07-11 71 kg 09:33:00 WEIGHT 2020-05-30 71 kg 11:04:00 WEIGHT 2020-05-02 72.122 kg 11:44:00 WEIGHT 2020-04-25 70 kg 08:14:00 HEIGHT 2020-04-18 166 cm 10:26:00 WEIGHT 2020-04-18 72.4 kg 10:26:00 WEIGHT 2020-03-16 67.4 kg 06:57:00 HEIGHT 2020-03-14 165 cm 20:22:00 HEIGHT 2019-12-17 165.1 cm 13:26:09 WEIGHT 2019-12-17 73.6 kg 13:26:09 Systolic blood 2022-03-20 167 mm[Hg] University of pressure 19:20:00 [facility] Diastolic blood 2022-03-20 97 mm[Hg] University o f pressure 19:20:00 [facility] Heart rate 2022-03-20 64 /min [facility] 19:20:00 [facility] Body temperature 2022-03-[address] [facility] 19:20:00 [facility] Respiratory rate 2022-03-20 16 /min [facility] 19:20:00 [facility] Oxygen saturation 2022-03-12 100 /min [facility] in Arterial blood 15:24:05 [facility] by Pulse oximetry [facility] Body weight 2022-03-[address] [facility] 15:16:00 [facility] BMI 2022-03-12 25.97 kg/m2 University 15:16:00 [facility] Body height 2022-01-[address] [facility] 20:40:00 [facility] BP Systolic 2017-08-05 127 mm[Hg] Location: LUE; [facility] 13:33:00 Position: Sitting BP Diastolic 2017-08-05 70 mm[Hg] Location: LUE; [facility] 13:33:00 Position: Sitting Height 2017-08-05 64.61 [in_us] [facility] 13:33:00 Weight 2017-08-05 149.0375 [lb_av] [facility] 13:33:00 Body Mass Index 2017-08-05 25.1 kg/m2 [facility] Calculated 13:33:00 Temperature 2017-08-05 98.5 [degF] Method: Oral [facility] 13:33:00 Heart Rate 2017-08-05 76 /min Location: L [facility] 13:33:00 Brachial Artery; Quality: Normal O2 SAT 2017-08-05 99 % [facility] 13:33:00 BP Systolic 2017-07-22 134 mm[Hg] Location: RUE; [facility] 10:58:00 Position: Sitting BP Diastolic 2017-07-22 83 mm[Hg] Location: RUE; [facility] 10:58:00 Position: Sitting Height 2017-07-22 65 [in_us] [facility] 10:58:00 Weight 2017-07-22 148 [lb_av] [facility] 10:58:00 Body Mass Index 2017-07-22 24.63 kg/m2 [facility] Calculated 10:58:00 Temperature 2017-07-22 98.5 [degF] Method: Oral [facility] 10:58:00 Heart Rate 2017-07-22 64 /min [facility] 10:58:00 Respiration Rate 2017-07-22 18 /min [facility] 10:58:00 BP Systolic 2017-06-17 178 mm[Hg] Location: RUE; [facility] 08:15:00 Position: Sitting BP Diastolic 2017-06-17 112 mm[Hg] Location: RUE; [facility] 08:15:00 Position: Sitting Height 2017-06-17 65 [in_us] [facility] 08:15:00 Weight 2017-06-17 155 [lb_av] [facility] 08:15:00 Body Mass Index 2017-06-17 25.79 kg/m2 [facility] Calculated 08:15:00 Temperature 2017-06-17 98.4 [degF] Method: Oral [facility] 08:15:00 Heart Rate 2017-06-17 74 /min [facility] 08:15:00 Respiration Rate 2017-06-17 18 /min [facility] 08:15:00 BP Systolic 2017-04-22 154 mm[Hg] Location: RUE; [facility] 08:58:00 Position: Sitting BP Diastolic 2017-04-22 90 mm[Hg] Location: RUE; [facility] 08:58:00 Position: Sitting Height 2017-04-22 65 [in_us] [facility] 08:58:00 Weight 2017-04-22 155 [lb_av] [facility] 08:58:00 Body Mass Index 2017-04-22 25.79 kg/m2 [facility] Calculated 08:58:00 Temperature 2017-04-22 97.5 [degF] Method: Oral [facility] 08:58:00 Heart Rate 2017-04-22 64 /min [facility] 08:58:00 Respiration Rate 2017-04-22 18 /min [facility] 08:58:00 Procedures Procedure Date / Time Performing Clinician Source Performed CT NECK WO CONTRAST 2022-03-11 16:02:00 Dwayne Liu [facility] LYMPHOMA [facility] CT CHEST ABDOMEN PELVIS WO 2022-03-11 16:02:00 Dwayne Liu [facility] CONTRAST LYMPHOMA [facility] COMPLETE BLOOD COUNT W/ 2022-03-11 12:27:00 Dwayne Liu [facility] DIFFERENTIAL [facility] COMPREHENSIVE METABOLIC 2022-03-11 12:27:00 Dwayne Liu [facility] PANEL [facility] MAGNESIUM LEVEL 2022-03-11 12:27:00 Dwayne Liu [facility] PHOSPHORUS LEVEL 2022-03-11 12:27:00 Dwayne Liu [facility] LACTATE DEHYDROGENASE 2022-03-11 12:27:00 Dwayne Liu [facility] URIC ACID 2022-03-11 12:27:00 [facility] Results CBC 2022-03-11 12:27:00 Dwayne [facility] MANUAL DIFFERENTIAL 2022-03-11 12:27:00 Dwayne Liu [facility] GLUCOSE LEVEL 2022-03-11 12:27:00 Dwayne Liu o [facility] BLOOD UREA NITROGEN 2022-03-11 12:27:00 Dwayne Liu [facility] ELECTROLYTE PANEL 2022-03-11 12:27:00 Dwayne Liu [facility] SERUM CREATININE 2022-03-11 12:27:00 Dwayne Liu [facility] .GLOMERULAR FILTRATION RATE 2022-03-11 12:27:00 Dwayne Liu [facility] CALCIUM LEVEL TOTAL 2022-03-11 12:27:00 Dwayne Liu [facility] ALBUMIN LEVEL 2022-03-11 12:27:00 Dwayne [facility] ALKALINE PHOSPHATASE 2022-03-11 12:27:00 Dwayne Liu [facility] ALANINE AMINOTRANSFERASE 2022-03-11 12:27:00 Dwayne Liu [facility] ASPARTATE AMINOTRANSFERASE 2022-03-11 12:27:00 [facility] T[facility] PROTEIN 2022-03-11 12:27:00 Dwayne Liu [facility] FRACTIONATED BILIRUBIN 2022-03-11 12:27:00 Dwayne [facility] [place] PORTABLE FLUOROSCOPY 2022-01-10 20:23:[address] [facility] CYSTOURETHROSCOPY, WITH 2022-01-10 19:09:00 Shreif Husain [facility] REMOVAL OF FOREIGN BODY, MD [facility] CALCULUS, OR URETERAL STENT Cent er FROM URETHRA OR BLADDER COVID-19 (SARS-COV-2) 2022-01-08 14:43:00 Sherif Husain [facility] PCR ASYMPTOMATIC [facility] COMPLETE BLOOD COUNT W/ 2022-01-08 14:18:00 Dwayne Liu [facility] DIFFERENTIAL [facility] COMPREHENSIVE METABOLIC 2022-01-08 14:18:00 Dwayne Liu [facility] PANEL [facility] MAGNESIUM LEVEL 2022-01-08 14:18:00 Dwayne Liu [facility] PHOSPHORUS LEVEL 2022-01-08 14:18[facility]00 [facility] DEHYDROGENASE 2022-01-08 14:18:00 Dwayne Liu [facility] URIC ACID 2022-01-08 14:18:00 Noe Dwayne [facility] TYPE AND SCREEN 2022-01-08 14:18:00 Sherif Husain [facility] Results CBC 2022-01-08 14:18:00 Noe Dwayne [facility] MANUAL DIFFERENTIAL 2022-01-08 14:18[facility] GLUCOSE LEVEL 2022-01-08 14:18:00 Noe Dwayne [facility] BLOOD UREA NITROGEN 2022-01-08 14:18:00 Noe Dwayne [facility] ELECTROLYTE PANEL 2022-01-08 14:18:00 [facility]INE 2022-01-08 14:18[facility]00 [facility] .GLOMERULAR FILTRATION RATE 2022-01-08 14:18:00 Dwayne Liu [facility] CALCIUM LEVEL TOTAL 2022-01-08 14:18:00 Dwayne Liu [facility] ALBUMIN LEVEL 2022-01-08 14:18:00 Dwayne Liu [facility] ALKALINE PHOSPHATASE 2022-01-08 14:18:00 Dwayne Liu [facility] ALANINE AMINOTRANSFERASE 2022-01-08 14:18:00 Dwayne Liu [facility] ASPARTATE AMINOTRANSFERASE 2022-01-08 14:18:00 [facility] TOTAL PROTEIN 2022-01-08 14:18:00 Dwayne Liu [facility] FRACTIONATED BILIRUBIN 2022-01-08 14:18:00 Dwayne Liu [facility] ABORH 2022-01-08 14:18:00 Sherif Husain [facility] ANTIBODY SCREEN 2022-01-08 14:18:00 Sherif Husain [facility] TMP INTERPRETATION ANTIBODY 2022-01-08 14:18:00 Sherif Husain [facility] SCREEN NEGATIVE [facility] CLOT EXPIRATION DATE 2022-01-08 14:18:00 Sherif Husain [facility] COMPLETE BLOOD COUNT W/ 2022-01-06 13:24:00 Jaden abdullahi [facility] DIFFERENTIAL [facility] COMPREHENSIVE METABOLIC 2022-01-06 13:24:00 Ayala Stanley [facility] PANEL [facility] MAGNESIUM LEVEL 2022-01-06 13:24:00 Jaden [facility] PHOSPHORUS LEVEL 2022-01-06 13:24:00 Jaden [facility] Results CBC 2022-01-06 13:24:00 Jaden abdullahi [facility] MANUAL DIFFERENTIAL 2022-01-06 13:24:00 Jaden abdullahi [facility] GLUCOSE LEVEL 2022-01-06 13:24:00 Jaden abdullahi [facility] BLOOD UREA NITROGEN 2022-01-06 13:24:00 Jaden abdullahi [facility] ELECTROLYTE PANEL 2022-01-06 13:24:00 Jaden [facility] SERUM CREATININE 2022-01-06 13:24:00 Jaden [facility] .GLOMERULAR FILTRATION RATE 2022-01-06 13:24:00 Jaden abdullahi [facility] CALCIUM LEVEL TOTAL 2022-01-06 13:24:00 Jaden [facility] ALBUMIN LEVEL 2022-01-06 13:24:00 [facility] ALKALINE PHOSPHATASE 2022-01-06 13:24:00 Ayala Stanley Univers ity [facility] ALANINE AMINOTRANSFERASE 2022-01-06 13:24:00 Ayala [facility] ASPARTATE AMINOTRANSFERASE 2022-01-06 13:24:00 Ayala Stanley U niversity [facility] TOTAL PROTEIN 2022-01-06 13:24:00 Ayala Stanley [place] [facility] FRACTIONATED BILIRUBIN 2022-01-06 13:24:00 Ayala Stanley [facility] IR NEPHROSTOMY EXCHANGE 2022-01-05 15:03:00 DudleyEileen francisnh T Univ [facility] COMPLETE BLOOD COUNT W/ 2022-01-05 10:37:00 Ayala Stanley [facility] DIFFERENTIAL [facility] COMPREHENSIVE METABOLIC 2022-01-05 10:37:00 Ayala Stanley [facility] PANEL [facility] MAGNESIUM LEVEL 2022-01-05 10:37:00 Jaden abdullahi [facility] PHOSPHORUS LEVEL 2022-01-05 10:37:00 Jaden abdullahi [facility] Results CBC 2022-01-05 10:37:00 Ayala Stanley [facility] MANUAL DIFFERENTIAL 2022-01-05 10:37:00 Ayala Stanley [facility] GLUCOSE LEVEL 2022-01-05 10:37:00 Jaden abdullahi [facility] BLOOD UREA NITROGEN 2022-01-05 10:37:00 Ayala Stanley [facility] ELECTROLYTE PANEL 2022-01-05 10:37:00 Jaden abdullahi [facility] SERUM CREATININE 2022-01-05 10:37:00 Jaden [facility] .GLOMERULAR FILTRATION RATE 2022-01-05 10:37:00 Jaden [facility] CALCIUM LEVEL TOTAL 2022-01-05 10:37:00 Ayala Stanley [facility] ALBUMIN LEVEL 2022-01-05 10:37:00 Ayala Stanley [facility] ALKALINE PHOSPHATASE 2022-01-05 10:37:00 Ayala Stanley [facility] ALANINE AMINOTRANSFERASE 2022-01-05 10:37:00 Ayala [facility] ASPARTATE AMINOTRANSFERASE 2022-01-05 10:37:00 [facility]ala [facility] TOTAL PROTEIN 2022-01-05 10:37:00 Ayala Stanley [facility] FRACTIONATED BILIRUBIN 2022-01-05 10:37:00 Ayala Stanley [facility] COMPLETE BLOOD COUNT W/ 2022-01-04 09:22:00 Ayala Stanley [facility] DIFFERENTIAL [facility] COMPREHENSIVE METABOLIC 2022-01-04 09:22:00 Jaden abdullahi [facility] PANEL [facility] MAGNESIUM LEVEL 2022-01-04 09:22:00 Jaden abdullahi [facility] PHOSPHORUS LEVEL 2022-01-04 09:22:00 Jaden [facility] Results CBC 2022-01-04 09:22:00 Ayala Stanley [facility] MANUAL DIFFERENTIAL 2022-01-04 09:22:00 Ayala Stanley [facility] GLUCOSE LEVEL 2022-01-04 09:22:00 Jaden abdullahi [facility] BLOOD UREA NITROGEN 2022-01-04 09:22:00 Jaden abdullahi [facility] ELECTROLYTE PANEL 2022-01-04 09:22:00 Jaden abdullahi [facility] SERUM CREATININE 2022-01-04 09:22:00 Jaden [facility] .GLOMERULAR FILTRATION RATE 2022-01-04 09:22:00 Ayala Stanley [facility] CALCIUM LEVEL TOTAL 2022-01-04 09:22:00 Ayala Stanley [facility] ALBUMIN LEVEL 2022-01-04 09:22:00 Ayala Stanley [place] [facility] ALKALINE PHOSPHATASE 2022-01-04 09:22:00 Ayala Stanley [facility] ALANINE AMINOTRANSFERASE 2022-01-04 09:22:00 Ayala [facility] ASPARTATE AMINOTRANSFERASE 2022-01-04 09:22:00 Ayala [facility] TOTAL PROTEIN 2022-01-04 09:22:00 Ayala Stanley [facility] FRACTIONATED BILIRUBIN 2022-01-04 09:22:00 Ayala Stanley [facility] XR ABDOMEN AP 2022-01-03 16:30:56 DudleyFeli francis [facility] COMPLETE BLOOD COUNT W/ 2022-01-03 09:40:00 Jaden abdullahi [facility] DIFFERENTIAL [facility] COMPREHENSIVE METABOLIC 2022-01-03 09:40:00 Jaden abdullahi [facility] PANEL [facility] MAGNESIUM LEVEL 2022-01-03 09:40:00 Ayala Stanley [facility] PHOSPHORUS LEVEL 2022-01-03 09:40:00 Jaden abdullahi [facility] Results CBC 2022-01-03 09:40:00 Ayala Stanley [facility] MANUAL DIFFERENTIAL 2022-01-03 09:40:00 Ayala Stanley [facility] GLUCOSE LEVEL 2022-01-03 09:40:00 Ayala Stanley [facility] BLOOD UREA NITROGEN 2022-01-03 09:40:00 Ayala Stanley [facility] ELECTROLYTE PANEL 2022-01-03 09:40:00 Ayala Stanley [facility] SERUM CREATININE 2022-01-03 09:40:00 Jaden abdullahi [facility] .GLOMERULAR FILTRATION RATE 2022-01-03 09:40:00 Ayala Stanley [facility] CALCIUM LEVEL TOTAL 2022-01-03 09:40:00 Ayala Stanley [facility] ALBUMIN LEVEL 2022-01-03 09:40:00 Ayala Stanley [facility] ALKALINE PHOSPHATASE 2022-01-03 09:40:00 Ayala Stanley [facility] ALANINE AMINOTRANSFERASE 2022-01-03 09:40:00 Ayala Stanley [facility] ASPARTATE AMINOTRANSFERASE 2022-01-03 09:40:00 [facility] T[facility] PROTEIN 2022-01-03 09:40:00 Ayala Stanley [facility] FRACTIONATED BILIRUBIN 2022-01-03 09:40:00 Ayala Stanley [facility] COMPLETE BLOOD COUNT W/ 2022-01-02 17:55:00 Ayala Stanley [facility] DIFFERENTIAL [facility] COMPREHENSIVE METABOLIC 2022-01-02 17:55:00 Ayala Stanley [facility] PANEL [facility] MAGNESIUM LEVEL 2022-01-02 17:55:00 Ayala Stanley [facility] PHOSPHORUS LEVEL 2022-01-02 17:55:00 Ayala Stanley [facility] Results CBC 2022-01-02 17:55:00 Jaden abdullahi [facility] MANUAL DIFFERENTIAL 2022-01-02 17:55:00 Ayala Stanley [facility] GLUCOSE LEVEL 2022-01-02 17:55:00 Ayala Stanley [facility] BLOOD UREA NITROGEN 2022-01-02 17:55:00 Jaden [facility] ELECTROLYTE PANEL 2022-01-02 17:55:00 Jaden [facility] SERUM CREATININE 2022-01-02 17:55:00 Jaden abdullahi [facility] .GLOMERULAR FILTRATION RATE 2022-01-02 17:55:00 Jaden abdullahi [facility] CALCIUM LEVEL TOTAL 2022-01-02 17:55:00 Jaden abdullahi [facility] ALBUMIN LEVEL 2022-01-02 17:55:00 Jaden abdullahi [facility] ALKALINE PHOSPHATASE 2022-01-02 17:55:00 Ayala Stanley [facility] ALANINE AMINOTRANSFERASE 2022-01-02 17:55:00 Ayala Stanley [facility] ASPARTATE AMINOTRANSFERASE 2022-01-02 17:55:00 [facility] T[facility] PROTEIN 2022-01-02 17:55:00 Jaden abdullahi [facility] FRACTIONATED BILIRUBIN 2022-01-02 17:55:00 Ayala Stanley [facility] URINALYSIS WITH MICROSCOPIC 2022-01-02 07:53:00 Genesis Gallegos [facility] IF INDICATED [facility] URINALYSIS MICROSCOPIC 2022-01-02 07:53:00 Genesis Gallegos [facility] CT ABDOMEN PELVIS WO 2022-01-02 06:42:00 Genesis Gallegos [facility] CONTRAST [facility] BLOODCULTURE 2022-01-02 04:54:00 Deanne Rojas [facility] URINE CULTURE 2022-01-02 04:54:00 Genesis Gallegos [facility] URINE CULTURE 2022-01-02 03:27:00 Deanne Rojas [facility] URINALYSIS WITH MICROSCOPIC 2022-01-02 03:27:00 Genesis Gallegos [facility] IF INDICATED [facility] URINALYSIS MICROSCOPIC 2022-01-02 03:27:00 Genesis Gallegos Uni [facility] POC GLUCOSE SCREEN 2022-01-02 03:01:00 [facility] [place] X[facility] ABDOMEN AP 2022-01-02 02:49:03 Deanne Rojas o [facility] POC VENOUS BLOOD GAS + 2022-01-02 02:33:00 Genesis Gallegos Uni [facility] LACTATE [facility] BLOODCULTURE 2022-01-02 02:31:00 Deanne Rojas [facility] COVID-19 (SARS-COV-2) 2022-01-02 02:31:00 Deanne Rojas [facility] ASYMPTOMATIC-LT [facility] COMPLETE BLOOD COUNT W/ 2022-01-02 02:31:00 Deanne Rojas [facility] DIFFERENTIAL [facility] MAGNESIUM LEVEL 2022-01-02 02:31:00 Deanne Rojas [facility] er Center PHOSPHORUS LEVEL 2022-01-02 02:31:00 Deanne Rojas [facility] FRACTIONATED BILIRUBIN 2022-01-02 02:31:00 [facility] [place] AMYLASE LEVEL 2022-01-02 02:31:00 Deanne Rojas o [facility] er Center LIPASE LEVEL 2022-01-02 02:31:00 Deanne Rojas [facility] er Center LACTATE DEHYDROGENASE 2022-01-02 02:31:00 Deanne Rojas [facility] C REACTIVE PROTEIN 2022-01-02 02:31:00 Deanne Rojasit y [facility] er Center COMPREHENSIVE METABOLIC 2022-01-02 02:31:00 Deanne Rojas [facility] PANEL [facility] er Center PROCALCITONIN 2022-01-02 02:31:00 Viets, [facility] Results CBC 2022-01-02 02:31:00 Adrián [facility] MANUAL DIFFERENTIAL 2022-01-02 02:31:00 [facility] 2022-01-02 02:31:00 Deanne Rojas [facility] BLOOD UREA NITROGEN 2022-01-02 02:31:00 Deanne Rojas [facility] ELECTROLYTE PANEL 2022-01-02 02:31:00 Adrián [facility] SERUM CREATININE 2022-01-02 02:31:00 Adrián [facility] .GLOMERULAR FILTRATION RATE 2022-01-02 02:31:00 Adrián [facility] CALCIUM LEVEL TOTAL 2022-01-02 02:31:[address] [facility] ALBUMIN LEVEL 2022-01-02 02:31:00 [facility] ALKALINE PHOSPHATASE 2022-01-02 02:31:00 Deanne Rojas [facility] ALANINE AMINOTRANSFERASE 2022-01-02 02:31:00 De[facility] ASPARTATE AMINOTRANSFERASE 2022-01-02 02:31:00 Deanne [facility] TOTAL PROTEIN 2022-01-02 02:31:00 Deanne Rojas [facility] IR NEPHROSTOMY EXCHANGE 2021-10-26 17:27:40 Tc [facility] COVID-19 (SARS-COV-2) 2021-10-25 15:07:00 Tc Parker [facility] PCR-ASYMPTOMATIC [facility] [place] PORTABLE FLUOROSCOPY 2021-10-04 13:50:47 Sherif Husain [facility] CYSTOURETHROSCOPY WITH 2021-10-04 12:27:00 Sherif Husain [facility] INSERTION OF INDWELLING [facility] URETERAL STENT Center COVID-19 (SARS-COV-2) 2021-10-02 13:55:00 Sherif Husain [facility] PCR ASYMPTOMATIC [facility] URINE CULTURE 2021-10-02 13:46:00 Sherif Husain [facility] GUA 2021-10-02 13:46:00 Sherif Husain [facility] GUA MICROSCOPIC 2021-10-02 13:46:00 Sherif Husain [facility] COMPLETE BLOOD COUNT W/ 2021-10-02 13:41:00 Sherif Husain [facility] DIFFERENTIAL [facility] COMPREHENSIVE METABOLIC 2021-10-02 13:41:00 Sherif Husain [facility] PANEL [facility] HEMOGLOBIN A1C 2021-10-02 13:41:00 Sherif Husain [facility] TYPE AND SCREEN 2021-10-02 13:41:00 Sherif Husain [facility] Results CBC 2021-10-02 13:41:00 Sherif Husain [facility] MANUAL DIFFERENTIAL 2021-10-02 13:41:00 Sherif Husain [facility] GLUCOSE LEVEL 2021-10-02 13:41:00 Sherif Husain [facility] ABORH 2021-10-02 13:41:00 Sherif Husain [facility] ANTIBODY SCREEN 2021-10-02 13:41:00 Sherif Husain [facility] BLOOD UREA NITROGEN 2021-10-02 13:41:00 Sherif Husain [facility] ELECTROLYTE PANEL 2021-10-02 13:41:00 Sherif Husain [facility] SERUM CREATININE 2021-10-02 13:41:00 Sherif Husain [facility] .GLOMERULAR FILTRATION RATE 2021-10-02 13:41:00 Sherif Husain [facility] CALCIUM LEVEL TOTAL 2021-10-02 13:41:00 [facility] ALBUMIN LEVEL 2021-10-02 13:41:00 Sherif Husain [facility] ALKALINE PHOSPHATASE 2021-10-02 13:41:00 Sherif Husain [facility] ALANINE AMINOTRANSFERASE 2021-10-02 13:41:00 Sherif Husain [facility] ASPARTATE AMINOTRANSFERASE 2021-10-02 13:41:00 Sherif Husain [facility] TOTAL PROTEIN 2021-10-02 13:41:00 Sherif Husain [facility] FRACTIONATED BILIRUBIN 2021-10-02 13:41:00 Sherif Husain [facility] TMP INTERPRETATION ANTIBODY 2021-10-02 13:41:00 Sherif Husain [facility] SCREEN NEGATIVE [facility] CLOT EXPIRATION DATE 2021-10-02 13:41:00 Sherif Husain [facility] IR NEPHROSTOMY EXCHANGE 2021-07-27 14:58:42 Tanna [facility] Shreya [facility] MD MCCORMICK19 (SARS-COV-2) 2021-07-26 14:57:00 Volodymyr Frias [facility] PCR ASYMPTOMATIC [facility] [place] PORTABLE FLUOROSCOPY 2021-07-05 17:08:[address] [facility] CYSTOURETHROSCOPY, WITH 2021-07-05 15:55:00 Sherif Husain [facility] REMOVAL OF FOREIGN BODY, MD Buit[facility]ago [facility] CALCULUS, OR URETERAL STENT Cent er FROM URETHRA OR BLADDER MD BEAVERSID-19 (SARS-COV-2) 2021-07-03 16:16:00 Sherif Husain [facility] PCR ASYMPTOMATIC [facility] URINE CULTURE 2021-07-03 15:43:00 Sherif Husain [place] [facility] COMPLETE BLOOD COUNT W/ 2021-07-03 15:43:00 Sherif Husain [facility] DIFFERENTIAL [facility] COMPREHENSIVE METABOLIC 2021-07-03 15:43:00 Sherif Husain [facility] PANEL [facility] TYPE AND SCREEN 2021-07-03 15:43:00 Sherif Husain [place] [facility] GUA 2021-07-03 15:43:00 Kitty Ramesh [facility] Results CBC 2021-07-03 15:43:00 Sherif Husain [facility] MANUAL DIFFERENTIAL 2021-07-03 15:43:00 Sherif Husain [facility] GLUCOSE LEVEL 2021-07-03 15:43:00 Sherif Husain [facility] BLOOD UREA NITROGEN 2021-07-03 15:43:00 Sherif Husain [facility] ELECTROLYTE PANEL 2021-07-03 15:43:00 Sherif Husain [facility] SERUM CREATININE 2021-07-03 15:43:00 Sherif Husain [facility] .GLOMERULAR FILTRATION RATE 2021-07-03 15:43:00 Sherif Husain [facility] CALCIUM LEVEL TOTAL 2021-07-03 15:43:00 Sherif Husain [facility] ALBUMIN LEVEL 2021-07-03 15:43:00 Sherif Husain [facility] ALKALINE PHOSPHATASE 2021-07-03 15:43:00 Sherif Husain [facility] ALANINE AMINOTRANSFERASE 2021-07-03 15:43:00 Sherif Husain [facility] ASPARTATE AMINOTRANSFERASE 2021-07-03 15:43:00 Sherif [facility] TOTAL PROTEIN 2021-07-03 15:43:00 Sherif Husain [facility] FRACTIONATED BILIRUBIN 2021-07-03 15:43:00 Sherif Husain [facility] ABORH 2021-07-03 15:43:00 Sherif Husain [facility] ANTIBODY SCREEN 2021-07-03 15:43:00 Sherif Husain [facility] GUA MICROSCOPIC 2021-07-03 15:43:00 Sherif Husain [facility] TMP INTERPRETATION ANTIBODY 2021-07-03 15:43:00 Sherif Husain [facility] SCREEN NEGATIVE [facility] CLOT EXPIRATION DATE 2021-07-03 15:43:00 Sherif Husain [facility] US ARM VENOUS DOPPLER LEFT 2021-06-23 20:00:43 Zoe Mcintosh [facility] CT ABDOMEN PELVIS W 2021-06-23 00:44:24 [facility] URINE CULTURE 2021-06-22 23:45:00 Bubba Mckeon [facility] URINALYSIS MICROSCOPIC 2021-06-22 23:45:00 Bubba Mckeon [facility] URINALYSIS WITH MICROSCOPIC 2021-06-22 23:45:00 Ochoa Mckeon [facility] IF INDICATED [facility] URINE CULTURE 2021-06-22 12:48:00 Zoe Russo [facility] URINALYSIS WITH MICROSCOPIC 2021-06-22 12:48:00 Zoe Russo [facility] IF INDICATED [facility] URINALYSIS MICROSCOPIC 2021-06-22 12:48:[address] [facility] BASIC METABOLIC PANEL, 2021-06-22 10:32:00 Zoe Russo [facility] CALCIUM TOTAL [facility] COMPLETE BLOOD COUNT W/ 2021-06-22 10:32:00 Zoe Russo [facility] DIFFERENTIAL [facility] MAGNESIUM LEVEL 2021-06-22 10:32:00 Zoe Russo [facility] PHOSPHORUS LEVEL 2021-06-22 10:32:00 Zoe Russo [facility] PROCALCITONIN 2021-06-22 10:32:00 Zoe Russo [facility] GLUCOSE LEVEL 2021-06-22 10:32:00 Zoe Russo [facility] BLOOD UREA NITROGEN 2021-06-22 10:32:00 Zoe Russo [facility] ELECTROLYTE PANEL 2021-06-22 10:32:00 Zoe Russoit [facility] SERUM CREATININE 2021-06-22 10:32:00 Zoe Russo [facility] .GLOMERULAR FILTRATION RATE 2021-06-22 10:32:00 Zoe Russo [facility] CALCIUM LEVEL TOTAL 2021-06-22 10:32:00 Zoe Russo [facility] lishaFormerly [facility] Results CBC 2021-06-22 10:32:00 Zoe Russo [facility] MANUAL DIFFERENTIAL 2021-06-22 10:32:00 Zoe Russo [facility] POC VENOUS BLOOD GAS + 2021-06-22 01:41:00 Herminio Bernal [facility] LACTATE [facility] COVID-19 (SARS-COV-2) 2021-06-22 00:50:00 Osei Day [facility] XR CHEST 1 VW 2021-06-22 00:22:55 Osei Day o [facility] BLOODCULTURE 2021-06-21 23:12:00 Osei Day [facility] COMPREHENSIVE METABOLIC 2021-06-21 23:12:00 Osei Day [facility] PANEL [facility] COMPLETE BLOOD COUNT W/ 2021-06-21 23:12:00 Osei Day [facility] DIFFERENTIAL [facility] PROTHROMBIN TIME 2021-06-21 23:12:00 Osei Day [facility] APTT 2021-06-21 23:12:00 Shay [facility] GLUCOSE LEVEL 2021-06-21 23:12:00 Shay [facility] BLOOD UREA NITROGEN 2021-06-21 23:12:[address] [facility] SERUM CREATININE 2021-06-21 23:12:00 Shay [facility] .GLOMERULAR FILTRATION RATE 2021-06-21 23:12:00 Shay [facility] CALCIUM LEVEL TOTAL 2021-06-21 23:12:[address] [facility] ALBUMIN LEVEL 2021-06-21 23:12:00 Shay [facility] ALKALINE PHOSPHATASE 2021-06-21 23:12:00 Osei Day [facility] ALANINE AMINOTRANSFERASE 2021-06-21 23:12:00 Osei Day [facility] ASPARTATE AMINOTRANSFERASE 2021-06-21 23:12:00 [facility] TOTAL PROTEIN 2021-06-21 23:12:00 Shay [facility] FRACTIONATED BILIRUBIN 2021-06-21 23:12:00 Osei Day [facility] Results CBC 2021-06-21 23:12:00 Shay [facility] MANUAL DIFFERENTIAL 2021-06-21 23:12:[address] [facility] ELECTROLYTE PANEL 2021-06-21 23:12:00 Shay [facility] IR NEPHROSTOMY EXCHANGE 2021-05-01 18:36:00 Colleen Mendez [facility] COMPLETE BLOOD COUNT W/ 2021-04-27 16:31:00 Alma Solo [facility] DIFFERENTIAL [facility] CARBON DIOXIDE LEVEL 2021-04-27 16:31:00 Solo, [facility] CHLORIDE LEVEL 2021-04-27 16:31:00 Chris [facility] SODIUM LEVEL 2021-04-27 16:31:00 Chris [facility] POTASSIUM LEVEL 2021-04-27 16:31:00 Chris [facility] SERUM CREATININE 2021-04-27 16:31:00 Chris [facility] BLOOD UREA NITROGEN 2021-04-27 16:31:00 Chris [facility] GLUCOSE, RANDOM 2021-04-27 16:31:00 Chris [facility] TYPE AND SCREEN 2021-04-27 16:31:00 Chris [facility] Results CBC 2021-04-27 16:31:00 Chris [facility] MANUAL DIFFERENTIAL 2021-04-27 16:31:00 Chris [facility] SERUM CREATININE 2021-04-27 16:31:00 Chris [facility] .GLOMERULAR FILTRATION RATE 2021-04-27 16:31:00 Chris [facility] ABORH 2021-04-27 [facility]:31[facility] 2021-04-27 16:31:00 Chris [facility] ANION GAP 2021-04-27 16:31[facility] CLOT EXPIRATION DATE 2021-04-27 16:31:00 Chris [facility] TMP INTERPRETATION ANTIBODY 2021-04-27 16:31:00 Chris [facility] SCREEN NEGATIVE [facility] COVID-19 (SARS-COV-2) 2021-04-27 16:10:00 Colleen Mendez [facility] PCR-ASYMPTOMATIC [facility] PROTHROMBIN TIME 2021-04-27 15:49:00 Alma Solo [facility] COMPLETE BLOOD COUNT W/ 2021-03-27 17:30:00 Herminio Garza [facility] DIFFERENTIAL [facility] TOTAL PROTEIN 2021-03-27 17:30:00 Herminio Garza [facility] ALBUMIN LEVEL 2021-03-27 17:30:00 Herminio Garza [facility] CALCIUM LEVEL TOTAL 2021-03-27 17:30:00 Herminio Garza [facility] PHOSPHORUS LEVEL 2021-03-27 17:30:00 Herminio Garza [facility] GLUCOSE, RANDOM 2021-03-27 17:30:00 Herminio Garza [facility] BLOOD UREA NITROGEN 2021-03-27 17:30:00 Herminio Garza [facility] SERUM CREATININE 2021-03-27 17:30:00 Herminio Garza [facility] URIC ACID 2021-03-27 17:30:00 Herminio Garza [facility] FRACTIONATED BILIRUBIN 2021-03-27 17:30:00 Herminio Garza [facility] ALKALINE PHOSPHATASE 2021-03-27 17:30:00 [facility] LACT[facility] DEHYDROGENASE 2021-03-27 17:30:00 [facility] ALANINE AMINOTRANSFERASE 2021-03-27 17:30:00 Natalie Garza [facility] MAGNESIUM LEVEL 2021-03-27 17:30:00 Herminio Garza [facility] ASPARTATE AMINOTRANSFERASE 2021-03-27 17:30:00 Sharon Garza [facility] ELECTROLYTE PANEL 2021-03-27 17:30:00 Herminio Garza [facility] Results CBC 2021-03-27 17:30:00 Herminio Garza [facility] MANUAL DIFFERENTIAL 2021-03-27 17:30:00 Herminio Garza [facility] SERUM CREATININE 2021-03-27 17:30:00 [facility] .GLOMERULAR FILTRATION RATE 2021-03-27 17:30:00 Mark Garza [facility] PET CT Tumor 2017-08-20 00:00:00 [place] [facility] [id number] PET Tumor imaging initial 2017-07-22 00:00:00 [facility] whole body [id number] [place] Renal Lasix Scan [id number] 2017-04-22 00:00:00 [facility] of [facility] Salpingo-oophorectomy Bilateral History [facility] Exploratory [facility] laparotomy History of Mass excision [facility] Plan of Care Planned Activity Planned Date Details Comments Source Future Scheduled Test 2022-03-21 COVID-19 Vaccination [facility] 08:04:11 (3 - Pfizer risk [facility] Cancer series) [code = Center COVID-19 Vaccination (3 - Pfizer risk series)] Future Appointment 2022-04-18 Sherif Husain MD [facility] 13:10:00 MD Apollo [place], [place] [id number] [place] [address] Future Appointment 2022-04-18 Sherif Husain MD [facility] 13:10:00 MD Apollo Alex [place] [id number] [place] Procedure 2022-04-18 CYSTOURETHROSCOPY, [facility] 19:10:00 WITH REMOVAL OF MD Valadez Cancer FOREIGN BODY, Center CALCULUS, OR URETERAL STENT FROM URETHRA OR BLADDER Encounters Start End Encounter Admission Attending Care Care Encounter Source Date/Time Date/Time Type Type Clinicians Facility Department ID 2022-01-11 Outpatient RODRIGUE JOHNS [facility] [id number] 15:31:41 SHERIF Knoxjoey haskins 2021-07-28 Outpatient HUSAIN III, [facility] Urology [id number] 07:33:19 SHERIF Abiliojoey haskins 2019-12-21 Outpatient [facility] [id number] 10:57:26 JAS Douglas divine 2019-12-21 [facility] [id number] 10:57:26 JASJossue Douglas divine 2022-03-20 2022-03-20 [facility] Rocio 1.2.840.1 [id number] [facility] 13:39:52 23:59:00 Encounter a, 29154.1.1 it y [place] .[place] MD Guajardo8 [facility] 2022-03-20 2022-03-20 [facility] [id number] [place] 13:39:52 23:59:00 A, Abilio o JULISAHM n 2022-03-20 2022-03-20 Travel 1.2.840.1 [id number] Univers 00:00:00 00:00:00 68272.1.1 350.1.13.41 ity of 3.412.2.7 [place].3.698 [place] .3.950873 084.8 MD Bhatti [facility] 2022-03-20 2022-03-20 Orders Rocio 1.2.840.1 [id number] Univers 00:00:00 00:00:00 Only a, 42329.1.1 ity of [place] .3.337330 MD Guajardo8 [facility] 2022-03-19 2022-03-19 Orders Tabyoshii, 1.2.840.1 [id number] Univers 00:00:00 00:00:00 Only Annemarie O 01447.1.1 i ty of 3.412.2.7 [place] .3.213932 MD Guajardo8 [facility] 2022-03-12 2022-03-12 Office Rodriguez, 1.2.840.1 [id number] [facility] 10:15:00 11:59:31 Visit Volodymyr 98038.1.1 ity of 3.412.2.7 [place] .3.215788 .8 [facility] 2022-03-12 2022-03-12 Outpatient ALOK FRIAS MDA MDA [id number] [place] 10:14:23 11:59:31 VOLODYMYR Montes De Ocaisaias haskins 2022-03-12 2022-03-12 Orders [place], 1.2.840.1 [id number] [facility] 00:00:00 00:00:00 Only Max 63640.1.1 ity of 3.412.2.7 [place] .3.147525 .8 [facility] 2022-03-12 2022-03-12 Travel 1.2.840.1 [id number] [id number] [facility] 00:00:00 00:00:00 88582.1.1 350.1.13.41 ity of 3.412.2.7 2.[place]7.3.698 [place] .3.504302 084.8 .8 [facility] 2022-03-11 2022-03-11 Outpatient ALOK LIU MDA MDA [id number] 07:30:35 23:59:00 DWAYNE haskins 2022-03-11 2022-03-11 [facility] Noe, 1.2.840.1 [id number] [facility] 07:30:35 23:59:00 Encounter Dwayne 58484.1.1 it y of 3.412.2.7 [place] .3.147101 MD Guajardo8 [facility] 2022-03-11 2022-03-11 Outpatient ALOK LIU MDA MDA [id number] 07:15:00 07:29:00 DWAYNE haskins 2022-03-11 2022-03-11 [facility] Noe 1.2.840.1 [id number] [facility] 07:15:00 07:29:00 Encounter Dwayne 07796.1.1 it y of 3.412.2.7 [place] .3.832912 MD Guajardo8 [facility] 2022-03-11 2022-03-11 Travel 1.2.840.1 [id number] Univers 00:00:00 00:00:00 76859.1.1 350.1.13.41 ity of 3.412.2.7 2.[place]7.3.698 [place] .3.253691 084.8 MD Guajardo8 [facility] 2022-02-04 2022-02-04 Outpatient Jose Carlos Branch M00 [id number] 17:54:00 20:40:[address] Ctr 2022-01-24 2022-01-24 Anesthesia XavierJarocho 1.2.840.1 [id number] Univers 23:59:59 23:59:59 Event 08811.1.1 ity of 3.412.2.7 [place] .3.947007 MD Guajardo8 [facility] 2022-01-24 2022-01-24 POPETER Pace, 1.2.840.1 [id number] [facility] 09:00:00 09:30:00 Appointmen Kayleen 02161.1.1 i ty of ts 3.412.2.7 [place] .3.656513 MD [facility]ardo8 [facility] 2022-01-24 2022-01-24 Outpatient ALOK PACE MDA [facility] [id number] 07:33:35 07:33:35 KAYLEEN haskins 2022-01-11 2022-01-11 Orders Colleen Mendez 1.2.840.1 [id number] Univers 00:00:00 00:00:00 Only Angel 40818.1.1 ity of 3.412.2.7 [place] .3.843353 [facility] 2022-01-10 2022-01-10 Outpatient ALOK HUSAIN III, [facility] Urology [id number] 10:34:00 16:32:00 SHERIF haskins 2022-01-10 2022-01-10 [facility] [place], 1.2.840.1 [id number] Univers 10:34:00 16:32:00 Encounter Sherif Garcia 60060.1.1 i ty of 3.412.2.7 [place] .3.241415 MD Bhatti [facility] 2022-01-10 2022-01-10 Anesthesia Kourtney Javier 1.2.840.1 [id number] Univers 14:23:00 15:26:00 Event YennyBrie 43494.1.1 ity of 3.412.2.7 [place] .3.787182 MD Guajardo8 [facility] 2022-01-10 2022-01-10 Surgery Husain, 1.2.840.1 [id number] Univers 14:07:00 14:57:00 Sherif Garcia 11435.1.1 ity of 3.412.2.7 [place] .3.440035 MD Guajardo8 [facility] 2022-01-10 2022-01-10 Outpatient EL MDA MDA [id number] MD 14:29:00 14:29:00 Abilioisaias haskins 2022-01-10 2022-01-10 Ancillary 1.2.840.1 [id number] Univers 11:25:00 12:25:00 Procedure 63887.1.1 it y of 3.412.2.7 [place] .3.614978 MD Guajardo8 [facility] 2022-01-10 2022-01-10 Travel 1.2.840.1 1.2.889.502 4861 [id number] Univers 00:00:00 00:00:00 84646.1.1 350.1.13.41 ity of 3.412.2.7 [place].3.698 [place] .3.094237 084.8 MD Guajardo8 [facility] 2022-01-09 2022-01-09 Anesthesia Simba, 1.2.840.1 [id number] [id number] Univers 23:59:59 23:59:59 Event Deneen Francis 92805.1.1 ity of 3.412.2.7 [place] .3.523439 .8 [facility] 2022-01-09 2022-01-09 POEM Rodrigue, 1.2.840.1 [id number] Univers 16:30:00 17:00:00 Appointmen Sherif Garcia 09260.1.1 ity of ts 3.412.2.7 [place] .3.266147 MD Guajardo8 [facility] 2022-01-09 2022-01-09 Outpatient ALOK HUSAIN III, [facility] MDA [id number] 08:08:01 08:08:01 SHERIF haskins 2022-01-08 2022-01-08 [facility] [id number] MD 07:00:00 23:59:00 DWAYNE haskins 2022-01-08 2022-01-08 [facility] Noe, 1.2.840.1 [id number] [facility] 07:00:00 23:59:00 Encounter Dwayne 85898.1.1 it y of 3.412.2.7 [place] .3.128847 .8 [facility] 2022-01-08 2022-01-08 Office Rodriguez, 1.2.840.1 [id number] [facility] 13:30:00 14:22:25 Visit Volodymyr 59256.1.1 ity of 3.412.2.7 [place] .3.526132 .8 [facility] 2022-01-08 2022-01-08 [facility] 1087 [id number] [place] 11:26:15 14:22:25 VOLODYMYR haskins 2022-01-08 2022-01-08 Office Husain, 1.2.840.1 [id number] [facility] 10:00:00 11:15:40 Visit Sherif Garcia 28563.1.1 ity of 3.412.2.7 [place] .3.979135 MD [facility]8 [facility] [place] 2022-01-08 2022-01-08 Outpatient ALOK HUSAIN III, [facility] MDA [id number] 09:49:50 11:15:40 SHERIF haskins 2022-01-08 2022-01-08 Outpatient ALOK HUSAIN III, BA [facility] [id number] 09:35:53 10:04:09 SHERIF haskins 2022-01-08 2022-01-08 Clinical Sherif Husain 1.2.840.1 [id number] [facility] 09:30:00 10:04:09 Support Lucy Bishop 95667.1.1 ity of 3.412.2.7 [place] .3.106226 MD [facility]ajardo8 [facility] 2022-01-08 2022-01-08 Outpatient ALOK LIU MDA [facility] [id number] MD 06:45:00 06:59:00 DWAYNE haskins 2022-01-08 2022-01-08 [facility] Noe 1.2.840.1 [id number] [facility] 06:45:00 06:59:00 Encounter Dwayne 96272.1.1 it y of 3.412.2.7 [place] .3.854783 .8 [facility] 2022-01-08 2022-01-08 Travel 1.2.840.1 1.2.628.915 9663 [id number] [facility] 00:00:00 00:00:00 23362.1.1 350.1.13.41 ity of 3.412.2.7 [place].3.698 [place] .[place].2344[place] 084.8 .8 [facility] 2022-01-01 2022-01-06 Inpatient ER REUBEN [facility] [id number] MD 21:05:00 13:36:00 HADEEL Abilio haskins 2022-01-01 2022-01-06 [facility] Genesis Gallegos 1.2.840.1 [id number] [facility] 21:05:00 13:36:00 Encounter Giorgi Lewis 20063.1.1 ity of Reuben Hadeel 3.412.2.7 [place] .3.028795 MD [facility]ajardo8 [facility] 2022-01-05 2022-01-05 Inpatient EL BA ALEXIS [facility] [id number] MD 12:44:18 13:09:20 HADEEL Abilio o divine 2022-01-05 2022-01-05 Inpatient ALOK DUDLEY, [facility] [id number] 07:49:02 11:47:39 Abilioisaias haskins 2022-01-05 2022-01-05 Anesthesia Summer Sewell H. 1.2.840.1 [id number] Univers 09:00:00 10:11:00 Event Mally [place] 73893.1.1 ity of 3.412.2.7 [place] .3.010570 MD Bhatti [facility] 2022-01-05 2022-01-05 Travel 1.2.840.1 1.2.236.806 0667 [id number] Univers 00:00:00 00:00:00 13600.1.1 350.1.13.41 ity of 3.412.2.7 [place]7.3.698 [place] .3.817648 084.8 MD Bhatti [facility] 2022-01-03 2022-01-03 Orders Dudley, [facility] 1.2.840.1 [id number] Univers 00:00:00 00:00:00 Only T 05641.1.1 ity of 3.412.2.7 [place] .3.060048 MD Bhatti [facility] 2022-01-02 2022-01-02 Documentat Brittany, 1.2.840.1 [id number] Univers 00:00:00 00:00:00 ion Funmi 18770.1.1 ity of 3.412.2.7 [place] .3.393864 MD Bhatti [facility] 2022-01-01 2022-01-01 Travel 1.2.840.1 1.2.438.764 6414 [id number] Univers 00:00:00 00:00:00 83309.1.1 350.1.13.41 ity of 3.412.2.7 [place].7.3.698 [place] .3.921784 084.8 MD .8 [facility] 2021-12-22 2021-12-22 POEM Pace, 1.2.840.1 [id number] Univers 16:30:00 17:00:00 Appointeloy Beyer 25621.1.1 i ty of ts 3.412.2.7 [place] .3.966136 MD Guajardo8 [facility] 2021-12-22 2021-12-22 Outpatient EL PACE, MDA MDA [id number] MD 00:00:00 00:00:00 KAYLEEN haskins 2021-11-23 2021-11-23 [facility] MDA [id number] MD 08:37:27 23:59:00 Hilary Abilioisaias haskins I 2021-11-23 2021-11-23 [facility] 1.2.840.1 [id number] Univers 08:37:27 23:59:00 Encounter hilary 63443.1.1 it [place]2.7 [place] .3.711463 MD Guajardo8 [facility] 2021-11-23 2021-11-23 Travel 1.2.840.1 1.2.641.017 2720 [id number] Univers 00:00:00 00:00:00 86285.1.1 350.1.13.41 ity of 3.412.2.7 2.[place].7.3.698 [place] .3.240964 084.8 MD Guajardo8 [facility] 2021-10-27 2021-10-27 [facility] Pace, 1.2.840.1 [id number] Univers 00:00:00 00:00:00 Only Kayleen 00578.1.1 ity of 3.412.2.7 [place] .3.414718 MD Bhatti [facility] 2021-10-26 2021-10-26 [facility] Tc Parker 1.2.840.1 [id number] Univers 10:28:05 23:59:00 Encounter Medina Marshall 58100.1.1 ity of Vickey Balesa 3.412.2.7 [place] Lulu Roy .3.484843 MD Guajardo8 [facility] 2021-10-26 2021-10-26 Anesthesia Letty Bales 1.2.840.1 [id number] Univers 11:59:00 12:48:00 Event Medina Marshall 33133.1.1 ity of 3.412.2.7 [place] .3.404585 MD Guajardo8 [facility] 2021-10-26 2021-10-26 Travel 1.2.840.1 1.2.762.932 5413 [id number] Univers 00:00:00 00:00:00 52610.1.1 350.1.13.41 ity of 3.412.2.7 [place]7.3.698 [place] .3.741644 084.8 MD Guajardo8 [facility] 2021-10-25 2021-10-25 Anesthesia Keven 1.2.840.1 [id number] Univers 23:59:59 23:59:59 Event Angela 10876.1.1 ity of 3.412.2.7 [place] .3.207318 MD Bhatti [facility] 2021-10-25 2021-10-25 ZINA Frias 1.2.840.1 [id number] [id number] Univers 12:00:00 12:30:00 Appointeloy Montano 23209.1.1 i ty of ts 3.412.2.7 [place] .3.888319 MD Bhatti [facility] 2021-10-25 2021-10-25 Clinical Volodymyr Frias 1.2.840.1 [id number] [id number] Univers 10:30:00 10:30:00 Support Alexandra Jauregui 92794.1.1 ity of 3.412.2.7 [place] .3.379129 MD Guajardo8 [facility] 2021-10-25 2021-10-25 Orders Alicia 1.2.840.1 [id number] Univers 00:00:00 00:00:00 Only Ariana Cook 20017.1.1 ity of 3.412.2.7 [place] .3.672809 MD Bhatti [facility] 2021-10-25 2021-10-25 Travel 1.2.840.1 1.2.997.479 3884 [id number] Univers 00:00:00 00:00:00 95448.1.1 350.1.13.41 ity of 3.412.2.7 2.[place].7.3.698 [place] .3.085875 084.8 MD Bhatti [facility] 2021-10-06 2021-10-06 Orders Colleen Mendez 1.2.840.1 [id number] Univers 00:00:00 00:00:00 Only Erikapaola 79831.1.1 ity of 3.412.2.7 [place] .3.017226 MD Bhatti [facility] 2021-10-04 2021-10-04 [facility], 1.2.840.1 [id number] 74983 [id number] Univers 05:48:00 10:27:00 Encounter Sherif Garcia 72264.1.1 i ty of 3.412.2.7 [place] .3.844221 MD Bhatti [facility] 2021-10-04 2021-10-04 Surgery [place], 1.2.840.1 [id number] Univers 08:00:00 09:20:00 Sherif Garcia 88789.1.1 ity of 3.412.2.7 [place] .3.122393 MD Bhatti [facility] 2021-10-04 2021-10-04 Ancillary 1.2.840.1 [id number] [id number] Univers 08:00:00 09:00:00 Procedure 65295.1.1 it y of 3.412.2.7 [place] .3.334349 MD Bhatti [facility] 2021-10-04 2021-10-04 Anesthesia Jaime Gill 1.2.840.1 [id number] 1 [id number] Univers 07:50:00 08:59:00 Event A. 29234.1.1 ity of 3.412.2.7 [place] .3.501103 MD Bhatti [facility] 2021-10-04 2021-10-04 Travel 1.2.840.1 1.2.818.661 5013 [id number] Univers 00:00:00 00:00:00 16330.1.1 350.1.13.41 ity of 3.412.2.7 2.[place].7.3.698 [place] .3.110244 084.8 MD Bhatti [facility] 2021-10-03 2021-10-03 [facility] Sherif 1.2.840.1 [id number] Univers 23:59:59 23:59:59 Event Lynnette 78764.1.1 ity of 3.412.2.7 [place] .3.602468 MD Bhatti [facility] 2021-10-03 2021-10-03 ZINA Husain 1.2.840.1 [id number] Univers 10:00:00 10:30:00 Appointmen Sherif Garcia 68277.1.1 ity of ts 3.412.2.7 [place] .3.485102 MD Bhatti [facility] 2021-10-02 2021-10-02 [facility] Rodrigue, 1.2.840.1 [id number] Univers 07:45:00 23:59:00 Encounter Sherif Garcia 60400.1.1 i ty of 3.412.2.7 [place] .3.241777 MD Bhatti [facility] 2021-10-02 2021-10-02 Office Rodrigue, 1.2.840.1 [id number] Univers 10:00:00 10:12:49 Visit Sherif Garcia 85283.1.1 ity of 3.412.2.7 [place] .3.584101 MD Bhatti [facility] 2021-10-02 2021-10-02 Clinical Sherif Husain 1.2.840.1 [id number] Univers 08:45:00 08:56:50 Support Erasto Jo 21838.1.1 ity of 3.412.2.7 [place] .3.850435 MD Guajardo8 [facility] 2021-10-02 2021-10-02 Travel 1.2.840.1 1.2.617.341 4056 [id number] Univers 00:00:00 00:00:00 78457.1.1 350.1.13.41 ity of 3.412.2.7 2.2.7.3.698 [place] .3.422912 084.8 MD Guajardo8 [facility] 2021-08-15 2021-08-15 Colleen Mari 1.2.840.1 [id number] Univers 00:00:00 00:00:00 Only Angel 82968.1.1 ity of 3.412.2.7 [place] .3.438144 MD Guajardo8 [facility] 2021-07-27 2021-07-27 Outpatient COLLEEN MENDEZ [facility] [id number] [place] 06:39:59 23:59:00 [facility] 2021-07-27 2021-07-27 [facility] Colleen Mendez Angel 1.2.840.1 [id number] [facility] 06:39:59 23:59:00 Encounter Lillian Camacho 89147.1.1 ity of Syed Pinon 3.412.2.7 [place] Modi .3.116599 MD Guajardo8 [facility] 2021-07-27 2021-07-27 [facility] Lillian Camacho 1.2.840.1 [id number] Univers 08:01:00 09:08:00 Event Syed Pinon 39372.1.1 ity of 3.412.2.7 [place] .3.724183 MD Guajardo8 [facility] 2021-07-27 2021-07-27 [facility] MendezColleen 1.2.840.1 [id number] 10 [id number] Univers 00:00:00 00:00:00 Only Angel 79525.1.1 ity of 3.412.2.7 [place] .3.868315 MD Guajardo8 [facility] 2021-07-27 2021-07-27 Orders Segura, 1.2.840.1 [id number] Univers 00:00:00 00:00:00 Only Cristin 21183.1.1 ity of 3.412.2.7 [place] .3.276399 MD Guajardo8 [facility] 2021-07-27 2021-07-27 Travel 1.2.840.1 1.2.206.310 5152 [id number] Univers 00:00:00 00:00:00 69478.1.1 350.1.13.41 ity of 3.412.2.7 2.2.7.3.698 [place] .3.656934 084.8 MD Guajardo8 [facility] 2021-07-26 2021-07-26 Jarocho Cortes 1.2.840.1 [id number] Univers 23:59:59 23:59:59 Event 83040.1.1 ity of 3.412.2.7 [place] .3.641058 MD Guajardo8 [facility] 2021-07-26 2021-07-26 Svetlana Sweeney 1.2.840.1 [id number] [id number] Univers 16:00:00 16:30:00 Appointmen 14361.1.1 i ty of ts 3.412.2.7 [place] .3.769376 MD Guajardo8 [facility] 2021-07-26 2021-07-26 Clinical Volodymyr Frias 1.2.840.1 97119 2616 [id number] Univers 09:00:00 14:23:38 Support Ilir Hough 55210.1.1 ity of 3.412.2.7 [place] .3.501611 MD Guajardo8 [facility] 2021-07-26 2021-07-26 Outpatient ALOK FRIAS MDA MDA [id number] 08:51:45 14:23:38 VOLODYMYR cook 2021-07-26 2021-07-26 Outpatient SVETLANA WOOD [facility] [id number] 07:51:24 07:51:24 Abilio haskins 2021-07-26 2021-07-26 Greg Stevenson 1.2.840.1 [id number] Univers 00:00:00 00:00:00 Only M 14166.1.1 ity of 3.412.2.7 [place] .3.177656 MD Bhatti [facility] 2021-07-26 2021-07-26 Travel 1.2.840.1 1.2.725.772 5493 [id number] Univers 00:00:00 00:00:00 92429.1.1 350.1.13.41 ity of 3.412.2.7 2.[place].7.3.698 [place] .3.181149 084.8 MD [facility] 2021-07-05 2021-07-05 Outpatient ALOK HUSAIN III [facility] Urology [id number] 07:17:00 12:34:00 SHERIF haskins 2021-07-05 2021-07-05 [facility] Rodrigue 1.2.840.1 [id number] [facility] 07:17:00 12:34:00 Encounter Sherif Garcia 79215.1.1 i ty of 3.412.2.7 [place] .3.805946 MD Bhatti [facility] 2021-07-05 2021-07-05 Ancillary 1.2.840.1 [id number] [id number] Univers 10:10:00 11:10:00 Procedure 11224.1.1 it y of 3.412.2.7 [place] .3.954551 MD Bhatti [facility] 2021-07-05 2021-07-05 Anesthesia Louie-Veroniqueo 1.2.840.1 [id number] Univers 10:07:00 11:05:00 Event Brie francis 91443.1.1 ity of 3.412.2.7 [place] .3.262002 MD Bhatti [facility] 2021-07-05 2021-07-05 Surgery Husain, 1.2.840.1 [id number] Univers 09:55:00 10:55:00 Sherif Garcia 02384.1.1 ity of 3.412.2.7 [place] .3.738732 MD Bhatti [facility] 2021-07-05 2021-07-05 Outpatient EL MDA MDA [id number] MD 10:14:30 10:14:30 [facility] 2021-07-05 2021-07-05 Travel 1.2.840.1 1.2.083.137 5377 [id number] Univers 00:00:00 00:00:00 63187.1.1 350.1.13.41 ity of 3.412.2.7 [place].7.3.698 [place] .3.336184 084.8 MD Bhatti [facility] 2021-07-04 2021-07-04 Travel 1.2.840.1 1.2.478.372 6664 [id number] Univers 00:00:00 00:00:00 07418.1.1 350.1.13.41 ity of 3.412.2.7 2.2.7.3.698 [place] .3.903778 084.8 MD Bhatti [facility] 2021-07-03 2021-07-03 Anesthesia Salvador, 1.2.840.1 [id number] Univers 23:59:59 23:59:59 Event Christelle Marcum 62213.1.1 it y of 3.412.2.7 [place] .3.795138 MD Bhatti [facility] 2021-07-03 2021-07-03 Outpatient EL HUSAIN III, MDA MDA [id number] [id number] MD 09:18:41 23:59:00 SHERIF haskins 2021-07-03 2021-07-03 [facility] Husain, 1.2.840.1 [id number] Univers 09:18:41 23:59:00 Encounter Sherif Garcia 37169.1.1 i ty of 3.412.2.7 [place] .3.324211 MD Bhatti [facility] 2021-07-03 2021-07-03 ZINA Husain, 1.2.840.1 [id number] [facility] 13:00:00 15:33:40 Appointmen Sherif Garcia 44814.1.1 ity of ts 3.412.2.7 [place] .3.808532 MD Bhatti [facility] 2021-07-03 2021-07-03 Outpatient ALOK HUSAIN III, [facility] [id number] 12:06:43 15:33:40 SHERIF [facility] 2021-07-03 2021-07-03 Ambrosio Husain 1.2.840.1 [id number] [facility] 11:30:00 11:54:19 Visit Sherif Garcia 92696.1.1 ity of 3.412.2.7 [place] .3.321455 MD Guajardo8 [facility] 2021-07-03 2021-07-03 Outpatient ALOK HUSAIN III, [facility] [id number] [id number] 10:19:51 11:54:19 SHERIF [facility] 2021-07-03 2021-07-03 Clinical Colleen Mendez 1.2.840.1 [id number] [facility] 10:45:00 10:45:00 Support Angelika Wiley 01135.1.1 ity of 3.412.2.7 [place] .3.429444 MD Guajardo8 [facility] 2021-07-03 2021-07-03 Outpatient COLLEEN DEUTSCH [facility] [id number] 09:57:50 10:18:00 [facility] 2021-07-03 2021-07-03 Travel 1.2.840.1 1.2.601.311 2787 [id number] [facility] 00:00:00 00:00:00 41516.1.1 350.1.13.41 ity of 3.412.2.7 [place]7.3.698 [place] .3.696760 084.8 MD Guajardo8 [facility] 2021-06-24 2021-06-24 Renetta Frias 1.2.840.1 [id number] Univers 00:00:00 00:00:00 Volodymyr 06712.1.1 ity of 3.412.2.7 [place] .3.329981 MD Guajardo8 [facility] 2021-06-24 2021-06-24 Telephone Kaykay Styles 1.2.840.1 [id number] Univers 00:00:00 00:00:00 J 83288.1.1 ity of 3.412.2.7 [place] .3.737097 MD Guajardo8 [facility] 2021-06-21 2021-06-23 Outpatient UR BA CAVAZOS [facility] [id number] MD 17:54:00 18:39:00 SYED haskins 2021-06-21 2021-06-23 Emergency Herminio Bernal 1.2.840.1 [id number] [facility] 17:54:00 18:39:00 Bubba Mckeon 11796.1.1 ity of Syed Cavazos 3.412.2.7 [place] .3.576532 MD [facility]hatti [facility] 2021-06-23 2021-06-23 Papa Vargas 1.2.840.1 [id number] Univers 00:00:00 00:00:00 Only L 22722.1.1 ity of 3.412.2.7 [place] .3.191772 MD [facility]hatti [facility] 2021-06-22 2021-06-22 Travel 1.2.840.1 1.2.847.189 7518 [id number] Univers 00:00:00 00:00:00 57505.1.1 350.1.13.41 ity of 3.412.2.7 [place]7.3.698 [place] .3.025196 084.8 MD Guajardo8 [facility] 2021-06-21 2021-06-21 Travel 1.2.840.1 1.2.598.142 4413 [id number] Univers 00:00:00 00:00:00 78816.1.1 350.1.13.41 ity of 3.412.2.7 [place]7.3.698 [place] .3.898412 084.8 MD [facility]hatti [facility] 2021-05-23 2021-05-23 Diamante Svetlana Farooq 1.2.840.1 [id number] [facility] 00:00:00 00:00:00 Only 15320.1.1 ity of 3.412.2.7 [place] .3.982667 MD Guajardo8 [facility] 2021-05-02 2021-05-02 [facility] Colleen Mendez 1.2.840.1 [id number] [facility] 00:00:00 00:00:00 Only Hwan 97132.1.1 ity of 3.412.2.7 [place] .3.831488 MD [facility]hatti [facility] 2021-05-01 2021-05-01 Outpatient COLLEEN MENDEZ [facility] [id number] [place] 09:15:41 23:59:00 [facility] 2021-05-01 2021-05-01 [facility] Colleen Mendez 1.2.840.1 [id number] [facility] 09:15:41 23:59:00 Encounter Summer Sewell 90882.1.1 ity of [place]ox[place]412.2.7 [place] Dolan .3.882655 MD [facility] 2021-05-01 2021-05-01 Anesthesia Donato 1.2.840.1 [id number] [facility] 11:31:00 12:43:00 Event Summer Ayala 52195.1.1 it y of 3.412.2.7 [place] .3.392074 MD [facility]hatti [facility] 2021-05-01 2021-05-01 Travel 1.2.840.1 1.2.800.753 9684 [id number] [facility] 00:00:00 00:00:00 20062.1.1 350.1.13.41 ity of 3.412.2.7 2.2[place]7.3.698 [place] .3.556012 084.8 MD Guajardo8 [facility] 2021-04-28 2021-04-28 Anesthesia [place] 1.2.840.1 [id number] Univers 23:59:59 23:59:59 Event 09474.1.1 ity of 3.412.2.7 [place] .3.586300 MD Guajardo8 [facility] 2021-04-28 2021-04-28 ZINA Frias, 1.2.840.1 [id number] Univers 11:30:00 12:00:00 Appointmen Volodymyr 17381.1.1 i ty of ts 3.412.2.7 [place] .3.177031 MD Guajardo8 [facility] 2021-04-28 2021-04-28 Outpatient ALOK FRIAS MDA MDA [id number] 07:56:26 07:56:26 VOLODYMYR [place] [facility] 2021-04-28 2021-04-28 Orders Amelia 1.2.840.1 [id number] [facility] 00:00:00 00:00:00 Only Brigette 54119.1.1 ity of 3.412.2.7 [place] .3.762349 MD Guajardo8 [facility] 2021-04-27 2021-04-27 Outpatient ALOK SOLO MDA MDA [id number] 09:49:17 23:59:00 ALMA haskins 2021-04-27 2021-04-27 [facility] Chris 1.2.840.1 [id number] [facility] 09:49:17 23:59:00 Encounter Alma 12942.1.1 it y of 3.412.2.7 [place] .3.017126 MD Guajardo8 [facility] 2021-04-27 2021-04-27 Clinical Alma Solo 1.2.840.1 [id number] Univers 10:45:00 10:45:00 [place] 82548.1.1 ity of 3.412.2.7 [place] .3.471546 MD Guajardo8 [facility] 2021-04-27 2021-04-27 Outpatient ALOK SOLO, MDA [facility] [id number] 09:58:46 10:24:40 ALMA haskins 2021-04-27 2021-04-27 Travel 1.2.840.1 1.2.244.993 [id number] [facility] 00:00:00 00:00:00 49345.1.1 350.1.13.41 ity of 3.412.2.7 [place].3.698 [place] .3.576601 084.8 MD Guajardo8 [facility] 2021-04-25 2021-04-25 Orders Solo, 1.2.840.1 [id number] Univers 00:00:00 00:00:00 Only Alma 21440.1.1 ity of 3.412.2.7 [place] .3.394623 MD Bhatti [facility] 2021-04-24 2021-04-24 Orders MendezColleen 1.2.840.1 [id number] [facility] 00:00:00 00:00:00 Only Angel 47089.1.1 ity of 3.412.2.7 [place] .3.879998 MD Bhatti [facility] 2021-03-31 2021-03-31 Outpatient ALOK VAZQUEZ BA [facility] [id number] 09:00:00 23:59:00 CHRIS haskins 2021-03-31 2021-03-31 [facility], 1.2.840.1 [id number] [facility] 09:00:00 23:59:00 Encounter Chris 94018.1.1 it y of 3.412.2.7 [place] .3.491170 MD Bhatti [facility] 2021-03-31 2021-03-31 Travel 1.2.840.1 1.2.286.139 [id number] [facility] 00:00:00 00:00:00 88201.1.1 350.1.13.41 ity of 3.412.2.7 2.[place].3.698 [place] .3.012644 084.8 .8 [facility] 2021-03-27 2021-03-27 [facility] [id number] [place] 11:22:54 23:59:00 HERMINIO Apolloraoul haskins 2021-03-27 2021-03-27 [facility], 1.2.840.1 [id number] [facility] 11:22:54 23:59:00 Encounter Herminio 58359.1.1 i ty of 3.412.2.7 [place] .3.384645 MD Guajardo8 [facility] 2021-03-27 2021-03-27 [facility], 1.2.840.1 [id number] [facility] 14:15:00 15:59:11 Visit Volodymyr 41593.1.1 ity of 3.412.2.7 [place] .3.804621 MD Guajardo8 [facility] 2021-03-27 2021-03-27 Outpatient [facility] [id number] 11:53:47 15:59:11 VOLODYMYR [facility] 2021-03-27 2021-03-27 Travel 1.2.840.1 1.2.822.594 [id number] [facility] 00:00:00 00:00:00 54890.1.1 350.1.13.41 ity of 3.412.2.7 2.[place].3.698 [place] .3.503276 084.8 .8 [facility] [facility] 2021-03-08 2021-03-08 Outpatient [facility] Urology [id number] 10:16:00 17:50:00 SHERIF Knox o divine 2021-03-08 2021-03-08 Outpatient [facility] MDA [id number] 15:10:32 15:10:32 Abilio o n 2021-03-07 2021-03-07 Outpatient MDA MDA [id number] MD 07:14:49 07:14:49 Abilio o divine 2021-03-04 2021-03-04 Outpatient [facility] MDA [id number] MD 10:59:19 10:59:19 Abilio o divine 2021-03-03 2021-03-03 Outpatient EL MDA MDA [id number] 07:30:00 23:59:00 Abilio o divine 2021-03-03 2021-03-03 Outpatient EL MDA MDA [id number] MD 10:35:35 10:35:35 Abilio o divine 2021-02-06 2021-02-06 Outpatient EL HUSAIN III, MDA MDA [id number] 10:03:37 11:50:07 SHERIF haskins 2021-01-07 2021-01-07 Outpatient EL RODRIGUEZ, MDA MDA [id number] 10:14:17 10:14:17 VOLODYMYR Knox o divine 2020-12-27 2020-12-31 Inpatient ER ALLEN, MDA Lymphoma/My [id number] MD 20:32:00 14:11:00 NABIL Knox o divine 2020-12-30 2020-12-30 Inpatient EL ALLEN, MDA MDA [id number] 20:00:45 20:23:41 NABIL Knox o divine 2020-12-29 2020-12-29 Inpatient EL [facility], MDA MDA [id number] MD 13:09:09 16:37:36 DEANNE Knox o divine 2020-12-10 2020-12-10 Outpatient EL SHANEL, MDA MDA [id number] MD 12:59:10 12:59:10 LOBO Knox o divine 2020-10-12 2020-10-12 Outpatient EL HUSAIN III, MDA Urology [id number] 08:07:00 11:32:00 SHERIF haskins 2020-10-12 2020-10-12 Outpatient EL MDA MDA [id number] 09:25:49 09:25:49 Abilio o divine 2020-10-10 2020-10-10 Outpatient EL HUSAIN III, MDA MDA [id number] 12:22:00 13:58:27 SHERIF haskins 2020-10-10 2020-10-10 Outpatient EL HUSAIN III, MDA MDA [id number] 11:22:04 12:04:07 SHERIF haskins 2020-10-10 2020-10-10 Outpatient EL HUSAIN III, MDA MDA [id number] 11:06:44 11:20:45 SHERIF haskins 2020-09-26 2020-09-26 Outpatient ALOK FRIAS, MDA MDA [id number] 10:21:16 11:50:49 VOLODYMRY haskins 2020-09-25 2020-09-25 Outpatient ALOK LIU, MDA MDA [id number] MD 10:43:53 23:59:00 DWAYNE haskins 2020-09-25 2020-09-25 Outpatient ALOK LIU, MDA MDA [id number] 10:00:00 10:42:00 DWAYNE haskins 2020-08-30 2020-08-30 Outpatient WHITNEY WOOD MDA MDA [id number] MD 10:29:20 23:59:00 Abilio haskins 2020-08-25 2020-08-27 Inpatient RAOUL NELSON, MDA Lymphoma/My [id number] MD 15:35:00 17:52:00 Pauline haskins 2020-08-27 2020-08-27 Inpatient ALOK NELSON, MDA MDA [id number] MD 14:30:42 14:41:05 OLEKSANDR Knox o divine 2020-08-26 2020-08-26 Inpatient ALOK NELSON, MDA MDA [id number] MD 01:29:03 01:36:50 OLEKSANDR haskins 2020-08-11 2020-08-11 Outpatient ALOK NELSONLULU GARCIA MDA MDA [id number] 10:27:29 23:59:00 Abilio haskins 2020-08-10 2020-08-10 Outpatient ALOK PATINO, MDA MDA [id number] 09:45:18 10:18:22 VERO haskins 2020-08-10 2020-08-10 Outpatient ALOK APTINO, MDA MDA [id number] MD 07:30:26 07:30:26 VERO haskins 2020-07-28 2020-07-28 Outpatient ALOK TOMASZAINA, MDA MDA [id number] 10:53:50 23:59:00 ESTELLE haskins 2020-07-27 2020-07-27 Outpatient ALOK PATINO, MDA MDA [id number] 09:00:06 09:34:06 VERO haskins 2020-07-18 2020-07-18 Outpatient EL HUSAIN III, MDA MDA [id number] 15:04:35 23:59:00 SHERIF haskins 2020-07-18 2020-07-18 Outpatient EL HUSAIN III, MDA MDA [id number] 14:27:26 14:27:26 SHERIF haskins 2020-07-18 2020-07-18 Outpatient EL HUSAIN III, MDA MDA [id number] 12:47:54 12:47:54 SHERIF haskins 2020-07-13 2020-07-13 Outpatient EL HUSAIN III, MDA Urology [id number] 05:53:00 11:05:00 SHERIF haskins 2020-07-13 2020-07-13 Outpatient EL MDA MDA [id number] 07:48:24 07:48:24 Abilio haskins 2020-07-12 2020-07-12 Outpatient EL RODRIGUEZ, MDA MDA [id number] 09:33:19 09:33:19 VOLODYMYR haskins 2020-07-11 2020-07-11 Outpatient EL HUSAIN III, MDA MDA [id number] 10:24:38 23:59:00 SHERIF haskins 2020-07-11 2020-07-11 Outpatient EL HUSAIN III, MDA MDA [id number] 09:30:59 10:13:33 SHERIF haskins 2020-07-11 2020-07-11 Outpatient EL HUSAIN III, MDA MDA [id number] 08:45:43 08:45:43 SHERIF haskins 2020-07-11 2020-07-11 Outpatient EL HUSAIN III, MDA MDA [id number] 08:24:08 08:36:52 SHERIF haskins 2020-07-01 2020-07-01 Outpatient EL CAREY, MDA MDA [id number] 07:40:44 07:40:44 VERO haskins 2020-05-30 2020-05-30 Outpatient EL HUSAIN III, MDA MDA [id number] 11:02:17 14:20:03 SHERIF haskins 2020-05-26 2020-05-26 Outpatient EL HUSAIN III, MDA MDA [id number] 11:00:31 23:59:00 SHERIF haskins 2020-05-26 2020-05-26 Outpatient EL LENAUNT MDA MDA [id number] 09:20:00 10:59:00 Abilio Richard I 2020-05-04 2020-05-04 Outpatient EL HUSAIN III, MDA Urology [id number] 08:55:00 15:36:00 SHERIF haskins 2020-05-04 2020-05-04 Outpatient EL MDA MDA [id number] 12:49:51 12:49:51 Abilio haskins 2020-05-03 2020-05-03 Outpatient EL CHRISSIE, MDA MDA [id number] 07:22:05 07:22:05 TESFAYE haskins 2020-05-02 2020-05-02 Outpatient EL DOUG STINSON MDA MDA [id number] 11:31:53 23:59:00 Abilio haskins 2020-05-02 2020-05-02 Outpatient EL RODRIGUEZ, MDA MDA [id number] 11:00:00 11:30:00 VOLODYMYR haskins 2020-05-02 2020-05-02 Outpatient EL HUSAIN III, MDA MDA [id number] 10:43:01 11:05:57 SHERIF haskins 2020-05-02 2020-05-02 Outpatient EL HUSAIN III, MDA MDA [id number] 10:29:34 10:59:00 SHERIF haskins 2020-04-25 2020-04-25 Outpatient EL HUSAIN III, MDA MDA [id number] 08:04:41 10:09:50 SHERIF haskins 2020-04-25 2020-04-25 Outpatient EL HUSAIN III, MDA MDA [id number] 08:42:54 08:42:54 SHERIF haskins 2020-04-18 2020-04-18 Outpatient EL HUSAIN III, MDA MDA [id number] 11:21:18 23:59:00 SHERIF haskins 2020-04-18 2020-04-18 Outpatient EL HUSAIN III, MDA MDA [id number] 09:50:24 11:14:12 SHERIF haskins 2020-04-04 2020-04-04 Outpatient EL LOKESH, MDA MDA [id number] 06:47:40 23:59:00 ESTELLE haskins 2020-04-03 2020-04-03 Outpatient EL DARA, MDA MDA [id number] MD 10:21:27 10:27:30 JOANIE Knox o divine 2020-03-23 2020-03-23 Outpatient EL RODRIGUEZ, MDA MDA [id number] 11:28:01 11:28:01 VOLODYMYR [place]es [place] o divine 2020-03-22 2020-03-22 Outpatient EL NOE, MDA MDA [id number] MD 13:45:00 23:59:00 DWAYNE [place] o divine 2020-03-22 2020-03-22 Outpatient EL NOE, MDA MDA [id number] MD 15:45:37 15:45:37 DWAYNE [place] o n 2020-03-14 2020-03-16 Inpatient UR FAROOQ, MDA Lymphoma/My [id number] MD 12:42:00 21:35:00 DIMITRI Knox o divine 2020-03-02 2020-03-02 Outpatient EL RODRIGUE III, MDA MDA [id number] 14:45:00 23:59:00 SHERIF Knox o divine 2020-01-06 2020-01-06 Outpatient EL BHUMIKA, MDA MDA [id number] 15:28:50 15:28:50 BRIGITTE Bustillos so divine 2020-01-04 2020-01-04 Outpatient EL GREG TYSON MDA MDA [id number] 12:33:10 23:59:00 Abilio o divine 2020-01-04 2020-01-04 Outpatient GREG MORILLO MDA MDA [id number] 11:49:56 12:32:00 Abilio o divine 2019-12-21 2019-12-21 Outpatient EL MDA MDA [id number] 13:57:37 23:59:00 Abilio o divine 2019-12-21 2019-12-21 Outpatient EL RODRIGUEZ, MDA MDA [id number] 09:30:00 13:56:00 VOLODYMYR [place] o n 2019-12-18 2019-12-18 Outpatient EL RODRIGUEZ, MDA MDA [id number] 11:30:44 11:43:37 VOLODYMYR [place] o n 2019-12-17 2019-12-17 Outpatient ALOK BAI, MDA MDA [id number] 13:59:51 23:59:00 BRIGITTE Bustillos so n 2019-12-17 2019-12-17 Outpatient ALOK BAI, MDA MDA [id number] 12:59:05 13:49:30 BRIGITTE Bustillos so n 2019-12-11 2019-12-11 Outpatient ALOK FRIAS, MDA MDA [id number] 07:28:20 07:28:20 VOLODYMYR [place] o n 2019-10-05 2019-10-05 Emergency MERRICK SMITH, MDA Emergency [id number] MD 10:03:24 17:13:00 JOANNA meadowso n 2019-08-06 2019-08-06 Outpatient ALOK FRIAS, MDA MDA [id number] 07:45:46 07:45:46 VOLODYMYR Knox o n 2017-09-09 2017-09-09 Appointeloy SORIANO [facility] [id number] [place] 13:20:00 13:20:00 t; IRVING SORIANO Phys ici JOSEPH, M.D. ans M.Nica 2017-08-23 2017-08-23 MITCH Myles [facility] [id number] [place] 12:00:00 12:00:00 t; Marina Parnell [facility] yoshi Serrano M.D. 2017-08-05 2017-08-05 Rupa SORIANO [facility] Gynecologic [id number] [place] 13:40:00 13:40:00 t; IRVING SORIANO, Oncology at [facility] Marina ANGELO [facility] yoshi Gray 2017-07-22 2017-07-22 MITCH Avalos [facility] [id number] [place] 11:20:00 11:20:00 t; IRVING SORIANO Phys ici JOSEPH, M.D. ans MFawad 2017-07-02 2017-07-02 MITCH Avalos [facility] [id number] [place] 11:30:00 11:30:00 t; IRVING SORIANO Phys ici JOSEPH, M.D. ans M.Nica 2017-06-17 2017-06-17 Rupa SORIANO [facility] Gynecologic [id number] [place] 08:00:00 08:00:00 t; IRVING SORIANO, Oncology at Marina Dominguez M.D. 2017-04-22 2017-04-22 Appointmen MITCH SORIANO Gynecologic [id number] [place] 09:00:00 09:00:00 t; IRVING SORIANO, Oncology at Marina Dominguez M.D. Results Test Description Test Time Test Comments Results Result Comments Source Fractionated Bilirubin 2022-03-11 13:11:07 Test Item Value Reference Range Interpretation Comme nts Bili Total (test code = 0.3 mg/dL See_Comment Indo cyanine Green (ICG) may cause 1974-06) falsely elevate d bilirubin results. Total and direct bilirubin must not be measured from samples co ntaining indocyanine gre en. False elevation of total biliru bin can be seen in patients with I gG concentrations above 28 g/L. [ Automated message] The system Oopl[employer] generated this result transmit yessenia reference range: <=1.2. T he reference range was not used to interpret this result as isra l/abnormal. Bili Direct (test code = See_Comment Ind ocyanine Green (ICG) may cause 1967-11) falsely elevate d bilirubin results. Total and direct bilirubin must not be measured from samples co ntaining indocyanine gre en. [Automated message] The sy stem which generated this result transmitted reference range : <=0.3. The reference range was not used to interpret this result as normal/abnormal . Bili Indirect (test code = See Note 0.0-0.9 U nable to calculate Indirect 1970-05) Bilirubin resul t due to some parameters are outside reportable range [facility] Rate 2022-03-11 13:11:04 Test Item Value Reference Range Interpretation Comments eGFR (test code = 47 See_[place] [address]) calculated with the 2020 CKD-EPI cr eatinine equation using creatinine, pat ient's age, and sex fo r adults 18 years of age and older. Other fa ctors, especially musc le mass, may affect accu racy and need to be considered.Acco rding to the Kidney Dise ase: Improving Globa l Outcomes (KDIGO ) CKD Work Group 2012 Clinical Practi ce Guideline, alligator trapper jacquelyn kidney disease (CKD) is defined as the abnormalities o f kidney structure or fu nction, present for mor e than 3 months, with implications fo r health. CKD jo-ann uld be classified by barby jj, GFR category, a nd albuminuria cat egory. KDIGO guideline s provide the fol lowing GFR categoriesS tage Description GFR mL/min/1.73 m2G 1* Normal or high >= 90G2* Mildly decrease d 60-89G3a Mildly to moderately decr eased 45-59G3b Modera tely to severely decrea sed 30-44G4 Severel y decreased 15-29 G5 Kidney failure <15*In the absence of evidence of kidney damag e, neither G1 nor G2 fulfill criteri a for CKD. [Automated message] The sy stem which generated this result transmit yessenia reference range : >=60 mL/min/1.73 sq. m. The reference range was not used to interpr et this result as normal/abnormal . Lab Interpretation Abnormal (test code = 03829-1) [facility] CenterPhosph[facility] [id number] 13:11:03 Test Item Value Reference Range Interpretation Comments Phosphorus (test code = 2777-1) 3.8 mg/dL 2.5-4.5 [facility] CenterUric [id number] 13:11:02 Test Item Value Reference Range Interpretation Comments Uric Acid (test code = 3084-1) 6.9 mg/dL 2.4-5.7 H Lab Interpretation (test code = Abnormal 62643-0) [facility] CenterLDH2022-10-23 13:11:01 Test Item Value Reference Range Interpretation Comments LDH (test code = 171 U/L 135-214 Results gre ater than 1651 26792-5) U/L may not be reliable due to matrix effec t with extended diluti on as it exceeds the man ufacturer's recommended roach it. Caution should be exerc ised when interpreting bianchi ch values and done in con junction with clinical c ontext. [facility] CenterTotal [id number] 13:11:00 Test Item Value Reference Range Interpretation Comments Total Protein (test code = 2885-2) 8.0 g/dL 6.4-8.3 [facility] CenterCalcium [id number] 13:10:59 Test Item Value Reference Range Interpretation Comments Calcium Lvl (test code = 72386-8) 9.3 mg/dL 8.4-10.2 [facility] CenterMagnesium [id number] 13:10:58 Test Item Value Reference Range Interpretation Comments Magnesium (test code = 14138-8) 1.9 mg/dL 1.6-2.6 [facility] CenterAlbumin [id number] 13:10:57 Test Item Value Reference Range Interpretation Comments Albumin Lvl (test code 4.0 See_Comment [Aut omated message] The = 1750-11) system which ge nerated this result tra nsmitted reference range : 3.5 - 5.2 gm/dL. The refe rence range was not used to interpret this result as normal/abnormal . [facility] CenterAlkaline Qbpemgiwtig2611-97-10 13:10:56 Test Item Value Reference Range Interpretation Comments Alk Phos (test code = 6768-6) 69 U/L 35-104 [facility] CenterAspartate Aminotransferase 2022-03-11 13:10:55 Test Item Value Reference Range Interpretation Comments AST (test code = 16 U/L See_Comment [Automated message] The 1919-12) system which ge nerated this result transmit yessenia reference range : <=32. The reference range was not used to interpr et this result as isra l/abnormal. [facility] CenterALT2022-10-23 13:10:54 Test Item Value Reference Range Interpretation Comments ALT (test code = 13 U/L See_Comment [Automated message] The 1741-10) system which ge nerated this result transmit yessenia reference range : <=33. The reference range was not used to interpr et this result as isra l/abnormal. [facility] CenterElectrolyte [id number] 13:10:53 Test Item Value Reference Range Interpretation Comments Sodium Lvl (test code = 141 See_Comment [Au tomated message] The 2950-06) system which ge nerated this result tra nsmitted reference range : 136 - 145 mEq/L. The reference range was not u sed to interpret this result as normal/abnormal . Potassium Lvl (test 4.2 See_Comment [Automa yessenia message] The code = 2823-3) system which generated this result tra nsmitted reference range : 3.5 - 5.1 mEq/L. The reference range was not u sed to interpret this result as normal/abnormal . Chloride (test code = 105 See_Comment [Auto mated message] The ) system which ge nerated this result tra nsmitted reference range : 98 - 107 mEq/L. The refe rence range was not u sed to interpret this result as normal/abnormal . CO2 (test code = 24 See_Comment [Automated message] The 2028-01) system which ge nerated this result tra nsmitted reference range : 22 - 29 mEq/L. The refe rence range was not u sed to interpret this result as normal/abnormal . Anion Gap (test code = 12 See_Comment [Aut omated message] The ) system which ge nerated this result tra nsmitted reference range : 4 - 14 mEq/L. The refe rence range was not u sed to interpret this result as normal/abnormal . [facility].Serum [id number] 13:10:52 Test Item Value Reference Range Interpretation Comments Creatinine (test code = 2160-0) 1.28 mg/dL 0.51-0.95 H Lab Interpretation (test code = Abnormal 29339-5) [facility] CenterGlucose Ezfej8970-17-14 13:10:51 Test Item Value Reference Range Interpretation Comments Glucose Level (test code 108 mg/dL 70-99 H Eff ective 12/14/15, = 2345-7) the glucose reference inter vals have been updat ed based on Americ an Diabetes Associ ation guidelines (Standards of Medical Care in Diabetes 2016. Diabetes Care 2 016; 39: S13-S22).Fa sting blood glucose:Normal: 70-99 mg/dLImpa ired fasting glucose (increased risk for diabetes or pre-diabetes): 100-125 mg/dLDiabetes mellitus: >/=12 6 mg/dL Random bl ood glucose:Normal: 70-199 mg/dLNot e: Random glucose >100 mg/dL is associ ated with increased risk for diabetes Lab Interpretation (test Abnormal code = 15519-5) [facility] CenterBUN2022-10-23 13:10:50 Test Item Value Reference Range Interpretation Comments BUN (test code = 3094-0) 19 mg/dL - [facility] CenterDifferential2022-10-23 12:51:21 Test Item Value Reference Range Interpretation Comments Neutrophil % (test code = 36.0 % 42.0-66.0 L 770-8) Lymphocyte % (test code = 55.5 % 24.0-44.0 H 736-9) Monocyte % (test code = 5.8 % 2.0-7.0 5905-5) Eosinophil % (test code = 1.7 % 1.0-4.0 713-8) Basophil % (test code = 0.8 % 0.0-1.0 706-2) IGRE % (test code = 0.2 % 0.0-0.4 IGRE % c ount 20058-9) includes Metamyelocytes, Myelocytes, and Promyelocytes. Neutrophil Abs (test code 2.32 K/uL 1.70-7.30 = 751-8) Lymphocyte Abs (test code 3.56 K/uL 1.00-4.80 = 731-0) Monocyte Abs (test code = 0.37 K/uL 0.08-0.70 742-7) Eosinophil Abs (test code 0.11 K/uL 0.04-0.40 = 711-2) Basophil Abs (test code = 0.05 K/uL 0.00-0.10 704-7) IG Abs (test code = 0.01 K/uL 0.00-0.04 56356-6) Lab Interpretation (test Abnormal code = 46588-9) [facility].UHD4347-34-74 12:51:14 Test Item Value Reference Range Interpretation Comments WBC (test code = 6.4 K/uL 4.0-11.0 6690-2) RBC (test code = 789-8) 3.04 See_Comment L [Au tomated message] The system [employer]opl[employer] generated this result transmitted ref erence range: 4.00 - 5 .50 M/uL. The refer ence range was not u sed to interpret this result as normal/abnor mal. Hgb (test code = 718-7) 10.8 See_Comment L [Au tomated message] The system [employer] generated this result transmitted ref erence range: 12.0 - 1 6.0 gm/dL. The refe rence range was not u sed to interpret this result as normal/abnor mal. Hct (test code = 32.5 % 37.0-47.0 L 4544-3) MCV (test code = 787-2) 107 fL 82-98 H MCH (test code = 785-6) 35.5 pg 27.0-31.0 H MCHC (test code = 33.2 See_Comment [Automate d message] 786-4) The system [employer]opl[employer] generated this result transmitted ref erence range: 31.0 - 3 6.0 gm/dL. The refe rence range was not u sed to interpret this result as normal/abnor mal. RDW-SD (test code = 53.4 fL 35.1-46.3 H 35570-3) RDW-CV (test code = 13.5 % 12.0-15.5 788-0) Platelet count (test 201 K/uL 140-440 code = 777-3) MPV (test code = 9.8 fL 4.0-10.4 00273-6) INRBC (test code = 0.0 % See_Comment The INRBC (instrument 78897-3) NRBC) value ref lects the enumeration of nucleated red b lood cells contained in a 200uL sampleof whole blood analyzed by the instrument. Thi s value maydiffer from the NRBC value repo rted in a manual differential,wh ich is based on a 100 cell differential. [Automated mess age] The system [employer] generated this result transmitted ref erence range: <=0.0. T he reference range was not used to int erpret this result as normal/abnormal . Lab Interpretation Abnormal (test code = 00814-4) [facility] COVID-19 (ELMA-CoV-2) PCR Ksvzlykxxkne9558-45-04 00:37:58 Test Item Value Reference Interpretation Comments Range COVID19 SARS Pre-OR Procedure Indication (test code = 90995) COVID19 SARS Result Not Detected Not Detected (test code = 66196-3) COVID19 SARS SARS-CoV-2 NOT Detected. Interpretation (test Reference Range: Not code = 29856) Detected Methodology: The Germain RealTime SARS-CoV-2 assay is a qualitative real-time reverse medical research associate polymerase chain reaction (test boring crew chief-PCR) test to detect RNA from SARS-CoV-2 in nasal, nasopharyngeal and oropharyngeal swabs from patients with signs and symptoms of infection who are suspected of COVID-19 by their health care provider. The Germain RealTime SARS-CoV-2 performed on the Bright Pattern000 System is a dual target assay with primers and probes for the RdRp and N genes. Results must be interpreted within the context of all relevant clinical and laboratory findings, and epidemiological risk factors. Positive results are indicative of the presence of SARS-CoV-2 RNA; clinical correlation with patient history and other diagnostic information is necessary to determine patient infection status. Positive results do not rule out bacterial infection or co-infection with other viruses. Negative results do not preclude SARS-CoV-2 infection and should not be used as the sole basis for patient management decisions. The Germain RealTime SARS-CoV-2 assay is for in vitro diagnostic use under FDA Emergency Use Authorization only. Testing is limited to laboratories certified under the Clinical Laboratory Improvement Amendments of 1988 (CLIA), 42U.S.C. 263a, to perform high complexity tests. The Test was performed by the CLIA-certified, high-complexity Molecular Diagnostics Laboratory (MDL) at [facility] under the Food and Drug Administration (FDA) s Emergency Use Authorization. Factsheet for patients: https://www.mdanderson.org/ AbbottFactSheetPatientsFact sheet for healthcare providers: https://www.mdanderson.org/ AbbottFactSheetHCP Test performed by:The [facility] Molecular Diagnostic [address] [place] [address] [facility] DorchesterTMP Interpretation Antibody Screen [id number] 20:48:44 Test Item Value Reference Range Interpretation Comments TMP Auto Neg At the present ABSC Interp time, patient (test code = plasma shows no ____DENNY BLACKWELL MD 2735) evidence of RBC - 49466Pjczp yessenia by: alloantibodies. DENNY EVANS MD - [id number] D ate/Time: 01.08.2022 15:4 8 PM CDT Transcribed Alejo e/Time: 01.08.2022 15:4 8 PM CDTElectronical ly Signed By: DENNY COTTRELL MD - [id number] on 12.19 15:48 PM [facility] CenterABORh2022-08-22 16:34:17 Test Item Value Reference Range Interpretation Comments ABORh. (test code = 882-1) O POS [facility] CenterClot Expiration [id number] 16:34:10 Test Item Value Reference Range Interpretation Comments T & S Expiration (test code = 01/11/2022 5318) [facility] CenterAntibody [id number] 16:32:52 Test Item Value Reference Range Interpretation Comments ABSC. (test code = 890-4) Negative ABSC [facility] CenterBlood qejahan6750-24-10 23:23:30 Test Item Value Reference Range Interpretation Comments Final Report (test No growth code = 8488) Path Review - Immunity and antibiotic Bottle/Isolator use may render culture (test code = 8499) negative. Ongoing infection requires repeat culture.The results have been reviewed and electronically signed by Pathologist:IVAN BRAND MD #[id number] BENNY (test code = If patient has a Central BENNY) Venous Catheter please draw a blood culture from the line.Short draw may invalidate quantitative blood culture results. [facility] CenterUrinalysis w/Microscopic if [id number] 08:54:20 Test Item Value Reference Range Interpretation Comments UA Color (test code = 99293-9) Straw Straw-Yellow UA Appear (test code = 5767-9) Hazy Clear A UA Glucose (test code = 5792-7) NEG NEG mg/dL UA Bili (test code = 5770-3) NEG NEG UA Ketones (test code = 5797-6) NEG NEG mg/dL UA Spec Grav (test code = 5810-7) 1.007 1.003-1.035 UA Blood (test code = 5794-3) Moderate NEG A UA pH (test code = 5803-2) 7.0 5.0-9.0 UA Protein (test code = 5804-0) 70 mg/dL NEG A UA Urobilinogen (test code = 5818-0) NEG NEG UA Nitrite (test code = 5802-4) POS NEG A UA Leuk Est (test code = 5799-2) Large NEG A Lab Interpretation (test code = Abnormal 90147-0) [facility] CenterUrinalysis with Microscopic 2022-01-02 08:49:52 Test Item Value Reference Interpretation Comments Range UA WBC (test code = See_Comment H [Automa yessenia 93120-0) message] The system which generated this result transmitted reference range : 0 - 2 /HPF. The reference range was not used to interpret this result as normal/abnormal . UA RBC (test code = 11 See_Comment H [Automa yessenia 50556-9) message] The system which generated this result transmitted reference range : 0 - 2 /HPF. The reference range was not used to interpret this result as normal/abnormal . UA Mucous (test code NOT SEEN Not Seen-Trace = 90609-5) /HPF UA Bacteria (test NOT SEEN NOT SEEN /HPF code = 11021-9) UA Squam Epi (test OCC None-Occasiona code = 34917-4) l /HPF UA WBC Clump (test 1+ NOT SEEN /HPF A code = 48324-7) BENNY (test code = Some reporting BENNY) parameters within the Urinalysis test have changed due to the implementation of new instrumentation in the [facility], allowing greater sensitivity of measurement. Urinalysis results reported by the [facility] using existing instrumentation, as well as Urinalysis testing performed manually or by backup methodology at the [facility] will remain relatively unchanged. New reporting parameters and units will now be reported for all campuses. Lab Interpretation Abnormal (test code = 81764-7) [facility] CenterProcalcitonin2022-08-16 03:32:14 Procalcitonin<0.04<=0.08 ng/mLUT [facility] CENTERUnMethod[facility] Medical CenterCRP2022-08-16 03:32:13 Test Item Value Reference Range Interpretation Comments CRP (test code = 5.25 mg/L Reference [place] CRP 96557-8) assay are as fo llows: Reference range s when used to assess cardi ac risk: <1.00 mg/L Low cardiovascular risk 1.00-3.00 mg/L Average cardiovascular risk >3.00 mg/L High cardi ovascular risk.Reference ranges when used to assess inflammatory responses: Less than or equal to 10.00 mg/L. [facility] CenterLipase2022-08-16 03:21:11 Test Item Value Reference Range Interpretation Comments Lipase Lvl (test code = 3040-3) 43 U/L 13-60 [facility] CenterAmylase [id number] 03:21:10 Test Item Value Reference Range Interpretation Comments Amylase Lvl (test code = 1798-8) 137 U/L 28-100 H Lab Interpretation (test code = Abnormal 79492-4) [facility] Glucose [id number] 03:12:59 Test Item Value Reference Range Interpretation Comments POC Glucose (test 96 mg/dL 70-99 Notifzack dRN code = 44386-6) NotifiedCapi llary blood samples, e.g. o btained by fingerstick, may have inaccurate results in patients wit h decreased perip heral blood flow. Met hod description: Al l results are shauna sured using Electroch emistry test methodolog y. The glucose in the sample mixes with the reagents on the test str ip. The reaction produc es an electric curren t. The amount of curre nt produced is proportional to the glucose concent ration in the blood. PO Sample Type Capillary (test code = 9554) Performing Lab [facility] (test code = of Bon PABLO And marisela [address]) Clinical Lab, [address] [place] [address], [place], [place] [address]; Video Surveillance Technician: aV Gates MD [facility] CenterCOVID-19 (SARS-CoV-2)Zgmtwywlmgmf-[id number] 03:06:31 Test Item Value Reference Range Interpretation Comments COVID19 Not Detected Not Detected (SARS-CoV-2) (test code = 41123-9) COVID19 SARS Inpatient Indication (test Admission code = 19633) Covid 19 Comment See Note The humble S ARS-CoV-2 (test code = [place] [address]) use on the paxton s Jessica System is a tosin l-time RT-PCR assay in tended for the qualita tive detection of SARS-CoV-2 (COV ID-19) viral RNA in nasopharyngeal swabs from either individuals maria pected of COVID-19 by their healthcare prov ider or from any individual, inc luding individuals wit hout symptoms or oth er reasons to susp ect COVID-19. A fac t sheet for patie nts provided by the payroll coordinator ([employer]) can be rev iewed at: https://www.[employer] .gov/m edia/288738/benja nload. A fact sheet fo Health Care pro viders is provided by the payroll coordinator ([employer]) and can be reviewed at: https://www.[employer] .gov/m edia/238620/benja nload Results must be interpreted wit hin the context of all relevant clinic al and laboratory find ings and should not form the sole basis for a diagnosis or treatment decis ion. Positive result s do not rule out bacterial infec tion or co-infection with other viruses. Negative result s do not preclude SARS-CoV-2 infe ction and must be com bined with clinical observations, p atient history, and/or epidemiological information. Th is assay has been authorized by t [facility] for use only un jacqueline Emergency Use Authorization ( EUA) in laboratories that have been CLIA-certified to perform moderate-comple xity and high-comple xity tests. The Microbiology Laboratory at [facility], CLIA Accreditation #[id number] and CAP Accreditation #[id number], verif ied the performance characteristics of this assay. Int ernal controls are us ed to monitor all sta ges of the test proces s. [facility] VBG+[id number] 02:40:37 Test Item Value Reference Range Interpretation Comments POC VB pH (test 7.33 7.31-7.41 code = 6719) POC VB pCO2 (test 50 See_Comment [Automate d message] code = 6718) The system whic h generated this result transmitted ref erence range: 41 - 51 mmHg. The reference r gustavo was not used to interpret this result as normal/abnor mal. POC VB pO2 (test 31 mmHg code = 6720) POC VB TCO2 (test 28 See_Comment [Automate d message] code = 2026-1) The system [facility] generated this result transmitted ref erence range: 24 - 29 mEq/L. The reference r gustavo was not used to interpret this result as normal/abnor mal. POC VB Bicarb 27 mmol/L 23-28 (test code = 36340-5) POC VB Base Ex 0 mmol/L -2-3 (test code = 1927-3) POC VB O2 Sat 53 % (test code = 2711-0) POC VB LAC (test 1.0 mmol/L 0.9-1.7 Method desc ription: code = 2519-7) The i-STAT is an analyzer used f or in vitro quantific ation of various anal ytes in whole blood. Th e device uses a s vean disposable cart ridge which contains microfabricated sensors, a armond bration solution, fluid ics system, and a w aste chamber. Each t est cartridge conta ins chemically sens itive biosensors on a silicon chip th at are configured to p erform specific tests. The microfabricated sensors measure analyte concent ration by an electroch emical assay. POC Sample Type Venous (test code = 6690) POC Clean Dev Yes (test code = 6672) Performing Lab [facility] (test code = [facility] [address]) Clinical Lab, [address] [place] [address], [place], [place] [address]; Video Surveillance Technician: Va Gates MD [facility] MD [facility] CenterCOVID-19 (SARS-CoV-2) PCR- Asymptomatic [id number] 05:43:14 Test Item Value Reference Range Interpretation Comments COVID19 (SARS Not Detected Not Detected CoV-2) Result (test code = ____[place] i [place] a 19985-8) qualitative reverse-transcr iptase polymerase alphonse n reaction (RT-PC R) developed for t he Jolie HUMBLE 680 0 system and inte nded for qualitative detection of SA RS CoV-2 RNA in nasopharyngeal and oropharyngeal s wab specimens colle cted from any indivi duals, including those suspected of CO VID-19 by their health care provider, and t hose without symptom s or other reasons t o suspect COVID-1 9. A fact sheet for patients provid ed by the manufacture r ([employer]) c an be reviewed at:https://www. fda.go v/media/722296/ marianlo ad. A fact shee t for Health Care pro viders is provided by the payroll coordinator ([employer]) and can be reviewed at: https://www.fda .gov/m edia/798574/benja nload Results must be interpreted wit hin the context of all relevant clinic al and laboratory find ings and should not form the sole basis for a diagnosis or treatment decis ion. Positive result s do not rule out bacterial infec tion or co-infection with other viruses. Negative result s do not rule out SARS-CoV-2 and must be combined wit h clinical observations, p atient history, and/or epidemiological information. "Presumptive Positive" resul ts are due to partial amplification o f SARS-CoV-2 targ ets and indicates l ow amounts of viru s present in the specimen at or near the limit of detection. Regardless, individuals wit h "Presumptive Positive" resul ts should be manag ed per institutional guidelines as individuals pos itive for SARS-CoV-2 virus, including use o f appropriate inf ection control protoco ls. Internal contro ls are included to ass ess for possible amplification inhibitors. If inhibition is detected, testi ng is repeated and if inhibition is confirmed the specimen is res ulted as "Invalid". W hen an "Invalid" resul t occurs, it is recommended to wait 3 days before submitting a ne w specimen for te sting if clinically indicated. This assay has been approv ed by the FDA for use only under Emergency Use Authorization ( EUA) in laboratories that have been CLIA-certified to perform moderate-comple xity and high-comple xity tests. The performance characteristics of this assay were verified by the Microbiology Laboratory at [facility] [place], CLIA Accreditation # : [id number] and CAP Accreditation # : [id number]. COVID19 SARS MANAGER OF CORPORATE Swab Source (test code = 64865) COVID19 SARS Pre-Out of OR Indication (test Procedure code = 39669) [facility] CenterG [id number] 15:17:03 Test Item Value Reference Range Interpretation Comments UA Color (test code = Yellow Straw-Yellow 59117-0) UA Appear (test code = Cloudy Clear A 5767-9) UA Glucose (test code = NEG NEG mg/dL 5792-7) UA Bili (test code = NEG NEG 5770-3) UA Ketones (test code = NEG NEG mg/dL 5797-6) UA Spec Grav (test code 1.007 1.003-1.035 = 5810-7) UA Blood (test code = Moderate NEG A 5794-3) UA pH (test code = 6.5 5.0-9.0 5803-2) UA Protein (test code = 100 mg/dL NEG A 5804-0) UA Urobilinogen (test NEG NEG code = 5818-0) UA Nitrite (test code = POS NEG A 5802-4) UA Leuk Est (test code Large NEG A = 5799-2) UA Comment (test code = See Comment Many WBC clumps 54629-8) seen in additio n to individual WBCs Lab Interpretation Abnormal (test code = 98504-4) [facility] CenterGUA [id number] 15:17:02 Test Item Value Reference Interpretation Comments Range UA RBC (test code = 7 See_Comment H [Automa yessenia 26529-6) message] The system which generated this result transmitted reference range : 0 - 2 /HPF. The reference range was not used to interpret this result as normal/abnormal . UA WBC (test code = See_Comment H [Automa yessenia 15639-4) message] The system which generated this result transmitted reference range : 0 - 2 /HPF. The reference range was not used to interpret this result as normal/abnormal . UA Mucous (test code NOT SEEN Not Seen-Trace = 93584-6) /HPF UA Bacteria (test 3+ NOT SEEN /HPF A code = 13334-1) UA Squam Epi (test OCC None-Occasiona code = 24425-6) l /HPF UA WBC Clump (test 4+ NOT SEEN /HPF A code = 08600-3) BENNY (test code = Some reporting BENNY) parameters within the Urinalysis test have changed due to the implementation of new instrumentation in the [facility], allowing greater sensitivity of measurement. Urinalysis results reported by the [facility] using existing instrumentation, as well as Urinalysis testing performed manually or by backup methodology at the [facility] will remain relatively unchanged. New reporting parameters and units will now be reported for all campuses. Lab Interpretation Abnormal (test code = 43971-3) [facility] CenterHemoglobin [id number] 15:04:45 Test Item Value Reference Range Interpretation Comments A1C (test code = 4.9 % 4.3-5.6 HbA1c value s >=6.5% are 4548-4) diagnostic of d iabetes mellitus.Diagno sis should be confirmed by repeat testing.Therape utic Action suggested: >8.0 % HbA1c; Goal oftherapy: <7.0% HbA1c [facility] CenteraPTT2022-02-03 00:33:58 Test Item Value Reference Range Interpretation Comments aPTT (test code = 35.1 See_Comment [Automate d message] The 6773) system which ge nerated this result transmit yessenia reference range : 24.7 - 36.8 second(s). The reference range was not used to interpr et this result as isra l/abnormal. [facility] CenterProthrombin Time with [id number] 00:33:57 Test Item Value Reference Range Interpretation Comments PT (test code = 6746) 14.0 See_Comment H [Auto mated message] The system whic h generated this result transmitted ref erence range: 11.5 - 1 3.9 second(s). The reference range was not used to int erpret this result as normal/abnormal . INR (test code = 5973) 1.17 0.90-1.10 H Lab Interpretation (test Abnormal code = 59680-3) [facility] CenterGlucose, [id number] 18:00:33 Test Item Value Reference Range Interpretation Comments Glucose Random (test 86 mg/dL 70-199 Effecti ve 12/14/15, the code = 9360) glucose referen ce intervals have been updated based o n [place] [employer] jesu delines (Standards of M edical Care in Diabete s 2016. Diabetes Care 2 016; 39: S13-S22).Fastin g blood glucose:Normal: 70-99 mg/dLImpaired f asting glucose (increa sed risk for diabetes or pre-diabetes): 100-125 mg/dLDiabetes m ellitus: >/=126 mg/dL Ra ndom blood glucose:N ormal: 70-199 mg/dLNot e: Random glucose >100 mg /dL is associated with increased risk for diabetes [facility] CenterAnion [id number] 18:00:31 Test Item Value Reference Range Interpretation Comments Anion Gap (test code 10 See_Comment [Autom ated message] The = 4017) system which ge nerated this result transmit yessenia reference range : 4 - 14 mEq/L. The refe rence range was not used to interpret this result as normal/abnormal . [facility] CenterChloride [id number] 18:00:30 Test Item Value Reference Range Interpretation Comments Chloride (test code = 105 See_Comment [Auto mated message] The 3309) system which ge nerated this result tra nsmitted reference range : 98 - 107 mEq/L. The refe rence range was not u sed to interpret this result as normal/abnormal . [facility] CenterPotassium2021-12-09 18:00:28 Test Item Value Reference Range Interpretation Comments Potassium Lvl (test 4.6 See_Comment [Automa yessenia message] The code = 6854) system which ge nerated this result tra nsmitted reference range : 3.5 - 5.1 mEq/L. The reference range was not u sed to interpret this result as normal/abnormal . [facility] CenterCarbon Dioxide [id number] 18:00:27 Test Item Value Reference Range Interpretation Comments CO2 (test code = 28 See_Comment [Automated message] The 5833) system which ge nerated this result transmit yessenia reference range : 22 - 29 mEq/L. The refe rence range was not used to interpret this result as normal/abnormal . [facility] Clubodium [id number] 18:00:26 Test Item Value Reference Range Interpretation Comments Sodium Lvl (test code 143 See_Comment [Auto mated message] The = 1853) system which ge nerated this result tra nsmitted reference range : 136 - 145 mEq/L. The refe rence range was not used to interpret this result as normal/abnormal . [facility] Use [id number] 17:20:00 Test Item Value Reference Range Interpretation Comments Completed (test code = Completed) DONE [facility] - [id number] 00:00:00 Test Item Value Reference Range Interpretation Comments PAP REPORT (test code = 84455-0) See Comment [facility]
--- NOTE | 2022-03-25 14:06 | RAD REPORT ---
EXAM DESCRIPTION: CT - Sinus Wo Cont - 03/25/2022 1:55 pm CLINICAL HISTORY: Left frontal sinus pain/ swelling x 2 weeks Pain and swelling COMPARISON: No comparisons TECHNIQUE: Axial 1 mm thick images of the paranasal sinuses were obtained. Coronal and sagittal refo rmatted images were reviewed. All CT scans are performed using dose optimization technique as appropriate and may include automated exposure control or mA/KV adjustment according to patient size. FINDINGS: The paranasal sinuses and mastoids are clear. The ostiomeatal units are patent. The frontal recesses are patent. No significant skull-base finding. IMPRESSION: Unremarkable examination.
--- NOTE | 2022-03-25 14:36 | ER ---
Nurse's Notes [facility] Name: Jaqueline Fuentes Age: 61 yrs Sex: Female : 1960 Arrival Date: 03/25/2022 Time: 12:31 Bed 19 Private MD: Diagnosis: Sinus pain Presentation: 03/25 12:36 Chief complaint: Sinus pain, headache , and facial swelling x 2 weeks, worse this hb weekend. Coronavirus screen: At this time, the client does not indicate any symptoms associated with coronavirus-19. Ebola Screen: No symptoms or risks identified at this time. Risk Assessment: Do you want to hurt yourself or someone else? Patient reports no desire to harm self or others. Onset of symptoms was March 10, 2022. 12:36 Method Of Arrival: Ambulatory hb 12:36 Acuity: CM 3 hb 13:14 Initial Sepsis Screen: Does the patient meet any 2 criteria? No. Patient's initial em6 sepsis screen is negative. Does the patient have a suspected source of infection? No. Patient's initial sepsis screen is negative. Triage Assessment: 13:13 Headache History: Denies prior headaches. General: Appears comfortable, Behavior is em6 cooperative. Pain: Pain began 2 weeks ago Also complains of nausea. Pain: Complains of pain in head. Historical: - Allergies: 12:38 Macrobid; hb 12:38 IV Contrast; hb 12:38 Codeine; hb - PMHx: 12:38 Lymphoma; Hydronephrosis; hb - PSHx: 12:38 Nephrostomy Tybe - right; hb - Immunization history:: Adult Immunizations unknown. - Social history:: Smoking status: unknown Patient uses. Screenin:08 Fall Risk Total Mera Fall Scale indicates No Risk (0-24 pts). em6 13:13 Abuse screen: Denies threats or abuse. Nutritional screening: No deficits noted. em6 Tuberculosis screening: No symptoms or risk factors identified. Assessment: 13:08 General: Appears in no apparent distress. Behavior is cooperative. Pain: Denies pain. em6 Pain: Complains of pain in head Pain does not radiate. Pain currently is 6 out of 10 on a pain scale. Quality of pain is described as pressure. Neuro: Balderas Agitation-Sedation Scale (RASS):. Neuro: Balderas Agitation-Sedation Scale (RASS): 0 - Alert and Calm Level of Consciousness is awake, alert, obeys commands, Oriented to person, place, time, situation, Reports headache frontal area. Cardiovascular: Heart tones present Patient's skin is warm and dry. Respiratory: Airway is patent Respiratory effort is even, unlabored, Respiratory pattern is regular, symmetrical, Breath sounds are clear bilaterally. GI: No signs and/or symptoms were reported involving the gastrointestinal system. : No signs and/or symptoms were reported regarding the genitourinary system. EENT: Eyes swollen and tears noted . Reports nasal congestion swelling in the face noted. . Derm: No signs and/or symptoms reported regarding the dermatologic system. Musculoskeletal: Circulation, motion, and sensation intact. Range of motion: intact in all extremities. 14:10 Reassessment: Patient appears in no apparent distress at this time. No changes from em6 previously documented assessment. Patient and/or family updated on plan of care and expected duration. Pain level reassessed. Patient is alert, oriented x 3, equal unlabored respirations, skin warm/dry/pink. Vital Signs: 12:36 BP 171 / 97; Pulse 82; Resp 16; Temp 98.7; Pulse Ox 98% on R/A; Weight 63.5 kg; Height hb 5 ft. 5 in. (165.10 cm); Pain 10/10; 13:15 BP 151 / 99; Pulse 58; Resp 18; Pulse Ox 98% on R/A; em6 14:15 BP 151 / 93; Pulse 62; Resp 16; Pulse Ox 100% on R/A; em6 12:36 Body Mass Index 23.30 (63.50 kg, 165.10 cm) hb ED Course: 12:31 Patient arrived in ED. rg4 12:38 Triage completed. hb 12:40 Deep Spencer DO is Attending Physician. ms3 13:03 Christel Byrd, RN is Primary Nurse. em6 13:13 Arm band placed on. em6 13:14 Bed in low position. Call light in reach. Side rails up X2. Pulse ox on. NIBP on. Warm em6 blanket given. 13:[address] In Process Unspecified. EDMS 14:42 No provider procedures requiring assistance completed. Patient did not have IV access em6 during this emergency room visit. Administered Medications: No medications were administered Medication: 14:42 VIS not applicable for this client. em6 Outcome: 14:35 Discharge ordered by . ms3 14:42 Discharged to home ambulatory. em6 14:42 Condition: stable 14:42 Discharge instructions given to patient, Instructed on discharge instructions, follow up and referral plans. medication usage, Demonstrated understanding of instructions, follow-up care, medications, Prescriptions given X 2. 14:42 Patient left the ED. em6 Signatures: Dispatcher [employer] EDMS Micaela Robertson, RN RN Yoselin Trammell rg4 Deep Spencer DO DO ms3 Christel Byrd RN RN em6 Corrections: (The following items were deleted from the chart) 13:14 13:14 Social history: Smoking status: Patient reports the use of cigarette tobacco em6 products, em6
--- NOTE | 2022-03-25 14:36 | EDPHYS ---
Physician Documentation [facility] Name: Jaqueline Fuentes Age: 61 yrs Sex: Female : 1960 Arrival Date: 03/25/2022 Time: 12:31 Bed 19 Private MD: ED Physician Deep Spencer HPI: 03/25 14:35 This 61 yrs old Black Female presents to ER via Ambulatory with complaints of Sinus ms3 Pain. 14:35 The patient or guardian reports Left frontal sinus pain. Onset: The symptoms/episode ms3 began/occurred acutely, 2 week(s) ago. Severity of symptoms: At their worst the symptoms were severe, a " 10" out of "10", in the emergency department the symptoms are unchanged. Modifying factors: The symptoms are alleviated by nothing, the symptoms are aggravated by Looking down. Associated signs and symptoms: The patient has no apparent associated signs or symptoms. Historical: - Allergies: 12:38 Macrobid; hb 12:38 IV Contrast; hb 12:38 Codeine; hb - PMHx: 12:38 Lymphoma; Hydronephrosis; hb - PSHx: 12:38 Nephrostomy Tybe - right; hb - Immunization history:: Adult Immunizations unknown. - Social history:: Smoking status: unknown Patient uses. ROS: 14:35 Constitutional: Negative for fever, and chills. ms3 14:35 Cardiovascular: Negative for chest pain, and palpitations. MS/Extremity: Negative for injury and deformity, Skin: Negative for injury, rash, and discoloration, Neuro: Negative for headache, weakness, numbness, tingling. 14:35 ENT: Positive for sinus pain. 14:35 All other systems are negative. Exam: 14:35 Constitutional: This is a well developed, well nourished patient who is awake, alert, ms3 and in no acute distress. Head/Face: Normocephalic, atraumatic. Neck: Trachea midline, no cervical lymphadenopathy. Supple, full range of motion without nuchal rigidity, or vertebral point tenderness. No Meningismus. Chest/axilla: Normal chest wall appearance and motion. Nontender with no deformity. Cardiovascular: Regular rate and rhythm with a normal S1 and S2. No gallops, murmurs, or rubs. Normal PMI, no JVD. No pulse deficits. Respiratory: Lungs have equal breath sounds bilaterally, clear to auscultation and percussion. No rales, rhonchi or wheezes noted. No increased work of breathing, no retractions or nasal flaring. Skin: Warm, dry with normal turgor. Normal color with no rashes, no lesions, and no evidence of cellulitis. MS/ Extremity: Pulses equal, no cyanosis. Neurovascular intact. Full, normal range of motion. Neuro: Awake and alert, GCS 15, oriented to person, place, time, and situation. Cranial nerves II-XII grossly intact. Motor strength 5/5 in all extremities. Sensory grossly intact. Cerebellar exam normal. Normal gait. 14:35 ENT: Nose: Left frontal sinus TTP. Vital Signs: 12:36 BP 171 / 97; Pulse 82; Resp 16; Temp 98.7; Pulse Ox 98% on R/A; Weight 63.5 kg; Height hb 5 ft. 5 in. (165.10 cm); Pain 10/10; 13:15 BP 151 / 99; Pulse 58; Resp 18; Pulse Ox 98% on R/A; em6 14:15 BP 151 / 93; Pulse 62; Resp 16; Pulse Ox 100% on R/A; em6 12:36 Body Mass Index 23.30 (63.50 kg, 165.10 cm) hb MDM: 12:58 Patient medically screened. ms3 14:35 Differential Diagnosis: Upper Respiratory Infection Sinusitis Other Allergic rhinnitis. ms3 Data reviewed: vital signs, nurses notes, radiologic studies, CT scan, and as a result, I will discharge patient. Counseling: I had a detailed discussion with the patient and/or guardian regarding: the historical points, exam findings, and any diagnostic results supporting the discharge/admit diagnosis, radiology results, the need for outpatient follow up, to return to the emergency department if symptoms worsen or persist or if there are any questions or concerns that arise at home. ED course: Discussed CT scan with patient. Patient to follow-up with her primary care physician in 2 to 3 days. Patient understands and agrees with plan. All questions were answered. Return precautions discussed include worsening symptoms, or any other concerns.. 03/25 13:35 Order name: Sinus Wo Cont CT; Complete Time: 14:11 ms3 Administered Medications: No medications were administered Disposition Summary: 03/25/22 14:35 Discharge Ordered Location: Home ms3 Condition: Stable ms3 Diagnosis - Sinus pain ms3 Followup: ms3 - With: Private Physician - When: 2 - 3 days - Reason: Recheck today's complaints Discharge Instructions: - Discharge Summary Sheet ms3 - Allergic Rhinitis, Adult ms3 Forms: - Medication Reconciliation Form ms3 - Thank You Letter ms3 - Antibiotic Education ms3 - Prescription Opioid Use ms3 Prescriptions: - Flonase Allergy Relief 50 mcg/actuation Nasal spray,suspension - spray 2 spray by INTRANASAL route once daily; 14 milliliter; Refills: 0, ms3 Product Selection Permitted - Loratadine 10 mg Oral Tablet - take 1 tablet by ORAL route once daily; 14 tablet; Refills: 0, Product ms3 Selection Permitted Signatures: Dispatcher [employer] EDMicaela Kee, RN RN Deep Almaraz, DO ms3 Christel Byrd RN RN em6 Corrections: (The following items were deleted from the chart) 13:14 13:14 Social history: Smoking status: Patient reports the use of cigarette tobacco em6 products, em6
[2022-03-25 14:50] VITALS: O2SAT 100
[2022-03-25 14:58] VITALS: BP 176/87; TEMP 97
== END 2022-03-25 14:42 | disposition home or self-care (01) ==
LOC: ER 12:27
DX: J34.89 Other specified disorders of nose and nasal sinuses (principal)
CPT/HCPCS: 70486; 99283